=== PATIENT | female | born 2000 | race Caucasian/White ===

== ENCOUNTER 2022-03-31 19:02 | Emergency (ER) | payer BC, SELFPAY ==
[2022-03-31 19:14] VITALS: BP 135/93; PULSE 118; RESP 16; TEMP 36.6; O2SAT 99; BMI 28.9
--- NOTE | 2022-03-31 19:31 | ED_ITS ---
HPI - General Adult General Time Seen by Provider: 19:31 Date Seen: 03/31/22 Chief complaint: Fever Stated complaint: fever, nausea, body aches Time Seen by Provider: 03/31/22 19:30 Source: patient and RN notes reviewed Mode of arrival: ambulatory Limitations: no limitations History of Present Illness HPI narrative: Patient is coming in accompanied by family with concern of fever, body aches. She had 1 episode of vomiting that just happened on her way in. Has noticed increased urinary frequency. No sore throat, no cough, no other focal symptoms. No abdominal pain, no diarrhea. She states she had COVID 2 years ago, states she has not been around anybody with COVID. She has had no travel. She is no longer feeling nauseated, states she feels back to normal as far as her stomach. Related Data Home Medications Medication Instructions Recorded Confirmed ferrous sulfate PO 03/31/22 Allergies Allergy/AdvReac Type Severity Reaction Status Date / Time amoxicillin Allergy Verified 03/31/22 19:16 ibuprofen Allergy Verified 03/31/22 19:16 Review of Systems Status of ROS: Reports: 6 or more systems reviewed and unremarkable except as noted in History and below [facility] Medical History (Updated 03/31/22 @ 21:19 by Jeimy Katz MD) Anemia Social History Smoking Status: Never smoker How often do you have a drink containing alcohol: monthly or less AUDIT-C Alcohol total score: 1 Non-prescribed substance use: denies use Exam Const: Vital Signs, click to edit/add: Vital Signs - 24 hr 03/31/22 19:14 Temperature 97.8 F Pulse Rate [Left P ulse Oximeter] 118 H Respiratory Rate 16 Blood Pressure [Le ft Upper Arm] 135/93 H Pulse Oximetry 99 Oxygen Delivery Me thod Room Air Documenting provider has reviewed patient's vital signs: yes Common normals: no apparent distress, average body habitus, oriented x3, no limitations, healthy appearing, alert and well nourished General appearance: cooperative, comfortable and well kempt HENMT: Common normals: normocephalic, head/scalp atraumatic, hearing grossly normal bilaterally, external nose normal, nasal mucous membranes and turbinates normal, moist oral mucous membranes, oropharynx normal, dentition normal and gingiva normal Head and scalp: normocephalic and atraumatic Nose: external nose normal and nasal mucous membranes and turbinates normal Eye: Common normals: PERRL, EOMs intact bilaterally, conjunctivae normal and no scleral icterus Conjunctiva: conjunctiva(e) normal Pupil: PERRL Neck & C-Spine: Common normals: full ROM, no lymphadenopathy, supple, no meningeal signs, no JVD and thyroid normal Thyroid: thyroid normal Resp: Common normals: normal respiratory effort, no retractions, no use of accessory muscles and clear to auscultation bilaterally Auscultation: clear to auscultation bilaterally Cardio: Common normals: no JVD, regular rate (Did not sound fast when I was listening to her), regular rhythm, S1 normal heart sound, S2 normal heart sound, no gallops, no clicks and no murmurs Rate: regular rate (Did not sound fast when I was listening to her) Rhythm: regular rhythm Heart sounds: S1 normal and S2 normal GI: Common normals: Normal to inspection, nondistended, normoactive bowel sounds present, soft to palpation, non-tender, no hepatosplenomegaly, no masses and no bruits Palpation: soft and no hepatosplenomegaly Neuro: Common normals: oriented x3 Sensorium/orientation: alert Meningeal signs: no meningeal signs Speech: speech normal Gait (neuro): normal gait Psych: Appearance: well kempt Skin: Common normals: no rashes or lesions noted General skin exam: no rashes or lesions noted Course Course Hospital Course: She has had some increased urinary frequency but no other symptoms with this. Reviewed with her that we will collect urinalysis. She denies any history of UTIs. She denies any chance for . Will also get a CBC to help us delineate whether this might be viral or bacterial and workup potentially needed. We are going to do COVID/influenza/RSV swab. Did review with her that I am suspect regarding COVID if her urinalysis does come back normal. Vital Signs Vital signs: Initial Vital Signs Temperature 97.8 F 03/31/22 19:14 Temperature Source Temporal Artery Scan 03/31/22 19:14 Pulse Rate 118 H 03/31/22 19:14 Pulse Rhythm 03/31/22 19:14 Respiratory Rate 16 03/31/22 19:14 Blood Pressure 135/93 H 03/31/22 19:14 Blood Pressure Mean 107 03/31/22 19:14 Blood Pressure Position Sitting 03/31/22 19:14 Pulse Oximetry 99 03/31/22 19:14 Oxygen Delivery Method 03/31/22 19:14 Vital Signs Temperature 97.8 F 03/31/22 19:14 Pulse Rate 118 H 03/31/22 19:14 Respiratory Rate 16 03/31/22 19:14 Blood Pressure 135/93 H 03/31/22 19:14 Pulse Oximetry 99 03/31/22 19:14 Oxygen Delivery Method 03/31/22 19:14 Temperature 97.8 F 03/31/22 19:14 Pulse Rate 118 H 03/31/22 19:14 Respiratory Rate 16 03/31/22 19:14 Blood Pressure 135/93 H 03/31/22 19:14 Pulse Oximetry 99 03/31/22 19:14 Oxygen Delivery Method 03/31/22 19:14 Medical Decision Making Lab Data Lab results reviewed: Yes I reviewed the patient's lab results Lab results narrative: Patient has known thrombocytopenia due to splenomegaly insert request radiation, has chronic thrombocytopenia in the 40,000 range. Labs: Lab Results 03/31/22 03/31/22 03/31/22 Range/Units 19:42 20:02 20:16 WBC 2.98 L (4.50-11.00) K/uL RBC 4.24 (4.00-5.20) m/uL Hgb 12.6 (12.0-16.0) gm/dL Hct 37.2 (33.0-51.0) % MCV 88 (80-100) fL MCH 30 (26-34) pg MCHC 34 (32-36) gm/dL RDW Coeff of Joss 14.4 (11.5-15.5) % Plt Count 42 L* (140-440) K/uL Neut % (Auto) 83.6 H (42.0-72.0) % Lymph % (Auto) 12.1 L (20-44) % [place] % (Auto) 3.0 (0.0-11.0) % Eos % (Auto) 1.0 (0.0-7.0) % Baso % (Auto) 0.0 (0.0-3.0) % Neut # (Auto) 2.50 (1.7-7.0) K/uL Lymph # (Auto) 0.40 L (0.90-2.90) K/uL [place] # (Auto) 0.10 (0.00-0.90) K/UL Eos # (Auto) 0.00 (0.00-0.50) K/uL Baso # (Auto) 0.00 (0.00-0.30) K/uL Abs Immat Gran (auto) 0.01 (0.00-0.30) K/uL Urine Color Yellow (Yellow) Urine Appearance Clear (Clear) Urine pH 8.5 (5.0-8.5) Ur Specific [place] 1.020 (1.000-1.030) Urine Protein Negative (Negative) Urine Glucose (UA) Negative (Negative) Urine Ketones Negative (Negative) Urine Blood 1+ A (Negative) Urine Nitrite Negative (Negative) Urine Bilirubin Negative (Negative) Urine Urobilinogen 4.0 (0.2-1.0) Ur Leukocyte Esterase Trace A (Negative) Urine RBC 10-25 A (0-2) Urine WBC 10-25 A (0-5) Ur Squamous Epith Cells Moderate A (None-Few) Urine Bacteria Moderate A (None) SARS-CoV-2 (PCR) Negative SARS-CoV-2 (Negative) Influenza Type A (PCR) Negative PCR FLU A (Negative) Influenza Type B (PCR) Negative PCR FLU B (Negative) RSV (PCR) Negative PCR RSV (Negative) Critical Care Time Critical Care Time Critical Care Time: No Discharge Plan Discharge Clinical Impression: Fever, Acute viral syndrome Patient Disposition: Home, Self-Care Condition: Stable Instructions: Fever in Adults (ED), Viral Syndrome (ED) Additional Instructions: Take Tylenol per bottle directions as needed for fever. Stay hydrated, drink plenty of fluids. Recheck if you develop a specific symptoms such as a cough, recurrent vomiting, sore throat, etc.. If you have continued symptoms but are not changing, would consider rechecking COVID testing in 24-48 hours. Note provided to be off work for the next 2 days. Activity Level: Activity as Tolerated Discharge Diet: Regular Prescriptions: No Action ferrous sulfate [Iron (ferrous sulfate)] PO Stand Alone Forms: [employer] [facility] Info Instructions
--- NOTE | 2022-03-31 20:03 | ED.NURSE ---
labs drawn and collected the COVID test.
[2022-03-31 20:08] LABS: Hematocrit 37.2 % (33.0-51.0); Hemoglobin* 12.6 gm/dL (12.0-16.0); Immature Granulocytes Abs Auto 0.01 K/uL (0.00-0.30); Lymphocytes Percent Auto 12.1 % (20-44); Mean Corpuscular HGB Conc 34 gm/dL (32-36); Mean Corpuscular Hemoglobin 30 pg (26-34); Mean Corpuscular Volume 88 fL (80-100); Neutrophils Percent Auto 83.6 % (42.0-72.0); RDW Coefficient of Variation % 14.4 % (11.5-15.5); Red Blood Count 4.24 m/uL (4.00-5.20); White Blood Count* 2.98 K/uL (4.50-11.00)
[2022-03-31 20:31] LABS: Appearance Urine Clear (Clear); Bilirubin Urine Negative (Negative); Blood Urine 1+ (Negative); Color Urine Yellow (Yellow); Glucose Urine Negative (Negative); Ketones Urine Negative (Negative); Leukocyte Esterase Urine Trace (Negative); Nitrite Urine Negative (Negative); Protein Urine Negative (Negative); pH Urine 8.5 (5.0-8.5)
[2022-03-31 20:43] LABS: PCR FLU A Negative PCR FLU A (Negative); PCR FLU B Negative PCR FLU B (Negative); PCR RSV Negative PCR RSV (Negative)
[2022-03-31 20:47] LABS: SARS PCR* Negative SARS-CoV-2 (Negative)
[2022-03-31 20:48] LABS: Bacteria Urine Moderate; Squamous Epithelial Cell Urine Moderate (None-Few)
[2022-03-31 20:54] LABS: Platelet Count* 42 K/uL (140-440); Slide Review Reflex No
--- NOTE | 2022-03-31 20:54 | ED.NURSE ---
Noticed from lab critical plt [address] Clemente of this
[2022-03-31 21:00] VITALS: BP 104/60; PULSE 110; RESP 16; RESP 18; TEMP 38.6; O2SAT 98
--- NOTE | 2022-03-31 21:02 | ED.NURSE ---
Dr. Clemente is in talking with patient
[2022-03-31] MEDS: ACETAMINOPHEN 500 MG TABLET 1000 MG PO (21:09)
[2022-03-31 21:20] VITALS: PULSE 114; RESP 18; TEMP 38.6; O2SAT 98
[2022-03-31 21:28] VITALS: BP 104/60; PULSE 110; RESP 18; TEMP 38.6
== END 2022-03-31 21:30 | disposition home or self-care (01) ==
PROVIDERS: Emergency Provider Family Medicine
DX: R50.9 Fever, unspecified (principal); B34.9 Viral infection, unspecified
CPT/HCPCS: 36415; 81001; 85025; 87086; 87186; 87502; 87634; 87635; 99282; 99283; A9270

== ENCOUNTER 2022-04-02 02:26 | Inpatient (IN) | payer BC, SELFPAY ==
[2022-04-02] VITALS (12 sets, daily range): BP systolic 86–135; BP diastolic 39–80; PULSE 90–136; RESP 16–20; TEMP 36.9–39.2; O2SAT 94–98; BMI 28.9
--- NOTE | 2022-04-02 03:24 | ED_ITS ---
HPI - Fever General Chief Complaint: Unspecified Complaint, Adult Stated Complaint: Fever Time Seen by Provider: 04/02/22 03:09 History of Present Illness HPI Narrative: 21-year-old young woman presenting to the emergency department with concern of fever vomiting body aches. She has been shaking. Was seen here less than 2 days ago. Thought to have had a viral illness. Did have urinary frequency at that time. The urinary frequency has continued. Has vomited maybe 12 times today: Sounds like once on the No hematemesis described. I see yellow- green vomitus upon entering the room for interview; she has just finished vomiting. Does have some abdominal pain but not as primary complaint or any more tender there than over the rest of her body. Notes having a bad headache though. Has not noticed any rash. Does have thrombocytopenia and has been bruising. Home COVID testing today was negative. On 03/31 was negative for COVID and influenza Urine since last visit has grown out Gram-negative rods past medical Includes splenomegaly, anxiety, depression, suicide attempt as a young teen with pill ingestion chest pain.? has exacerbations of anxiety.? 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 She has thrombocytopenia leukopenia, thought related to splenic sequestration.? She has also had a herniorrhaphy and esophageal varices banded in 2004, I believe. Ovarian cysts. PCOS IBS GERD Related Data Home Medications Medication Instructions Recorded Confirmed ferrous sulfate 325 mg (65 mg 325 mg PO DAILY 04/02/22 04/02/22 iron) tablet (Feosol) Allergies Allergy/AdvReac Type Severity Reaction Status Date / Time amoxicillin Allergy Verified 04/02/22 02:41 ibuprofen Allergy Verified 04/02/22 02:41 octreotide Allergy Hives Verified 04/02/22 02:41 sulfamethoxazole Allergy nausea Verified 04/02/22 02:41 [From vomiting Sulfamethoxazole-Trimethoprim] trimethoprim Allergy nausea Verified 04/02/22 02:41 [From vomiting Sulfamethoxazole-Trimethoprim] aspirin AdvReac Verified 04/02/22 02:41 Review of Systems Status of ROS Reports: 10 or more systems reviewed and unremarkable except as noted in History and below [facility] Medical History Anemia Esophageal varices Hernia Thrombocytopenia Family History (Updated 04/02/22 @ 10:23 by Olivia Martin RN) Father DM (diabetes mellitus), type 2 Social History Highest level of school completed/degree received: high school graduate Smoking Status: Never smoker How often do you have a drink containing alcohol: monthly or less AUDIT-C Alcohol total score: 1 Non-prescribed substance use: denies use Caffeine: Yes service: No Exam Narrative Exam Narrative: Looks uncomfortable. Has just vomited yellowish-green/clear vomitus into a vomit bag. Skin is warm. There is a small fresh bruise on the right outer lower leg. noninflamed scrape on anterior right ankle. A broader fresh bruise on the left outer lower leg. No rash appreciated. Cranial nerves 2-12 are intact. She is speaking is easily. Appears to be cognitively clear. Visit is conducted in combination [place] and [place] and sometimes she is interpreting for her mother. Oropharynx is moist not erythematous though there is little bit of speckling in the roof of the mouth Neck is supple. Lungs are clear Abdomen is soft without peritoneal signs. She is sore generally to palpation perhaps a little more across the low abdomen and significantly also to palpation in the flanks and lower back generally. Bowel sounds are present. Cardiovascular is tachycardic. Regular rhythm Const Vital Signs, click to edit/add: Vital Signs - 24 hr 04/02/22 02:35 Temperature 102.6 F H Pulse Rate [Left Pulse Oximeter] 136 H Respiratory Rate 18 Blood Pressure [Right Upper Arm] 135/80 Pulse Oximetry 97 Oxygen Delivery Method Room Air Documenting provider has reviewed patient's vital signs: yes Course Course Hospital Course: Interview and exam as above. Understandably she prefers to avoid ibuprofen and similar medications Reevaluation(s) Reevaluation #1: Blood pressure stable. Heart rate is no longer tachycardic; upper 90s Appears more relaxed, comfortable Vital Signs Vital signs: Initial Vital Signs Temperature 102.6 F H 04/02/22 02:35 Temperature Source Temporal Artery Scan 04/02/22 02:35 Pulse Rate 136 H 04/02/22 02:35 Respiratory Rate 18 04/02/22 02:35 Blood Pressure 135/80 04/02/22 02:35 Blood Pressure Mean 98 04/02/22 02:35 Blood Pressure Position Sitting 04/02/22 02:35 Pulse Oximetry 97 04/02/22 02:35 Oxygen Delivery Method 04/02/22 02:35 Vital Signs Temperature 102.6 F H 04/02/22 02:35 Pulse Rate 136 H 04/02/22 02:35 Respiratory Rate 18 04/02/22 02:35 Blood Pressure 135/80 04/02/22 02:35 Pulse Oximetry 97 04/02/22 02:35 Oxygen Delivery Method 04/02/22 02:35 Temperature 100.2 F H 04/02/22 11:17 Pulse Rate 96 04/02/22 10:42 Respiratory Rate 18 04/02/22 10:42 Blood Pressure 86/48 L 04/02/22 10:42 Pulse Oximetry 94 04/02/22 10:42 Oxygen Delivery Method 04/02/22 10:42 MDM - Fever MDM Narrative Medical decision making narrative: Initial concern is sepsis. Differential also includes urinary tract infection with vomiting and dehydration. Interpretation of labs perhaps complicated little bit given thrombocytopenia and leukopenia history along with related historically mildly elevated bilirubin Again urine culture from 03/31 is growing Gram-negative rods Initiating fluid resuscitation. Blood cultures collected. type and screen Confirmed amoxicillin allergy at least is rash Antibiotics ordered improved though likely sepsis with urinary source, numerous comorbidities and bleeding risk. antibiotics focused on recent urinary culture Medical Records Attestation: I reviewed the patient's medical records. Lab Data Attestation: I reviewed the patient's lab results. Labs: Lab Results 04/02/22 04/02/22 04/02/22 Range/Units 03:25 03:45 03:45 WBC 3.36 L (4.50-11.00) K/uL RBC 4.42 (4.00-5.20) m/uL Hgb 13.2 (12.0-16.0) gm/dL Hct 38.6 (33.0-51.0) % MCV 87 (80-100) fL MCH 30 (26-34) pg MCHC 34 (32-36) gm/dL RDW Coeff of Joss 14.3 (11.5-15.5) % Plt Count 36 L* (140-440) K/uL Neut % (Auto) 83.4 H (42.0-72.0) % Lymph % (Auto) 8.0 L (20-44) % [place] % (Auto) 7.7 (0.0-11.0) % Eos % (Auto) 0.9 (0.0-7.0) % Baso % (Auto) 0.0 (0.0-3.0) % Neut # (Auto) 2.80 (1.7-7.0) K/uL Lymph # (Auto) 0.30 L (0.90-2.90) K/uL [place] # (Auto) 0.30 (0.00-0.90) K/UL Eos # (Auto) 0.00 (0.00-0.50) K/uL Baso # (Auto) 0.00 (0.00-0.30) K/uL Abs Immat Gran (auto) 0.00 (0.00-0.30) K/uL Diff Slide Review (Acceptable) INR (0.91-1.10) Sodium 137 (135-149) mmol/L Potassium 3.7 (3.6-5.1) mmol/L Chloride 105 (96-114) mmol/L Carbon Dioxide 27 (20-32) mmol/L BUN 18 (5-24) mg/dL Creatinine 0.8 (0.5-1.5) mg/dL Estimated Creat Clear 83.24 Estimated GFR 107 ml/min Glucose 104 (60-115) mg/dL Venous Lactic Acid (Serial Order) Calcium 8.3 L (8.4-10.6) mg/dL Total Bilirubin 2.9 H (0.1-1.5) mg/dL AST 26 (12-35) U/L ALT 24 (4-35) U/L Alkaline Phosphatase 109 (40-150) U/L C-Reactive Protein 4.4 H (0.5-1.0) mg/dL Total Protein 7.0 (6.0-8.3) g/dL Albumin 3.8 (3.3-5.0) g/dL Urine Color Yellow (Yellow) Urine Appearance Cloudy A (Clear) Urine pH 8.5 (5.0-8.5) Ur Specific [place] 1.015 (1.000-1.030) Urine Protein 1+ A (Negative) Urine Glucose (UA) Negative (Negative) Urine Ketones Negative (Negative) Urine Blood 2+ A (Negative) Urine Nitrite Positive A (Negative) Urine Bilirubin Negative (Negative) Urine Urobilinogen 4.0 (0.2-1.0) Ur Leukocyte Esterase 1+ A (Negative) Urine RBC 0-2 (0-2) Urine WBC 5-10 A (0-5) Ur Squamous Epith Cells Moderate A (None-Few) Urine Bacteria Many A (None) SARS-CoV-2 (PCR) (Negative) Blood Type Antibody Screen 04/02/22 04/02/22 04/02/22 Range/Units 03:50 05:18 09:19 WBC (4.50-11.00) K/uL RBC (4.00-5.20) m/uL Hgb (12.0-16.0) gm/dL Hct (33.0-51.0) % MCV (80-100) fL MCH (26-34) pg MCHC (32-36) gm/dL RDW Coeff of Joss (11.5-15.5) % Plt Count (140-440) K/uL Neut % (Auto) (42.0-72.0) % Lymph % (Auto) (20-44) % [place]uthrie % (Auto) (0.0-11.0) % Eos % (Auto) (0.0-7.0) % Baso % (Auto) (0.0-3.0) % Neut # (Auto) (1.7-7.0) K/uL Lymph # (Auto) (0.90-2.90) K/uL [place] # (Auto) (0.00-0.90) K/UL Eos # (Auto) (0.00-0.50) K/uL Baso # (Auto) (0.00-0.30) K/uL Abs Immat Gran (auto) (0.00-0.30) K/uL Diff Slide Review (Acceptable) INR 1.60 H (0.91-1.10) Sodium (135-149) mmol/L Potassium (3.6-5.1) mmol/L Chloride (96-114) mmol/L Carbon Dioxide (20-32) mmol/L BUN (5-24) mg/dL Creatinine (0.5-1.5) mg/dL Estimated Creat Clear Estimated GFR ml/min Glucose (60-115) mg/dL Venous Lactic Acid (Serial Order) Calcium (8.4-10.6) mg/dL Total Bilirubin (0.1-1.5) mg/dL AST (12-35) U/L ALT (4-35) U/L Alkaline Phosphatase (40-150) U/L C-Reactive Protein (0.5-1.0) mg/dL Total Protein (6.0-8.3) g/dL Albumin (3.3-5.0) g/dL Urine Color (Yellow) Urine Appearance (Clear) Urine pH (5.0-8.5) Ur Specific [place] (1.000-1.030) Urine Protein (Negative) Urine Glucose (UA) (Negative) Urine Ketones (Negative) Urine Blood (Negative) Urine Nitrite (Negative) Urine Bilirubin (Negative) Urine Urobilinogen (0.2-1.0) Ur Leukocyte Esterase (Negative) Urine RBC (0-2) Urine WBC (0-5) Ur Squamous Epith Cells (None-Few) Urine Bacteria (None) SARS-CoV-2 (PCR) Negative SARS-CoV-2 (Negative) Blood Type Antibody Screen 04/02/22 04/02/22 Range/Units 09:19 09:19 WBC 2.30 L (4.50-11.00) K/uL RBC 3.70 L (4.00-5.20) m/uL Hgb 11.0 L (12.0-16.0) gm/dL Hct 32.6 L (33.0-51.0) % MCV 88 (80-100) fL MCH 30 (26-34) pg MCHC 34 (32-36) gm/dL RDW Coeff of Joss 14.2 (11.5-15.5) % Plt Count 36 L* (140-440) K/uL Neut % (Auto) 86.6 H (42.0-72.0) % Lymph % (Auto) 8.3 L (20-44) % [place] % (Auto) 3.9 (0.0-11.0) % Eos % (Auto) 0.4 (0.0-7.0) % Baso % (Auto) 0.4 (0.0-3.0) % Neut # (Auto) 2.00 (1.7-7.0) K/uL Lymph # (Auto) 0.20 L (0.90-2.90) K/uL [place] # (Auto) 0.10 (0.00-0.90) K/UL Eos # (Auto) 0.00 (0.00-0.50) K/uL Baso # (Auto) 0.00 (0.00-0.30) K/uL Abs Immat Gran (auto) 0.01 (0.00-0.30) K/uL Diff Slide Review Acceptable Review (Acceptable) INR (0.91-1.10) Sodium (135-149) mmol/L Potassium (3.6-5.1) mmol/L Chloride (96-114) mmol/L Carbon Dioxide (20-32) mmol/L BUN (5-24) mg/dL Creatinine (0.5-1.5) mg/dL Estimated Creat Clear Estimated GFR ml/min Glucose (60-115) mg/dL Venous Lactic Acid (Serial Order) Calcium (8.4-10.6) mg/dL Total Bilirubin (0.1-1.5) mg/dL AST (12-35) U/L ALT (4-35) U/L Alkaline Phosphatase (40-150) U/L C-Reactive Protein (0.5-1.0) mg/dL Total Protein (6.0-8.3) g/dL Albumin (3.3-5.0) g/dL Urine Color (Yellow) Urine Appearance (Clear) Urine pH (5.0-8.5) Ur Specific [place] (1.000-1.030) Urine Protein (Negative) Urine Glucose (UA) (Negative) Urine Ketones (Negative) Urine Blood (Negative) Urine Nitrite (Negative) Urine Bilirubin (Negative) Urine Urobilinogen (0.2-1.0) Ur Leukocyte Esterase (Negative) Urine RBC (0-2) Urine WBC (0-5) Ur Squamous Epith Cells (None-Few) Urine Bacteria (None) SARS-CoV-2 (PCR) (Negative) Blood Type O Positive Antibody Screen NEGATIVE Critical Care Time Critical Care Time Critical Care Time: Yes Attestation: The patient required my highest level preparedness to intervene emergently and I personally spent this critical care time directly and personally managing the patient. This critical care time included: Obtaining a history; Examining the patient; Pulse oximetry; Ordering and reviewing of studies; Arranging urgent treatment with development of a management plan; Evaluation of patients response to treatment; Frequent reassessment discussions with other providers. This critical care time was performed to assess and manage the high probability of imminent life-threatening deterioration that could result in multiorgan failure. It was exclusive of separate billable procedures and treating other patients and teaching time. Total Critical Care Time in Minutes: 50 Discharge Plan Discharge Clinical Impression: Urinary tract infection, Sepsis, Thrombocytopenia Patient Disposition: Admitted As Inpatient Condition: Stable
[2022-04-02] MEDS: ACETAMINOPHEN 500 MG TABLET 1000 MG PO (03:45)
[2022-04-02] MEDS: 0.9 % SODIUM CHLORIDE 1000 ml 1,000 ML IV ×3 (03:45→10:41)
[2022-04-02] MEDS: ONDANSETRON 2 MG/ML inj 4 MG IVP (03:45)
[2022-04-02 03:57] LABS: Eosinophils Percent Auto 0.9 % (0.0-7.0); Hematocrit 38.6 % (33.0-51.0); Hemoglobin* 13.2 gm/dL (12.0-16.0); Mean Corpuscular HGB Conc 34 gm/dL (32-36); Mean Corpuscular Hemoglobin 30 pg (26-34); Mean Corpuscular Volume 87 fL (80-100); Monocytes Percent Auto 7.7 % (0.0-11.0); Neutrophils Percent Auto 83.4 % (42.0-72.0); RDW Coefficient of Variation % 14.3 % (11.5-15.5); Red Blood Count 4.42 m/uL (4.00-5.20); White Blood Count* 3.36 K/uL (4.50-11.00)
[2022-04-02 03:59] LABS: Platelet Count* 36 K/uL (140-440); Slide Review Reflex No
[2022-04-02 04:02] LABS: Appearance Urine Cloudy (Clear); Bilirubin Urine Negative (Negative); Blood Urine 2+ (Negative); Color Urine Yellow (Yellow); Glucose Urine Negative (Negative); Ketones Urine Negative (Negative); Leukocyte Esterase Urine 1+ (Negative); Nitrite Urine Positive (Negative); Protein Urine 1+ (Negative); Specific Gravity Urine 1.015 (1.000-1.030); pH Urine 8.5 (5.0-8.5)
[2022-04-02 04:06] LABS: Albumin* 3.8 g/dL (3.3-5.0); Chloride* 105 mmol/L (96-114); Sodium* 137 mmol/L (135-149)
[2022-04-02 04:07] LABS: Potassium* 3.7 mmol/L (3.6-5.1)
[2022-04-02 04:09] LABS: Alkaline Phosphatase* 109 U/L (40-150); Aspartate Amino Transferase* 26 U/L (12-35); Bilirubin Total* 2.9 mg/dL (0.1-1.5); Blood Urea Nitrogen* 18 mg/dL (5-24); Carbon Dioxide* 27 mmol/L (20-32); Creatinine* 0.8 mg/dL (0.5-1.5); Est. Creatinine Clearance* 83.24; Estimated Glomerular Filt Rate 107 ml/min
[2022-04-02 04:10] LABS: Alanine Aminotransferase* 24 U/L (4-35); Calcium* 8.3 mg/dL (8.4-10.6); Glucose* 104 mg/dL (60-115)
[2022-04-02 04:12] LABS: C Reactive Protein* 4.4 mg/dL (0.5-1.0)
[2022-04-02 04:30] LABS: Bacteria Urine Many; RBC Urine 0-2 (0-2); Squamous Epithelial Cell Urine Moderate (None-Few)
[2022-04-02] MEDS: LACTATED RINGERS 1000 ML IV (05:25)
--- NOTE | 2022-04-02 05:32 | ED.NURSE ---
UTI prevention care notes printed for patient education.
[2022-04-02 06:15] LABS: SARS PCR* Negative SARS-CoV-2 (Negative)
--- NOTE | 2022-04-02 06:25 | W.PC.EDHO ---
Primary Language: Preferred Language: Orientation Status: [x] Alert & Oriented [] Slight Confusion [] Known Dx Dementia Transfers By: independent [] Assist of 1 [] Assist of 2 [] Lift Active Medications Discontinued Medications Generic Name Dose Route Start Last Admin Trade Name Candelario PRN Reason Stop Dose Admin Acetaminophen 1,000 mg 04/02/22 03:23 04/02/22 03:45 Acetaminophen 500 Mg Tablet PO 04/02/22 03:24 1,000 mg ONCE ONE Administration Sodium Chloride 1,000 mls @ 1,000 mls/hr 04/02/22 03:19 04/02/22 03:45 0.9 % Sodium Chloride 1000 Ml IV 04/02/22 04:18 1,000 mls/hr .Q1H ONE Administration Imipenem/Cilastatin Sodium 500 100 mls @ 100 mls/hr 04/02/22 04:33 04/02/22 05:21 mg/ Sodium Chloride IVPB 04/02/22 04:34 100 mls/hr ONCE ONE Administration Vancomycin HCl 1,500 mg/ 515 mls @ 257.5 mls/hr 04/02/22 04:37 04/02/22 06:19 Sodium Chloride IVPB 04/02/22 04:38 Not Given ONCE ONE Protocol Lactated Ringer's 1,000 ml 04/02/22 04:52 04/02/22 05:25 Lactated Ringers 1000 Ml IV 04/02/22 04:53 1,000 ml ONCE ONE Administration Ondansetron HCl 4 mg 04/02/22 03:23 04/02/22 03:45 Ondansetron 2 Mg/Ml Inj IVP 04/02/22 03:24 4 mg ONCE ONE Administration Description of Symptoms ED Triage Present Problem was here on for fever, shaking, body aches, Description dizziness, headache, vomiting, muscles feel stiff. returns with continued symptoms ED Triage Date of Onset of 03/31/22 Symptoms Female History Patient No: explanon Pain Pain Intensity [Generalized] 8 Pain Intensity 5 Pain Scale Used [Generalized] Numeric (1 - 10) Pain Scale Used Numeric (1 - 10) Oxygen Administration Pulse Oximetry 97 Oxygen Delivery Method Room Air
--- NOTE | 2022-04-02 08:58 | PM.IMHP1 ---
Hospitalist- H&P: HPI History of Present Illness Time Seen by Provider: 07:00 Date Seen: 04/02/22 Chief complaint: Fever Narrative: Nelly Soto is a 21 year old female who presented to the emergency room for 2 day history of fever, severe rigors, generalized pain (diffuse, most notable in back and abdomen), and vomiting. She had 1 episode of vomiting today that had some light pink coloration, concerning for hematemesis. She has had no diarrhea or constipation. She has had a mild ?tingling? when she is urinating. She was seen in the emergency room on 03/31 for similar symptoms, at that time presumed to have a viral illness. Urine culture was collected at that time and has resulted positive this morning. Patient has significant past medical history including cavernous transformation of the portal vein, splenomegaly, esophageal varices post bleed and banding, chronic splenomegaly resulting in chronic thrombocytopenia. She sees Dr. Lynne of hepatology at the [facility]. ED course and findings: - thrombocytopenia (close to baseline, outpatient platelets of 40 in May 2021) - fever and hypotension, concerning for sepsis. Urine culture from 03/31 is growing > [id number] CFU of pansensitive E coli - Given 1 dose of Primaxin She was initially accepted by orestes GRIFFITH tele hospitalist, but arrived to the floor early this morning so I saw her for H&P. Patient continues to have pain and rigors, she also continues to feel febrile. Review of Systems Status of ROS: Reports: 10 or more systems reviewed and unremarkable except as noted in History and below [facility] Medical History (Updated 04/02/22 @ 10:22 by Olivia Martin RN) Anemia Esophageal varices Hernia Thrombocytopenia Family History (Updated 04/02/22 @ 10:23 by Olivia Martin RN) Father DM (diabetes mellitus), type 2 Social History Highest level of school completed/degree received: high school graduate Smoking Status: Never smoker How often do you have a drink containing alcohol: monthly or less AUDIT-C Alcohol total score: 1 Non-prescribed substance use: denies use Caffeine: Yes service: No Meds Home Medications and Allergies Home Medications Medication Instructions Recorded Confirmed Type ferrous sulfate 325 mg (65 mg 325 mg PO DAILY 04/02/22 04/02/22 History iron) tablet (Feosol) Allergies Allergy/AdvReac Type Severity Reaction Status Date / Time amoxicillin Allergy Verified 04/02/22 02:41 ibuprofen Allergy Verified 04/02/22 02:41 octreotide Allergy Hives Verified 04/02/22 02:41 sulfamethoxazole Allergy nausea Verified 04/02/22 02:41 [From vomiting Sulfamethoxazole-Trimethoprim] trimethoprim Allergy nausea Verified 04/02/22 02:41 [From vomiting Sulfamethoxazole-Trimethoprim] aspirin AdvReac Verified 04/02/22 02:41 Exam Narrative: Exam Narrative: GEN: Alert and oriented, answering questions appropriately, appears ill with rigors HEENT: Normal external ears, EOMIs bilaterally CV: Tachycardia with heart rate in the 120s and soft systolic murmur noted R: LCTA bilaterally without concerning wheezing, rales, or rhonchi Abdomen: Soft without distention, mild discomfort with palpation, + splenomegaly Ext: wwp, no concerning edema Skin: No concerning skin lesions or rashes on exposed skin Neuro: Nonfocal Psych: Appropriate Const: Vital Signs, click to edit/add: Vital Signs - 24 hr 04/02/22 02:35 04/02/22 06:31 04/02/22 04:00 Temperature 102.6 F H 100.1 F H Pulse Rate [Left P ulse Oximeter] 136 H 115 H Pulse Rate [Right Pulse Oximeter] Respiratory Rate 18 16 Blood Pressure [Le ft Arm] Blood Pressure [Ri ght Upper Arm] 135/80 110/63 Pulse Oximetry 97 97 Oxygen Delivery Me thod Room Air Room Air 04/02/22 04:30 04/02/22 05:00 04/02/22 05:30 Temperature Pulse Rate [Left P ulse Oximeter] 102 H 101 H 100 Pulse Rate [Right Pulse Oximeter] Respiratory Rate 16 16 16 Blood Pressure [Le ft Arm] Blood Pressure [Ri ght Upper Arm] 99/65 100/58 L 109/62 Pulse Oximetry 97 96 97 Oxygen Delivery Me thod Room Air Room Air Room Air 04/02/22 06:00 04/02/22 06:30 04/02/22 07:59 Temperature 98.4 F Pulse Rate [Left P ulse Oximeter] 90 98 Pulse Rate [Right Pulse Oximeter] 127 H Respiratory Rate 16 16 20 Blood Pressure [Le ft Arm] 119/39 L Blood Pressure [Ri ght Upper Arm] 101/57 L 102/51 L Pulse Oximetry 94 97 98 Oxygen Delivery Me thod Room Air Room Air Room Air Hospitalist - H&P: Result Labs Labs: Short CBC 04/02/22 Range/Units 03:45 WBC 3.36 L (4.50-11.00) K/uL Hgb 13.2 (12.0-16.0) gm/dL Hct 38.6 (33.0-51.0) % Plt Count 36 L* (140-440) K/uL BMP 04/02/22 03:45 Sodium 137 Potassium 3.7 Chloride 105 Carbon Dioxide 27 BUN 18 Creatinine 0.8 Glucose 104 Calcium 8.3 L Liver Function 04/02/22 Range/Units 03:45 Total Bilirubin 2.9 H (0.1-1.5) mg/dL AST 26 (12-35) U/L ALT 24 (4-35) U/L Alkaline Phosphatase 109 (40-150) U/L Albumin 3.8 (3.3-5.0) g/dL Urine 04/02/22 Range/Units 03:25 Urine Color Yellow (Yellow) Urine Appearance Cloudy A (Clear) Urine pH 8.5 (5.0-8.5) Ur Specific [place] 1.015 (1.000-1.030) Urine Protein 1+ A (Negative) Urine Glucose (UA) Negative (Negative) Assessment and Plan Assessment and plan (1) Thrombocytopenia: Status: Acute (2) Leukopenia: Status: Acute (3) Fever: Status: Acute (4) Esophageal varices: Status: Acute (5) Sepsis: Status: Acute (6) Urinary tract infection: Status: Acute (7) Cavernous transformation of portal vein: Status: Acute Plan Patient is acutely ill with sepsis and significant comorbidities that require higher level of care. Called and discussed the case with Dr. Sanchez, on-call compensation consulting manager at the [facility]. He agrees that patient requires a higher level of care; unfortunately, there are no beds available in the in the [place] system. Discussed case with Dr. Worrell, rn internal medicine at [facility], who agrees to accept patient. While we await transport, will continue CCU status, aggressive IVF rehydration, monitoring of CBC, Primaxin.
[2022-04-02] MEDS: 0.9 % SODIUM CHLORIDE 1000 ml 1,000 ML 150 ML IV (09:11)
[2022-04-02 09:33] LABS: Basophils Percent Auto 0.4 % (0.0-3.0); Eosinophils Percent Auto 0.4 % (0.0-7.0); Hematocrit 32.6 % (33.0-51.0); Immature Granulocytes Abs Auto 0.01 K/uL (0.00-0.30); Lymphocytes Percent Auto 8.3 % (20-44); Mean Corpuscular HGB Conc 34 gm/dL (32-36); Mean Corpuscular Hemoglobin 30 pg (26-34); Mean Corpuscular Volume 88 fL (80-100); Monocytes Percent Auto 3.9 % (0.0-11.0); Neutrophils Percent Auto 86.6 % (42.0-72.0); RDW Coefficient of Variation % 14.2 % (11.5-15.5)
[2022-04-02 09:46] LABS: Prothrombin Time 19.4 Seconds
[2022-04-02 09:52] LABS: Platelet Count* 36 K/uL (140-440)
[2022-04-02 11:15] LABS: Slide Review Reflex Yes
[2022-04-02 11:16] LABS: Slide Review Acceptable Review (Acceptable)
[2022-04-02] MEDS: ACETAMINOPHEN 325 MG TABLET 650 MG PO (11:17)
--- NOTE | 2022-04-02 13:43 | PC.NURSE ---
Discharge: Patient transferred to [facility] for higher level of care. BP soft, required bolus x2, totaling in 2,000cc IV fluid. patient alert and oriented, up independently. At start of shift had chills, temp WNL, T-max 100.2, received PRN tylenol @ 1118. MD updated on tachycardia and soft BP with temp, changed to CCU status. Patient transferred to [place] @ 1340 via EMS, nurse to nurse given to SILVANA Briggs.
--- NOTE | 2022-04-02 18:07 | PC.NURSE ---
Spoke with Zina (concert pianist) at [facility], informed of positive blood cultures (gram negative rods). She will notify their MD.
== END 2022-04-02 13:40 | disposition short-term general hospital (02) | DRG 720 ==
LOC: ED 05:29 → MEDSURG 05:57
PROVIDERS: Family Medicine; Admitting Provider Internal Medicine; Emergency Provider Family Medicine; PCP Surgery; Visit Provider Internal Medicine
DX: A41.9 Sepsis, unspecified organism (principal); I81 Portal vein thrombosis; N39.0 Urinary tract infection, site not specified; K76.6 Portal hypertension; I85.10 Secondary esophageal varices without bleeding; E86.0 Dehydration; B96.20 Unspecified Escherichia coli [E. coli] as the cause of diseases classified elsewhere; R16.1 Splenomegaly, not elsewhere classified; D72.819 Decreased white blood cell count, unspecified; F41.8 Other specified anxiety disorders; D69.59 Other secondary thrombocytopenia; K58.9 Irritable bowel syndrome, unspecified; K21.9 Gastro-esophageal reflux disease without esophagitis; E28.2 Polycystic ovarian syndrome
CPT/HCPCS: 36415; 80053; 81003; 81015; 85025; 85610; 86140; 86850; 86900; 86901; 87040; 87086; 87186; 87635; 99284; 99291; A9270; G0378; J0743; J2405; J7030; J7050; J7120

== ENCOUNTER 2022-04-02 13:27 | Outpatient (CLI) | payer BC, SELFPAY | END 2022-04-02 13:28 | disposition home or self-care (01) | LOC: AMB 04-05 15:42 | PROVIDERS: PCP Surgery; Visit Provider Family Medicine | DX: D69.6 Thrombocytopenia, unspecified (principal); D72.819 Decreased white blood cell count, unspecified; I85.00 Esophageal varices without bleeding; A41.9 Sepsis, unspecified organism; N39.0 Urinary tract infection, site not specified | CPT/HCPCS: A0425; A0427 ==

== ENCOUNTER 2022-05-19 17:20 | Emergency (ER) | payer BC, SELFPAY ==
[2022-05-19 17:37] VITALS: BP 97/63; PULSE 70; RESP 16; TEMP 36.6; O2SAT 99; BMI 30.2
--- NOTE | 2022-05-19 21:02 | ED.GENADULT ---
HPI - General Adult General Time Seen by Provider: 21:03 Date Seen: 05/19/22 Chief complaint: Extremity Pain/Injury, Lower Stated complaint: POSSIBLE BROKEN TOE-LEFT FOOT Time Seen by Provider: 05/19/22 21:00 Source: patient Mode of arrival: ambulatory Limitations: no limitations History of Present Illness HPI narrative: 21-year-old female who comes in with foot injury. Related Data Home Medications Medication Instructions Recorded Confirmed ferrous sulfate 325 mg (65 mg 325 mg PO DAILY 04/02/22 05/14/22 iron) tablet (Feosol) Allergies Allergy/AdvReac Type Severity Reaction Status Date / Time amoxicillin Allergy Verified 05/14/22 13:06 ibuprofen Allergy Verified 05/14/22 13:06 octreotide Allergy Hives Verified 05/14/22 13:06 sulfamethoxazole Allergy nausea Verified 05/14/22 13:06 [From vomiting Sulfamethoxazole-Trimethoprim] trimethoprim Allergy nausea Verified 05/14/22 13:06 [From vomiting Sulfamethoxazole-Trimethoprim] aspirin AdvReac Verified 05/14/22 13:06 Review of Systems Status of ROS: Reports: 10 or more systems reviewed and unremarkable except as noted in History and below [facility] Medical History Anemia Esophageal varices Hernia Thrombocytopenia Family History (Updated 04/02/22 @ 10:23 by Olivia Martin RN) Father DM (diabetes mellitus), type 2 Social History Highest level of school completed/degree received: high school graduate Smoking Status: Never smoker How often do you have a drink containing alcohol: monthly or less AUDIT-C Alcohol total score: 1 Non-prescribed substance use: denies use Caffeine: Yes service: No Exam Narrative: Exam Narrative: General: Well-developed and well-nourished, no acute distress Head: Atraumatic and normocephalic Eyes: Pupils are equal reactive, extraocular motions intact, conjunctiva clear ENT: External nose and ears are normal, posterior pharynx without erythema or exudate Neck: No midline cervical tenderness, full spontaneous range of motion the neck, trachea midline, no adenopathy Heart: Regular rate and rhythm no murmurs or thrills Lungs: Clear to auscultation bilaterally without wheezes or crackles Abdomen: Soft, nontender, nondistended with active bowel sounds Musculoskeletal: No tenderness, deformity, or edema Neurologic: Awake, alert, and oriented x3, no gross focal neurologic deficits, cranial nerves intact as tested Psych: Mood and affect are appropriate Skin: No rashes Const: Vital Signs, click to edit/add: Vital Signs - 24 hr 05/19/22 17:37 Temperature 97.9 F Pulse Rate [Pulse Oximeter] 70 Respiratory Rate 16 Blood Pressure [Le ft Upper Arm] 97/63 Pulse Oximetry 99 Oxygen Delivery Me thod Room Air Course Vital Signs Vital signs: Initial Vital Signs Temperature 97.9 F 05/19/22 17:37 Temperature Source Temporal Artery Scan 05/19/22 17:37 Pulse Rate 70 05/19/22 17:37 Respiratory Rate 16 05/19/22 17:37 Blood Pressure 97/63 05/19/22 17:37 Blood Pressure Mean 74 05/19/22 17:37 Blood Pressure Position Supine 05/19/22 17:37 Pulse Oximetry 99 05/19/22 17:37 Oxygen Delivery Method 05/19/22 17:37 Vital Signs Temperature 97.9 F 05/19/22 17:37 Pulse Rate 70 05/19/22 17:37 Respiratory Rate 16 05/19/22 17:37 Blood Pressure 97/63 05/19/22 17:37 Pulse Oximetry 99 05/19/22 17:37 Oxygen Delivery Method 05/19/22 17:37 Temperature 97.9 F 05/19/22 17:37 Pulse Rate 70 05/19/22 17:37 Respiratory Rate 16 05/19/22 17:37 Blood Pressure 97/63 05/19/22 17:37 Pulse Oximetry 99 05/19/22 17:37 Oxygen Delivery Method 05/19/22 17:37 Medical Decision Making Medical Records Medical records reviewed: Yes I reviewed the patient's medical records Lab Data Lab results reviewed: Yes I reviewed the patient's lab results Discharge Plan Discharge Prescriptions: No Action ferrous sulfate [Feosol] 325 mg (65 mg iron) tablet 325 mg PO DAILY Follow Up/Referrals: Kaleb Crawford MD [Primary Care Provider] -
--- OUTSIDE RECORDS SUMMARY | 2022-05-19 21:21 | XMS_ITS | Encounter Summary ---
:2000 Author Organization [facility] Address [address] [place] [address] Care Team Providers Name Role Phone Mohit Shelby MD Unavailable [facility] Primary Care Provider Reason for Referral Diagnostic Imaging MRI (Routine) - Closed Specialty Diagnoses / Procedures Referred By Contact Refer red To Contact Diagnoses Portal hypertension (H) Mohit Shelby MD Procedures MR Liver wo & w Contrast [address] [place] [address] Referral ID Status Reason Start Date Expiration Date Visits Requ ested Visits Authorized [id number] Closed 11/11/2021 11/11/2022 1 1 Encounter Details Date Type Department Care Team Description 11/11/2021 Orders Only [facility] Mohit Shelby MD Cavernous transformation of portal vein (Primary Dx); Hepatology Clinic [address] [place] [address] Portal hypertension (H) [id number] [place] [address] [phone] (Work) [phone] Social History Tobacco Use Types Packs/Day Years Used Date Smoking Tobacco: Never Smokeless Tobacco: Never Alcohol Use Standard Drinks/Week Comments Yes 0 (1 standard drink = 0.6 oz pure alcoho l) occassionally Sex Assigned at Date Recorded Female 07/10/2021 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 documented as of this encounter Plan of Treatment Not on filedocumented as of this encounter Results MR Liver wo & w Contrast (01/14/2022 12:51 PM CDT) Anatomical Region Laterality Modality Abdomen/Pelvis, SUBRAD MR BODY, UMP MR BODY, RAD MR Magnetic Resonance Specimen (Source) Anatomical Location Collection Method / Collectio n Time Received Time / Laterality Volume Impressions 01/15/2022 10:03 PM CDT IMPRESSION: 1. At least 6 lesions compatible with fo rajinder nodular hyperplasia the largest measuring up to 2.7 cm in hepati c segment 2. 2. 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 I have personally reviewed the examinati on and initial interpretation and I agree with the findings. GO MATTSON MD Narrative 01/15/2022 10:03 PM CDT MRI ABDOMEN CLINICAL HISTORY: ??Hepatic lesion seen upon CT abd, discussed in tumor conference, another lesion can be vaguel y seen upon CT, needs Eovist TECHNIQUE: ??Images were acquired with a nd without intravenous contrast through the abdomen. The following MR im ages were acquired: TrueFISP, multiplanar T2 weighted, axial T1 in/out of phase, axial fat-saturated T1, diffusion-weighted. Multiplanar T1-w eighted images with fat saturation were before contrast administ ration and at multiple time points following the administration of i ntravenous contrast. Contrast dose: 14mL Eovist FINDINGS: Comparison study: CT 10/16/2021. Ultrasou nd 07/22/2021. Liver: There are 2 lesions within hepati c segments 6 and 7 seen on images 11 and 16 of series 21. These les ions demonstrates T2 hyperintense scar centrally. The lesion in hepatic segment 7 measures 2.0 x 2.5 cm and the lesion in hepatic s egment 6 measures 2.0 x 2.2 cm. These lesions demonstrate avid arter ial enhancement and retention of contrast on hepatobiliary phase. Best seen on the 20 minute postcontrast sequence (series 25 and 28) there are at least 4 other lesions in he patic segment 1 (image 30 series 28), 2 (image 17 series 25), ??se gment 6/7 (image 24 series 25), and 8 (image 11 series 25). No significant signal dropout on out of phase imaging of the liver parenchyma. Gallbladder: Unremarkable. No filling de fect. Spleen: Enlarged measuring up to 20.1 cm . Numerous flow voids within the spleen. Kidneys: Punctate T2 hyperintense cyst i n the left superior renal pole. No renal mass or hydronephrosis. Adrenal glands: Unremarkable Pancreas: Homogenous T1 signal within th e pancreatic parenchyma. No ductal dilation or pancreatic mass. Bowel: No distention of the visualized s mall and large bowel. Normal wall thickening. Lymph nodes: No suspicious lymph nodes. 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 Splenorenal shunting. Lung bases: Clear Bones and soft tissues: No acute or susp icious osseous lesions. Mesentery and abdominal wall: Within nor mal limits. Ascites: No free fluid. Procedure Note Go Mattson MD - 01/15/2022 MRI ABDOMEN CLINICAL HISTORY: Hepatic lesion seen up on CT abd, discussed in tumor conference, another lesion can be vaguel y seen upon CT, needs Eovist TECHNIQUE: Images were acquired with and without intravenous contrast through the abdomen. The following MR im ages were acquired: TrueFISP, multiplanar T2 weighted, axial T1 in/out of phase, axial fat-saturated T1, diffusion-weighted. Multiplanar T1-w eighted images with fat saturation were before contrast administ ration and at multiple time points following the administration of i ntravenous contrast. Contrast dose: 14mL Eovist FINDINGS: Comparison study: CT 10/16/2021. Ultrasou nd 07/22/2021. Liver: There are 2 lesions within hepati c segments 6 and 7 seen on images 11 and 16 of series 21. These les ions demonstrates T2 hyperintense scar centrally. The lesion in hepatic segment 7 measures 2.0 x 2.5 cm and the lesion in hepatic s egment 6 measures 2.0 x 2.2 cm. These lesions demonstrate avid arter ial enhancement and retention of contrast on hepatobiliary phase. Best seen on the 20 minute postcontrast sequence (series 25 and 28) there are at least 4 other lesions in he patic segment 1 (image 30 series 28), 2 (image 17 series 25), segm ent 6/7 (image 24 series 25), and 8 (image 11 series 25). No significant signal dropout on out of phase imaging of the liver parenchyma. Gallbladder: Unremarkable. No filling de fect. Spleen: Enlarged measuring up to 20.1 cm . Numerous flow voids within the spleen. Kidneys: Punctate T2 hyperintense cyst i n the left superior renal pole. No renal mass or hydronephrosis. Adrenal glands: Unremarkable Pancreas: Homogenous T1 signal within th e pancreatic parenchyma. No ductal dilation or pancreatic mass. Bowel: No distention of the visualized s mall and large bowel. Normal wall thickening. Lymph nodes: No suspicious lymph nodes. 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 Splenorenal shunting. Lung bases: Clear Bones and soft tissues: No acute or susp icious osseous lesions. Mesentery and abdominal wall: Within nor mal limits. Ascites: No free fluid. IMPRESSION: 1. At least 6 lesions compatible with fo rajinder nodular hyperplasia the largest measuring up to 2.7 cm in hepati c segment 2. 2. 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 I have personally reviewed the examinati on and initial interpretation and I agree with the findings. 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
--- OUTSIDE RECORDS SUMMARY | 2022-05-19 21:21 | XMS_ITS | Encounter Summary ---
:2000 Author Organization [facility] Address [address] [place] [address] Care Team Providers Name Role Phone Unavailable Primary Care Provider Unavailable Reason for Referral Consultation (Routine) - Pending Review Specialty Diagnoses / Procedures Referred By Contact Refer red To Contact Medical Oncology Diagnoses Thrombocytopenia (H) Splenomegaly Generic External Data Department Referral ID Status Reason Start Date Expiration Date Visits V isits Requested Authorized [id number] Pending 06/25/2021 06/25/2022 1 1 Review NICAL SERVICE REPRESENTATIVE Encounter Details Date Type Department Care Team Description 06/25/2021 Transcribe Orders GENERIC EXTERNAL Provider, Thromb ocytopenia (H) (Primary Dx); DATA DEPARTMENT Generic Splenomegaly External Data Social History Tobacco Use Types Packs/Day Years Used Date Smoking Tobacco: Never Assessed Sex Assigned at Date Recorded Female 07/10/2021 7:57 AM TECHNICAL SERVICE REPRESENTATIVE documented as of this encounter Plan of Treatment Scheduled Referrals Name Type Priority Associated Diagnoses Order S chedule Oncology/Hematology Referral Routine Thrombocytop enia (H) Ordered: 06/25/2021 Adult Referral Splenomegaly documented as of this encounter Visit Diagnoses Diagnosis Thrombocytopenia (H) - Primary Thrombocytopenia, unspecified Splenomegaly documented in this encounter
--- OUTSIDE RECORDS SUMMARY | 2022-05-19 21:21 | XMS_ITS | Encounter Summary ---
:2000 Author Organization [facility] Address [address] [place] [address] Care Team Providers Name Role Phone Mohit Shelby MD Unavailable [facility] Primary Care Provider [phone] Reason for Referral Diagnostic Imaging MRI (Routine) - Pending Review Specialty Diagnoses / Procedures Referred By Contact Refer red To Contact Diagnoses Cavernous transformation of portal vein Mohit Shelby MD Procedures MR Liver wo & w Contrast [address] [place], [place] [address] Referral ID Status Reason Start Date Expiration Date Visits V isits Requested Authorized [id number] Pending 10/28/2021 10/28/2022 1 1 Review Encounter Details Date Type Department Care Team Description 10/28/2021 Orders Only [facility] Moiht Shelby MD Cavernous transformation Hepatology Clinic [address] of portal vein (Primary [place], [place] Dx) [address] [facility] [place] [address] [place], [place] [phone] (Work) [phone] Social History Tobacco Use Types Packs/Day Years Used Date Smoking Tobacco: Never Smokeless Tobacco: Never Alcohol Use Standard Drinks/Week Comments Yes 0 (1 standard drink = 0.6 oz pure alcoho l) occassionally Sex Assigned at Date Recorded Female 07/10/2021 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 documented as of this encounter Plan of Treatment Scheduled Orders Name Type Priority Associated Diagnoses Order S chedule MR Liver wo & w Imaging Routine Cavernous transformation of Expected: 04/30/2022 Contrast portal vein (Approximate), Expires: 2022 documented as of this encounter Visit Diagnoses Diagnosis Cavernous transformation of portal vein - Primary Unspecified circulatory system disorder documented in this encounter Additional Health Concerns Assessment Noted Time PHQ-9 Depression Total Score: 9 07/11/2021 7:34 AM SHOP TAILOR APPRENTICE documented as of this encounter Care Teams Cocktail Lounge Manager Relationship Specialty Start Date End Date Clinic, [facility] PCP - General 10/16/21 [address] [place] [phone] Mohit Shelby MD Fellow Gastroenterology 07/01/[address] [place] [address] documented as of this encounter
--- OUTSIDE RECORDS SUMMARY | 2022-05-19 21:21 | XMS_ITS | Encounter Summary ---
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
--- OUTSIDE RECORDS SUMMARY | 2022-05-19 21:21 | XMS_ITS | Encounter Summary ---
:2000 Author Organization [facility] Address [address] [place] [address] Care Team Providers Name Role Phone Mohit Shelby MD Unavailable [facility], [facility] Primary Care Provider Encounter Details Date Type Department Care Team Description 02/05/2022 Telephone [facility] Hepatology [place] [phone] Social History Tobacco Use Types Packs/Day Years Used Date Smoking Tobacco: Never Smokeless Tobacco: Never Alcohol Use Standard Drinks/Week Comments Yes 0 (1 standard drink = 0.6 oz pure alcoho l) occassionally Sex Assigned at Date Recorded Female 07/10/2021 7: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 documented as of this encounter Miscellaneous Notes Telephone Encounter - Ivone Peaec LPN - 02/05/2022 11:53 AM CDT ----- Message from Roly Nunez sent at 01/22/2022 12:48 PM CDT ----- Regarding: RE: F/u I LVM and sent out a [employer] message with scheduling info. ----- Message ----- From: Ivone Peace LPN Sent: 01/22/2022 11:57 AM CDT To: [id number] Subject: FW: F/u ----- Message ----- From: Mohit Shelby MD Sent: 01/22/2022 11:23 AM CDT To: Ivone Peace LPN Subject: F/u Arun Wiseman, Can we make a f/up for this pt in Apr/May with Dr. Lynne? Thanks Mohit documented in this encounter Plan of Treatment Not on filedocumented as of this encounter Visit Diagnoses Not on filedocumented in this encounter Additional Health Concerns Assessment Noted Time PHQ-9 Depression Total Score: 9 07/11/2021 7:34 AM WELL DRILL OPERATOR documented as of this encounter Care Teams Transplanter Relationship Specialty Start Date End Date Clinic, [facility] PCP - General 10/16/21 [address] [place] [phone] Mohit Shelby MD Fellow Gastroenterology 07/01/[address] [place] [address] documented as of this encounter
--- OUTSIDE RECORDS SUMMARY | 2022-05-19 21:21 | XMS_ITS | Encounter Summary ---
:2000 Author Organization [place] Address [address] [place] [address] Care Team Providers Name Role Phone Mohit Shelby MD Unavailable No Ref-Primary, Physician Primary Care Provider [phone] Reason for Referral Diagnostic Imaging CT Scan (Routine) - Pending Review Specialty Diagnoses / Procedures Referred By Contact Refer red To Contact Diagnoses Cavernous transformation of portal vein Mohit Shelby MD Procedures CT Liver wo & w Contrast [address] [place] [id number] Referral ID Status Reason Start Date Expiration Date Visits V isits Requested Authorized [id number] Pending 10/01/2021 10/01/2022 1 1 Review MAL CUTTING TRACER MACHINE OPERATOR Encounter Details Date Type Department Care Team Description 10/01/2021 Orders Only [facility] Mohit Shelby MD Cavernous transformation [facility]ology [facility] [address] [facility] of portal vein (Primary [place], [place] Dx) [address] [place] [address] [place], [place] [phone] (Work) [phone] Social History Tobacco Use Types Packs/Day Years Used Date Smoking Tobacco: Never Smokeless Tobacco: Never Alcohol Use Standard Drinks/Week Comments Yes 0 (1 standard drink = 0.6 oz pure alcoho l) occassionally Sex Assigned at Date Recorded Female 07/10/2021 7:57 AM 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 There is resultant marked splenomegaly a nd large collateral vessels. 2. ??Enhancing lesion in posterior right lobe of the liver, segment VII, may represent adenoma or focal nodu lar hyperplasia. Recommend follow-up with MRI in 6 months to confir m stability. LEA ZELAYA MD Narrative 10/16/2021 10:06 AM THERMAL CUTTING TRACER MACHINE OPERATOR CT LIVER WITHOUT AND WITH CONTRAST 10/16/2021 9:50 AM CLINICAL HISTORY: Mass like lesion in li ryland on abdomen ultrasound, needs triphasic CT to evaluate it better . Cavernous transformation of portal vein. TECHNIQUE: CT scan of the abdomen perfor med before and in multiple phases after injection of IV contrast. M ultiplanar reformats were obtained. Dose reduction techniques were used. CONTRAST: 73mL Isovue-370 COMPARISON: 07/22/2021. FINDINGS: LOWER CHEST: Normal. HEPATOBILIARY: Evaluation limited by poo r timing of the arterial phase images which were actually obtained duri ng the portal venous phase. In the posterior right lobe of the liver, t here is a heterogeneous 3.1 x 2.7 cm lesion that demonstrates enhancem ent in the portal venous phase (series 10, image 17). This lesion appea rs to be slightly hypodense on the precontrast images, slightly hypoden se on mildly delayed images, and isodense to the liver on 3 minute de layed images. No other focal liver lesions. Chronic portal vein throm bosis with cavernous transformation is noted. PANCREAS: Normal. SPLEEN: Marked splenomegaly, measuring 2 2.7 cm in length. There are large splenic venous collateral vessels. ADRENAL GLANDS: Normal. KIDNEYS/BLADDER: Normal. BOWEL: Normal. ADDITIONAL FINDINGS: No ascites. Retroao rtic left renal vein. MUSCULOSKELETAL: Normal. Procedure Note Lea Zelaya MD - 10/16/2021Forma tting of this note might be different from the original. CT LIVER WITHOUT AND WITH CONTRAST 3/10/ 2022 9:50 AM CLINICAL HISTORY: Mass like lesion in li ryland on abdomen ultrasound, needs triphasic CT to evaluate it better . Cavernous transformation of portal vein. TECHNIQUE: CT scan of the abdomen perfor med before and in multiple phases after injection of IV contrast. M ultiplanar reformats were obtained. Dose reduction techniques were used. CONTRAST: 73mL Isovue-370 COMPARISON: 07/22/2021. FINDINGS: LOWER CHEST: Normal. HEPATOBILIARY: Evaluation limited by poo r timing of the arterial phase images which were actually obtained duri ng the portal venous phase. In the posterior right lobe of the liver, t here is a heterogeneous 3.1 x 2.7 cm lesion that demonstrates enhancem ent in the portal venous phase (series 10, image 17). This lesion appea rs to be slightly hypodense on the precontrast images, slightly hypoden se on mildly delayed images, and isodense to the liver on 3 minute de layed images. No other focal liver lesions. Chronic portal vein throm bosis with cavernous transformation is noted. PANCREAS: Normal. SPLEEN: Marked splenomegaly, measuring 2 2.7 cm in length. There are large splenic venous collateral vessels. ADRENAL GLANDS: Normal. KIDNEYS/BLADDER: Normal. BOWEL: Normal. ADDITIONAL FINDINGS: No ascites. Retroao rtic left renal vein. MUSCULOSKELETAL: Normal. IMPRESSION: 1. Chronic portal vein thrombosis with c avernous transformation. There is resultant marked splenomegaly a nd large collateral vessels. 2. Enhancing lesion in posterior right l obe of the liver, segment VII, may represent adenoma or focal nodu lar hyperplasia. Recommend follow-up with MRI in 6 months to confir m stability. LEA ZELAYA MD Mohit Shelby MD IMG CT ORDERABLES documented in this encounter Visit Diagnoses Diagnosis Cavernous transformation of portal vein - Primary Unspecified circulatory system disorder Cavernous transformation of portal vein Unspecified circulatory system disorder documented in this encounter Additional Health Concerns Assessment Noted Time PHQ-9 Depression Total Score: 9 07/11/2021 7:34 AM THERMAL CUTTING TRACER MACHINE OPERATOR documented as of this encounter Care Teams Special Tax Auditor Relationship Specialty Start Date End Date No Ref-Primary, Physician PCP - General 07/01/21 10/15/21 Mohit Shelby MD Fellow Gastroenterology 07/01/[address] [place] [address] documented as of this encounter
--- OUTSIDE RECORDS SUMMARY | 2022-05-19 21:21 | XMS_ITS | Encounter Summary ---
:2000 Author Organization [place] Address [address] [place] [address] Care Team Providers Name Role Phone Mohit Shelby MD Unavailable No Ref-Primary, Physician Primary Care Provider [phone] Reason for Visit Reason Onset Date Comments Call to schedule test 10/13/[address] [facility] Encounter Details Date Type Department Care Team Description [facility] [address] [place] [address] (LVM to schedule CT [place], [place] WHIT) [address] [place] [address] [phone] (Work) [phone] Social History Tobacco Use Types Packs/Day Years Used Date Smoking Tobacco: Never Smokeless Tobacco: Never Alcohol Use Standard Drinks/Week Comments Yes 0 (1 standard drink = 0.6 oz pure alcoho l) occassionally Sex Assigned at Date Recorded Female 07/10/2021 7:57 AM VICE PRESIDENT FOR INSTRUCTION documented as of this encounter Plan of Treatment Not on filedocumented as of this encounter Visit Diagnoses Not on filedocumented in this encounter Additional Health Concerns Assessment Noted Time PHQ-9 Depression Total Score: 9 07/11/2021 7:34 AM VICE PRESIDENT FOR INSTRUCTION documented as of this encounter Care Teams Escort Vehicle Driver Relationship Specialty Start Date End Date No Ref-Primary, Physician PCP - General 07/01/21 10/15/21 Mohit Shelby MD Fellow Gastroenterology 07/01/[address] [place] [address] documented as of this encounter
--- OUTSIDE RECORDS SUMMARY | 2022-05-19 21:21 | XMS_ITS | Encounter Summary ---
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 documented as of this encounter Plan of Treatment Not on filedocumented as of this encounter Visit Diagnoses Not on filedocumented in this encounter Additional Health Concerns Assessment Noted Time PHQ-9 Depression Total Score: 9 07/11/2021 7:34 AM ARCHITECTURE FACULTY MEMBER documented as of this encounter Care Teams In Store Representative Relationship Specialty Start Date End Date No Ref-Primary, Physician PCP - General 07/01/21 10/15/21 Mohit Shelby MD Fellow Gastroenterology 07/01/[address] [place] [id number] documented as of this encounter
--- OUTSIDE RECORDS SUMMARY | 2022-05-19 21:21 | XMS_ITS | Encounter Summary ---
:2000 Author Organization [place] Address [address] [place] [address] Care Team Providers Name Role Phone Mohit Shelby MD Unavailable [facility] Primary Care Provider Reason for Referral Diagnostic Imaging CT Scan (Routine) - Pending Review Specialty Diagnoses / Procedures Referred By Contact Refer red To Contact Diagnoses Cavernous transformation of portal vein Mohit Shelby MD Procedures CT Liver wo & w Contrast [address] [place], [place] [address] Referral ID Status Reason Start Date Expiration Date Visits V isits Requested Authorized [id number] Pending 10/01/2021 10/01/2022 1 1 Review OR BOOKKEEPER Reason for Visit Diagnostic Imaging CT Scan (Routine) - Pending Review Specialty Diagnoses / Procedures Referred By Contact Refer red To Contact Diagnoses Cavernous transformation of portal vein Mohit Shelby MD Procedures CT Liver wo & w Contrast [address] [place], [place] [address] Referral ID Status Reason Start Date Expiration Date Visits V isits Requested Authorized [id number] Pending 10/01/2021 10/01/2022 1 1 Review Encounter Details Date Type Department Care Team Description 10/16/2021 Hospital Encounter [facility] None [facility] [place] [address] [place] [address] transformation of [address] [place] [address] Social History Tobacco Use Types Packs/Day Years Used Date Smoking Tobacco: Never Smokeless Tobacco: Never Alcohol Use Standard Drinks/Week Comments Yes 0 (1 standard drink = 0.6 oz pure alcoho l) occassionally Sex Assigned at Date Recorded Female 07/10/2021 7:57 AM SENIOR BOOKKEEPER COVID-19 Exposure Response Date Recorded In the last month, have you been in contact with No / Unsure 10/16/2021 8:45 AM SENIOR BOOKKEEPER someone who was confirmed or suspected to have Coronavirus / COVID-19? documented as of this encounter Medications at Time of Discharge Medication Sig Dispensed Refills Start Date End Date etonogestrel (NEXPLANON) Inject 1 each 0 04/07/20 21 68 MG IMPL Subcutaneous Ferrous Sulfate (IRON 0 PO) omeprazole (PRILOSEC Take 20 mg by mouth 0 2020 OTC) 20 MG EC tablet daily VITAMIN D, Take by mouth daily 0 CHOLECALCIFEROL, PO documented as of this encounter Plan of Treatment Not on filedocumented as of this encounter Procedures Procedure Name Priority Date/Time Associated Diagnosis Comme nts CT LIVER WO & W Routine 10/16/2021 9:50 AM Cavernous Result s for this CONTRAST SENIOR BOOKKEEPER transformation of procedure are in portal vein the results section. documented in this encounter Results CT Liver wo & w Contrast (10/16/2021 9:50 AM SENIOR BOOKKEEPER) Anatomical Region Laterality Modality Abdomen/Pelvis, SUBRAD CT BODY, UMP CT ABDOMEN PELVIS, Computed Tomography RAD CT Specimen (Source) Anatomical Location Collection Method / Collectio n Time Received Time / Laterality Volume Impressions 10/16/2021 10:06 AM SENIOR BOOKKEEPER IMPRESSION: 1. 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 There is resultant marked splenomegaly a nd large collateral vessels. 2. ??Enhancing lesion in posterior right lobe of the liver, segment VII, may represent adenoma or focal nodu lar hyperplasia. Recommend follow-up with MRI in 6 months to confir m sixto. LEA ZELAYA MD Narrative 10/16/2021 10:[address] LIVER WITHOUT AND WITH CONTRAST 10/16/2021 [...] original. CT LIVER WITHOUT AND WITH CONTRAST 2021 9:50 AM CLINICAL HISTORY: Mass like lesion [...] Diagnoses Diagnosis Cavernous transformation of portal vein Unspecified circulatory system disorder documented in this encounter Administered Medications Inactive Administered Medications - up to 3 most recent administrations Medication Order MAR Action Action Date Dose Rate Site CT SCAN FLUSH Given 10/16/2021 9:19 AM SENIOR BOOKKEEPER 65 mLs Intravenous, 100 mL, ONCE, On Deyanira 10/16/21 at 0930, For 1 dose, This entry is for use by Radiology to intermittently used as a flush in patients receiving a CT scan. iopamidol (ISOVUE-370) solution 500 mL Given 10/16/2021 9:19 AM SENIOR BOOKKEEPER 73 mLs 500 mL, Intravenous, ONCE, On Deyanira 10/16/21 at 0930, For 1 dose documented in this encounter Additional Health Concerns Assessment Noted Time PHQ-9 Depression Total Score: 9 07/11/2021 7:34 AM SENIOR BOOKKEEPER documented as of this encounter Care Teams Off Track Betting Manager Relationship Specialty Start Date End Date Clinic, [facility] PCP - General 10/16/21 [address] [place] [address] Mohit Shelby MD Fellow Gastroenterology 07/01/21 [address] [place] [address] documented as of this encounter
--- OUTSIDE RECORDS SUMMARY | 2022-05-19 21:21 | XMS_ITS | Encounter Summary ---
:2000 Author Organization [facility] Address [address] [place] [address] Care Team Providers Name Role Phone Mohit Shelby MD Unavailable No Ref-Primary, Physician Primary Care Provider [phone] Reason for Referral Consultation (Routine) - Pending Review Specialty Diagnoses / Procedures Referred By Contact Refer red To Contact Gastroenterology Diagnoses Portal vein thrombosis Mohit Shelby MD [address] [place], [place] [address] Referral ID Status Reason Start Date Expiration Date Visits V isits Requested Authorized [id number] Pending 07/10/2021 07/10/2022 1 1 Review Scheduling Instructions If EUS or ERCP is selected, it requires clinical review prior to scheduling. iagnostic Imaging Ultrasound (Routine) - Pending Review Specialty Diagnoses / Procedures Referred By Contact Refer red To Contact Diagnoses Portal vein thrombosis Mohit Shelby MD Procedures US Abdomen Complete w Doppler Complete [address] [place], [place] [address] Referral ID Status Reason Start Date Expiration Date Visits V isits Requested Authorized [id number] Pending 07/10/2021 07/10/2022 1 1 Review ITY SPECIALIST Reason for Visit Reason Comments New Patient Hypertension Consultation (Routine) - Pending Review Specialty Diagnoses / Procedures Referred By Contact Refer red To Contact Medical Oncology Diagnoses Thrombocytopenia (H) Splenomegaly Generic External Data Department Referral ID Status Reason Start Date Expiration Date Visits V isits Requested Authorized [id number] Pending 06/25/2021 06/25/2022 1 1 Review Encounter Details Date Type Department Care Team Description 07/10/2021 [facility] [address] [place] [phone] Portal vein thrombosis (Primary Dx); Hepatology Clinic Mohit Shelby MD [address] [place] [id number] Cavernous transformation of portal vein; [place] Splenomegaly; [address] [place] [address] Portal hypertension (H); [place], [place] PCOS (polycy stic ovarian syndrome) [id number] Social History Tobacco Use Types Packs/Day Years Used Date Smoking Tobacco: Never Smokeless Tobacco: Never Alcohol Use Standard Drinks/Week Comments Yes 0 (1 standard drink = 0.6 oz pure alcoho l) occassionally Sex Assigned at Date Recorded Female 07/10/2021 7:57 AM QUALITY SPECIALIST COVID-19 Exposure Response Date Recorded In the last month, have you been in contact with No / Unsure 07/10/2021 9:17 AM QUALITY SPECIALIST someone who was confirmed or suspected to have Coronavirus / COVID-19? documented as of this encounter Last Filed Vital Signs Vital Sign Reading Time Taken Comments Blood Pressure 116/77 07/10/2021 9:40 AM QUALITY SPECIALIST Pulse 105 07/10/2021 9:40 AM QUALITY SPECIALIST Temperature - - Respiratory Rate - - Oxygen Saturation 99% 07/10/2021 9:40 AM QUALITY SPECIALIST Inhaled Oxygen Concentration - - Weight 66.6 kg (146 lb 14.4 oz) 07/10/2021 9:40 AM QUALITY SPECIALIST Height - - Body Mass Index - - documented in this encounter Progress Notes Mohit Shelby MD - 07/10/2021 10:30 AM CST Date of Service: 07/10/2021 Referring Provider: Joyce Henderson MD Subjective: Nelly Soto is a 20 year old female presenting for evaluation of liver disease History of Present Illness Nelly Soto is a 20 year old female with past medical history of 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 Patient was accompanied by her mother who stated that patient was born in [place] with complicated delivery and umbilical cord issues, and since the age of 6 months she had been having throat infectionsalong with fever of unknown etiology. Over in [place] she was in a [place] with exposure to farm animals off and on when going to their farm house. Patient came to the [place] at the age of 21 years old. She had been vaccinated but had chickenpox at the age of 3 years. When she was 4, she came to the hospital with hematemesis, had ultrasound abdomen consistent with cavernous transformation in the portal vein along with splenomegaly. She underwent upper endoscopy witha gastric varix as well as 3 columns of esophageal varices which were banded. She underwent peripheral blood morphology showing hypochromic microcytic anemia, severe lymphopenia and mild thrombocytopenia, subsequently had bone marrow biopsy showing normocellular bone marrow. Prothrombin gene mutation and factor V Leyden were negative. Patient stated that she does not has any further complications regarding to her disease process, no jaundice, new rash or rectitis. She denies any hematochezia melena or hematemesis. Off-and-on she does has left upper quadrant abdominal pain and had recent hematology evaluation, has splenomegaly and was told the pain might secondary to it. She was advised to avoid contact sports and consultation for hepatology was placed during that visit. She had Covid infection last year in December 2019, now has been vaccinated. No smoking but drinks alcohol occasionally. She is on Nexplanon for control. She follows with PRODUCTION STATISTICAL CLERK regarding PCOS. She is planning to go back to college in the spring. Family history negative for liver disease in the family, no bleeding or clotting disorders. Social History: Social History Tobacco Use ??? Smoking status: Never Smoker ??? Smokeless tobacco: Never Used Substance Use Topics ??? Alcohol use: Yes Comment: occassionally ??? Drug use: Never Family History: No family history on file. Medications: Current Outpatient Medications Medication ??? etonogestrel (NEXPLANON) 68 MG IMPL ??? Ferrous Sulfate (IRON PO) ??? omeprazole (PRILOSEC OTC) 20 MG EC tablet ??? VITAMIN D, CHOLECALCIFEROL, PO No current facility-administered medications for this visit. Review of Systems A complete 10 point review of systems was asked and answered in the negative unless specifically commented upon in the HPI Objective: Vitals: 07/10/21 0940 BP: 116/77 Pulse: 105 SpO2: 99% Weight: 66.6 kg (146 lb 14.4 oz) There is no height or weight on file to calculate BMI. Physical Exam Constitutional: Well-developed, well-nourished, in no apparent distress. HEENT: Normocephalic. Noscleral icterus. Moist oral mucosa. Neck/Lymph: Normal ROM, supple. No thyromegaly. No lymphadenopathy Cardiac: Regular rate and rhythm. No overt murmurs Respiratory: Clear to auscultation bilaterally. No wheezes or rales GI: Abdomen soft, non-distended, non-tender. BS present. No shifting dullness. Skin: Skin is warm and dry. No rash noted. No jaundice. Peripheral Vascular: No lower extremity edema. 2+ pulses in all extremities Musculoskeletal: ROM intact. Psychiatric: Normal mood and affect. Behavior is normal. Neuro: No asterixis. Labs and Diagnostic tests: Procedures: EGD: 2004 1 gastric varix, 3 columns of EV s/p banding. 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 She did had cavernous transformation from PVT, resulting in portal hypertension and splenomegaly which is causing thrombocytopenia. Her condition might not result into long-term liver disease but would have thrombocytopenia due to splenomegaly. Patient has history of PCOS which in context with insulin resistance can cause fatty liver disease in the future. She was counseled regarding dietary intake as well as weight management in the upcoming years. Patient requires an ultrasound abdomen with Doppler to assess for portal vein flow as well as splenomegaly. She would also require endoscopy evaluation for follow-up on esophageal varices. We will get updated LFTs along with INR. -- US ABD with doppler -- EGD for EV surveillance -- Repeat LFTs and INR Routine Health Care in Patient with Chronic Liver Disease: - All patients with liver disease should avoid the use of Non-steroidal Anti- Inflammatory (NSAID) medications as they can cause significant injury to the kidneys in this population Follow Up: - in 1 year Pt was seen and discussed with Dr. Lynne. Thank you very much for the opportunity to participate in the care of this patient. If you have any further questions, please don't hesitate to contact our office. Mohit Shelby M.D. Advanced & Transplant Hepatology Fellow [facility] ITY SPECIALIST Associated attestation - Woo Lynne MD - 07/20/2021 5:12 PM QUALITY SPECIALIST The patient was seen and examined. The above assessment and plan was developed jointly with the fellow. Thank you very much for allowing me to participate in the care of this patient. If you have any questions regarding my recommendations, please do not hesitate to contact me. Woo Lynne MD supervisor meter shop [facility] [employer] Executive Facility Supervisor, Solid Organ Transplant Program [facility] documented in this encounter Plan of Treatment Scheduled Orders Name Type Priority Associated Diagnoses Order S chedule CBC with Platelets & Lab Panel Routine Portal vein thrombos is Expected: 07/10/2021 Differential (Approximate), Expires: 2021 Hepatic function panel Lab Routine Portal vein thromb osis Expected: 07/10/2021 (Approximate), Expires: 2021 INR Lab Routine Portal vein thrombosis Expec lonnie: 07/10/2021 (Approximate), Expires: 2021 Basic metabolic panel Lab Routine Portal vein thrombo sis Expected: 07/10/2021 (Approximate), Expires: 2021 Scheduled Referrals Name Type Priority Associated Diagnoses Order S chedule Adult Gastro Ref - Referral Routine: Next Portal vein Expected : Procedure Only available opening thrombosis 07/10/20 21 (Approximate), Expires: 07/10/2022 documented as of this encounter Results US Abdomen Complete w Doppler Complete (07/22/2021 10:40 AM QUALITY SPECIALIST) Anatomical Region Laterality Modality Abdomen/Pelvis, Vascular Ultrasound Specimen (Source) Anatomical Location Collection Method / Collectio n Time Received Time / Laterality Volume Impressions 07/22/2021 11:05 AM QUALITY SPECIALIST IMPRESSION: 1. Question of a masslike lesion in the right lobe of liver. Recommend CT for further evaluation. 2. Portal veins are not well seen. Retro grade flow in the splenic vein. GEM LACEY MD Narrative 07/22/2021 11:05 AM QUALITY SPECIALIST US ABDOMEN COMPLETE WITH DOPPLER COMPLETE ??07/22/2021 10:40 AM HISTORY: ??Portal vein thrombosis with c avernous transformation. COMPARISON: None. FINDINGS: Soft tissues: The pancreas is completely secured by ov erlying bowel gas. There is a question of a 2.7 x 2.2 cm ma sslike lesion in the right lobe of liver. The gallbladder wall is mildly thickened measuring 4 mm. There is no sonographic Perez sign. There are no ga llstones. The extrahepatic common bile duct measur es 4 mm in diameter which is within normal limits. The spleen is enlarged in size measuring 19.5 cm in length. The right kidney measures 9.7 cm in yariel th. There is mild prominence of the right renal pelvis. The left kidn ey measures 11.6 cm in length. It appears grossly unremarkable. Vascular examination: The visualized abdominal aorta and IVC a ppear grossly unremarkable. The hepatic veins are patent with flow a way from the liver. The hepatic artery is patent with a peak systolic velocity of 52 cm/s and resistance index of 0.63. The portal veins are not well seen. A small vessel at the barbi hepatis deemed to represent the extrahepatic main portal vein is patent with flow tow ards the liver. The splenic vein is patent with retrograde flow. Procedure Note Gem Lacey MD - 07/22/2021F ormatting of this note might be different from the original. US ABDOMEN COMPLETE WITH DOPPLER COMPLET E 07/22/2021 10:40 AM HISTORY: Portal vein thrombosis with cav ernous transformation. COMPARISON: None. FINDINGS: Soft tissues: The pancreas is completely secured by ov erlying bowel gas. There is a question of a 2.7 x 2.2 cm ma sslike lesion in the right lobe of liver. The gallbladder wall is mildly thickened measuring 4 mm. There is no sonographic Perez sign. There are no ga llstones. The extrahepatic common bile duct measur es 4 mm in diameter which is within normal limits. The spleen is enlarged in size measuring 19.5 cm in length. The right kidney measures 9.7 cm in yariel th. There is mild prominence of the right renal pelvis. The left kidn ey measures 11.6 cm in length. It appears grossly unremarkable. Vascular examination: The visualized abdominal aorta and IVC a ppear grossly unremarkable. The hepatic veins are patent with flow a way from the liver. The hepatic artery is patent with a peak systolic velocity of 52 cm/s and resistance index of 0.63. The portal veins are not well seen. A small vessel at the barbi hepatis deemed to represent the extrahepatic main portal vein is patent with flow tow ards the liver. The splenic vein is patent with retrograde flow. IMPRESSION: 1. Question of a masslike lesion in the right lobe of liver. Recommend CT for further evaluation. 2. Portal veins are not well seen. Retro grade flow in the splenic vein. GEM LACEY MD Woo Lynne MD [facility] ORDERABLES documented in this encounter Visit Diagnoses Diagnosis Portal vein thrombosis - Primary Cavernous transformation of portal vein Unspecified circulatory system disorder Splenomegaly Portal hypertension (H) Portal hypertension PCOS (polycystic ovarian syndrome) Polycystic ovaries Portal vein thrombosis documented in this encounter Additional Health Concerns Assessment Noted Time PHQ-9 Depression Total Score: 9 07/11/2021 7:34 AM QUALITY SPECIALIST documented as of this encounter Care Teams Senior Research Analyst Relationship Specialty Start Date End Date No Ref-Primary, Physician PCP - General 07/01/21 10/15/21 Mohit Shelby MD Fellow Gastroenterology 07/01/[address] [place] [address] documented as of this encounter
--- OUTSIDE RECORDS SUMMARY | 2022-05-19 21:21 | XMS_ITS | Encounter Summary ---
:2000 Author Organization [facility] Address [address] [place] [address] Care Team Providers Name Role Phone Mohit Shelby MD Unavailable [facility] Primary Care Provider [phone] Encounter Details Date Type Department Care Team Description 01/14/2022 Travel Social History Tobacco Use Types Packs/Day Years Used Date Smoking Tobacco: Never Smokeless Tobacco: Never Alcohol Use Standard Drinks/Week Comments Yes 0 (1 standard drink = 0.6 oz pure alcoho l) occassionally Sex Assigned at Date Recorded Female 07/10/2021 7:57 AM ENROLLMENT NURSE COVID-19 Exposure Response Date Recorded In the last 10 days, have you been in contact with No / Unsu re 01/14/2022 10:55 AM CDT someone who was confirmed or suspected to have Coronavirus/COVID-19? documented as of this encounter Plan of Treatment Not on filedocumented as of this encounter Visit Diagnoses Not on filedocumented in this encounter Additional Health Concerns Assessment Noted Time PHQ-9 Depression Total Score: 9 07/11/2021 7:34 AM ENROLLMENT NURSE documented as of this encounter Care Teams Web Production Designer Relationship Specialty Start Date End Date [facility] PCP - General 10/16/21 [address] [place] [address] Mohit Shelby MD Fellow Gastroenterology 07/01/21 [address] [place] [address] documented as of this encounter
--- OUTSIDE RECORDS SUMMARY | 2022-05-19 21:21 | XMS_ITS | Encounter Summary ---
:2000 Author Organization [facility] Address [address] [place] [address] Care Team Providers Name Role Phone Mohit Shelby MD Unavailable No Ref-Primary, Physician Primary Care Provider [phone] Reason for Visit Reason Onset Date Comments Previsit 07/10/2021 Encounter Details Date Type Department Care Team Description 07/10/2021 PRE VISIT [facility] Mohit Shelby MD Previsit Hepatology Clinic [address] [place] [address] [place] [address] [place] [phone] Social History Tobacco Use Types Packs/Day Years Used Date Smoking Tobacco: Never Smokeless Tobacco: Never Alcohol Use Standard Drinks/Week Comments Yes 0 (1 standard drink = 0.6 oz pure alcoho l) occassionally Sex Assigned at Date Recorded Female 07/10/2021 7:57 AM ROCK DUSTER documented as of this encounter Miscellaneous Notes Telephone Encounter - Juanita Fitch Kwame - 07/10/2021 8:41 AM CST RECORDS RECEIVED FROM: External Appt Date: 07.10.2021 NOTES STATUS DETAILS OFFICE NOTE from referring provider Received 06.24.2021 Joyce Henderson MD OFFICE NOTES from other specialists N/A DISCHARGE SUMMARY from hospital N/A MEDICATION LIST Received 06.24.2021 LIVER BIOSPY (IF APPLICABLE) PATHOLOGY REPORTS N/A IMAGING ENDOSCOPY (IF AVAILABLE) Received 06.26.2021 COLONOSCOPY (IF AVAILABLE) N/A ULTRASOUND LIVER Received 06.26.[address] OF ABDOMEN N/A MRI OF LIVER N/A FIBROSCAN, US ELASTOGRAPHY, FIBROSIS SCAN, MR ELASTOGRAPHY N/A LABS HEPATIC PANEL (LIVER PANEL) N/A BASIC METABOLIC PANEL Care Everywhere 06.21.2019 COMPLETE METABOLIC PANEL Care Everywhere 05.26.2021 COMPLETE BLOOD COUNT (CBC) Care Everywhere 05.26.2021 INTERNATIONAL NORMALIZED RATIO (INR) N/A HEPATITIS C ANTIBODY N/A HEPATITIS C VIRAL LOAD/PCR N/A HEPATITIS C GENOTYPE N/A HEPATITIS B SURFACE ANTIGEN N/A HEPATITIS B SURFACE ANTIBODY N/A HEPATITIS B DNA QUANT LEVEL N/A HEPATITIS B CORE ANTIBODY N/A DUSTER documented in this encounter Plan of Treatment Not on filedocumented as of this encounter Visit Diagnoses Not on filedocumented in this encounter Additional Health Concerns Assessment Noted Time PHQ-9 Depression Total Score: 9 07/11/2021 7:34 AM ROCK DUSTER documented as of this encounter Care Teams Chief Resource Officer Relationship Specialty Start Date End Date No Ref-Primary, Physician PCP - General 07/01/21 Mohit Shelby MD Fellow Gastroenterology 07/01/[address] [place] [address] documented as of this encounter
--- OUTSIDE RECORDS SUMMARY | 2022-05-19 21:21 | XMS_ITS | Encounter Summary ---
:2000 Author Organization [facility] Address [address] [place] [address] Care Team Providers Name Role Phone Mohit Shelby MD Unavailable No Ref-Primary, Physician Primary Care Provider [phone] Encounter Details Date Type Department Care Team Description 07/10/2021 Travel Social History Tobacco Use Types Packs/Day Years Used Date Smoking Tobacco: Never Smokeless Tobacco: Never Alcohol Use Standard Drinks/Week Comments Yes 0 (1 standard drink = 0.6 oz pure alcoho l) occassionally Sex Assigned at Date Recorded Female 07/10/2021 7:57 AM DRAMA TEACHER COVID-19 Exposure Response Date Recorded In the last month, have you been in contact with No / Unsure 07/10/2021 9:17 AM DRAMA TEACHER someone who was confirmed or suspected to have Coronavirus / COVID-19? documented as of this encounter Plan of Treatment Not on filedocumented as of this encounter Visit Diagnoses Not on filedocumented in this encounter Additional Health Concerns Assessment Noted Time PHQ-9 Depression Total Score: 9 07/11/2021 7:34 AM DRAMA TEACHER documented as of this encounter Care Teams Maintenance Of Way Foreman Relationship Specialty Start Date End Date No Ref-Primary, Physician PCP - General 07/01/21 10/15/21 Mohit Shelby MD Fellow Gastroenterology 07/01/[address] [place] [id number] documented as of this encounter
--- OUTSIDE RECORDS SUMMARY | 2022-05-19 21:21 | XMS_ITS | Clinical Summary ---
:2000 Author Organization [facility] Address [address] [place] [address] Care Team Providers Name Role Phone Mohit Shelby MD Unavailable [facility] Primary Care Provider [phone] Allergies Active Allergy Reactions Severity Noted Date Comments Aspirin Buffered Other (See Comments) 07/10/2021 Augmentin Rash Low 10/19/2006 Ibuprofen Other (See Comments) 04/12/2007 Other r eaction(s): Bleeding Octreotide Hives, Rash Low 07/10/2021 Other reaction( s): hives, rash Sulfamethoxazole-Trimet Nausea and Vomiting 10/19/2006 [facility] Medications Medication Sig Dispensed Refills Start Date End Date Status etonogestrel Inject 1 each 0 04/07/2021 Ac tive (NEXPLANON) 68 MG Subcutaneous IMPL omeprazole (PRILOSEC Take 20 mg by mouth 0 Active OTC) 20 MG EC tablet daily Ferrous Sulfate 0 Acti ve (IRON PO) VITAMIN D, Take by mouth daily 0 Active CHOLECALCIFEROL, PO Social History Tobacco Use Types Packs/Day Years Used Date Smoking Tobacco: Never Smokeless Tobacco: Never Alcohol Use Standard Drinks/Week Comments Yes 0 (1 standard drink = 0.6 oz pure alcoho l) occassionally Sex Assigned at Date Recorded Female 07/10/2021 7:57 AM ASSEMBLY MACHINE FEEDER Last Filed Vital Signs Vital Sign Reading Time Taken Comments Blood Pressure 116/77 07/10/2021 9:40 AM ASSEMBLY MACHINE FEEDER Pulse 105 07/10/2021 9:40 AM ASSEMBLY MACHINE FEEDER Temperature - - Respiratory Rate - - Oxygen Saturation 99% 07/10/2021 9:40 AM ASSEMBLY MACHINE FEEDER Inhaled Oxygen Concentration - - Weight 66.6 kg (146 lb 14.4 oz) 07/10/2021 9:40 AM ASSEMBLY MACHINE FEEDER Height - - Body Mass Index - - Plan of Treatment Health Maintenance Due Date Last Done Comments ADVANCE CARE PLANNING 1999 ANNUAL REVIEW OF HM ORDERS 1999 CHLAMYDIA SCREENING 1999 YEARLY PREVENTIVE VISIT 1999 HIV SCREENING 2014 HEPATITIS C SCREENING 2017 PAP 2020 COVID-19 Vaccine (3 - 06/06/2021 04/11/2021, 03/21/2021 Booster for Pfizer series) PHQ-2 (once per calendar 08/09/2021 07/10/2021, 07/10/2021 year) INFLUENZA VACCINE (#1) 2022 05/06/2020, 05/08/2019, 06/21/2018, Additional history exists DTAP/TDAP/TD IMMUNIZATION 03/04/2031 03/04/2021, 03/24/2011 , (8 - Td or Tdap) 05/20/2006, Additional history exists HPV IMMUNIZATION Completed 11/02/2013, 07/04/2013, 03/24/2011 MENINGITIS IMMUNIZATION Completed 10/15/2017, 03/24/2011 IPV IMMUNIZATION Aged Out 06/21/2018, 03/12/2000, No long er eligible 01/03/2000, Additional based on patient's age history exists to complete this topic HEPATITIS B IMMUNIZATION Completed 04/21/2021, 04/09/2017, 03/12/2000, Additional history exists Pneumococcal Vaccine: Aged Out No longer eligible Pediatrics (0 to 5 Years) based on patient's age and At-Risk Patients (6 to to co mplete this topic 64 Years) Insurance Payer Benefit Plan / Subscriber ID Effective Phone Address T ype Group Dates [employer] [id number] 2021-Trevor [phone] [address] [id number] [place] [phone] Care Teams Coordinate Measuring Machine Operator Relationship Specialty Start Date End Date Clinic, [facility] PCP - General 10/16/21 [address] [place] [address] Mohit Shelby MD Fellow Gastroenterology 07/01/21 [address] [place] [address]
--- OUTSIDE RECORDS SUMMARY | 2022-05-19 21:21 | XMS_ITS | Encounter Summary ---
:2000 Author Organization [place] Address [address] [place] [id number] Care Team Providers Name Role Phone Mohit Shelby MD Unavailable No Ref-Primary, Physician Primary Care Provider [phone] Reason for Referral Diagnostic Imaging Ultrasound (Routine) - Pending Review Specialty Diagnoses / Procedures Referred By Contact Refer red To Contact Diagnoses Portal vein thrombosis Mohit Shelyb MD Procedures US Abdomen Complete w Doppler Complete [address] [place], [place] [address] Referral ID Status Reason Start Date Expiration Date Visits V isits Requested Authorized [id number] Pending 07/10/2021 07/10/2022 1 1 Review [employer] Reason for Visit Diagnostic Imaging Ultrasound (Routine) - Pending Review Specialty Diagnoses / Procedures Referred By Contact Refer red To Contact Diagnoses Portal vein thrombosis Mohit Shelby MD Procedures US Abdomen Complete w Doppler Complete [address] [place] [place] [address] Referral ID Status Reason Start Date Expiration Date Visits V isits Requested Authorized [id number] Pending 07/10/2021 07/10/2022 1 1 Review Encounter Details Date Type Department Care Team Description 07/22/2021 Hospital Encounter [facility] [place] [facility] [place] Por tal vein [place] [facility] [address] [facility] [id number] [place] [address] [address] [place] [phone] Social History Tobacco Use Types Packs/Day Years Used Date Smoking Tobacco: Never Smokeless Tobacco: Never Alcohol Use Standard Drinks/Week Comments Yes 0 (1 standard drink = 0.6 oz pure alcoho l) occassionally Sex Assigned at Date Recorded Female 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 documented in this encounter Results US Abdomen Complete w Doppler Complete (07/22/2021 10:40 AM [employer]) Anatomical Region Laterality Modality Abdomen/Pelvis, Vascular Ultrasound Specimen (Source) Anatomical Location Collection Method / Collectio n Time Received Time / Laterality Volume Impressions 07/22/2021 11:05 AM [employer] IMPRESSION: 1. Question of a masslike lesion in the right lobe of liver. Recommend CT for further evaluation. 2. Portal veins are not well seen. Retro grade flow in the splenic vein. GEM LACEY MD Narrative 07/22/2021 11:05 AM [employer] US ABDOMEN COMPLETE WITH DOPPLER COMPLETE ??07/22/2021 [...] vein. GEM LACEY MD Woo Lynne MD [facility] ORDERABLES documented in this encounter Visit Diagnoses Diagnosis Portal vein thrombosis documented in this encounter Additional Health Concerns Assessment Noted Time PHQ-9 Depression Total Score: 9 07/11/2021 7:34 AM [employer] documented as of this encounter Care Teams Jewelry Coater Relationship Specialty Start Date End Date No Ref-Primary, Physician PCP - General 07/01/21 Mohit Shelby MD Fellow Gastroenterology 07/01/[address] [place] [phone] documented as of this encounter
--- OUTSIDE RECORDS SUMMARY | 2022-05-19 21:21 | XMS_ITS | Encounter Summary ---
:2000 Author Organization [place] Address [address] [place] [address] Care Team Providers Name Role Phone Mohit Shelby MD Unavailable [facility] Primary Care Provider Reason for Visit Diagnostic Imaging MRI (Routine) - Closed Specialty Diagnoses / Procedures Referred By Contact Refer red To Contact Diagnoses Portal hypertension (H) Mohit Shelby MD Procedures MR Liver wo & w Contrast [address] [place], [place] [address] Referral ID Status Reason Start Date Expiration Date Visits Requ ested Visits Authorized [id number] Closed 11/11/2021 11/11/2022 1 1 Encounter Details Date Type Department Care Team Description 01/14/[address] 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 documented as of this encounter Plan of Treatment Not on filedocumented as of this encounter Procedures Procedure Name Priority Date/Time Associated Diagnosis Comme nts MR LIVER W/O & W Routine 01/14/2022 12:51 Portal hypertension Results for this CONTRAST PM CDT (H) procedure are i n the results section. documented in this encounter Results MR Liver wo & [...] in this encounter Visit Diagnoses Diagnosis Portal hypertension (H) Portal hypertension documented in this encounter Administered Medications Inactive Administered Medications - up to 3 most recent administrations Medication Order MAR Action Action Date Dose Rate Site gadoxetate disodium (EOVIST) Given 01/14/2022 12:16 PM CDT 14 mL s injection 20 mL 20 mL, Intravenous, ONCE, On Wed01/14/22 at 1230, For 1 dose documented in this encounter Additional Health Concerns Assessment Noted Time PHQ-9 Depression Total Score: 9 07/11/2021 7:34 AM TORQUE TESTER documented as of this encounter Care Teams Supervisor Engine Assembly Relationship Specialty Start Date End Date Clinic, [facility] PCP - General 10/16/21 [address] [place] [address] Mohit Shelby MD Fellow Gastroenterology 07/01/[address] [place] [phone] documented as of this encounter
--- OUTSIDE RECORDS SUMMARY | 2022-05-19 21:21 | XMS_ITS | Encounter Summary ---
:2000 Author Organization [place] Address [address] [place] [address] Care Team Providers Name Role Phone Mohit Shelby MD Unavailable [facility] Primary Care Provider Reason for Visit Reason Onset Date Comments Clinic Care Coordination - Follow-up 01/22/2022 LVM to schedule f/u visit in Apr/May Encounter Details Date Type Department Care Team Description [facility] [address] [place] [address] - Follow-up ([facility] to [place], [place] schedule f/u visit in [address] [place] [address] Apr/May) [place], [place] [phone] [address] (Work) [phone] Social History Tobacco Use Types Packs/Day Years Used Date Smoking Tobacco: Never Smokeless Tobacco: Never Alcohol Use Standard Drinks/Week Comments Yes 0 (1 standard drink = 0.6 oz pure alcoho l) occassionally Sex Assigned at Date Recorded Female 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
--- OUTSIDE RECORDS SUMMARY | 2022-05-19 21:21 | XMS_ITS | Encounter Summary ---
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
--- OUTSIDE RECORDS SUMMARY | 2022-05-19 21:23 | XMS_ITS | Clinical Summary ---
:2000 Author Organization [facility] [place] [address] Care Team Providers Name Role Phone Lauryn Umana Primary Care Provider Unavailable Allergies Active Allergy Reactions Severity Noted Date Comments Aspirin, Buffered Bleeding 04/12/2007 Amoxicillin-Pot Rash 10/19/2006 Clavulanate Ibuprofen Bleeding 04/12/2007 Octreotide Other reaction( s): hives, rash Sulfamethoxazole-Trimeth Nausea And Vomiting 7 oprim Medications Medication Sig Dispensed Refills Start Date End Date Status multivitamin Take 1 tablet by 100 tablet 3 12/12/2010 Active (CHEWABLE MULTI mouth once daily. VITAMIN) Chew ferrous sulfate 325 Take 1 Tablet 0 11/18/2021 Active mg delayed release (325 mg) by mouth tablet once daily. lansoprazole Take 30 mg by 0 Act loyd (PREVACID) 30 mg mouth once daily capsule if needed for GI Upset or Heartburn. fluconazole Take 1 Tablet 2 Tablet 0 04/24/2022 04/24/2022 Ex pired (DIFLUCAN) 150 mg (150 mg) by mouth tabletIndications: one time for 1 Yeast vaginitis dose. If symptoms persistent after 72 hours, take the second tablet. 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 Plan: Pap due 02/2022 Hyperopic astigmatism of both eyes 09/05/2019 Hyperandrogenism 01/17/2019 Overview: Menarche at age 13. Cycles infrequent, H irsutism around age 17. No galactorrhea. Testosterone 151, 357 (2019), Estradiol 90, LH 12.4, FSH 3.6 (2018), Prolactin 17-32, 17 OHP 14, 11AM insulin level 54, 25 Pelvic ultrasound showed a number of fol licles, otherwise no mass. Rx Depo Provera x 3 (age 14). Oral contr aceptives (couldn't tolerate). Nexplanon started 12/2021: A1c 3.9%. Fasting glucose 77, I nsulin 21. Prolactin 16. SHBG 64 (24- 122). Testosterone high at 252 (10-55), Free Testosterone 5.15 (0.1-0.85). Androstenedione 678 (41-262 ng/dl). 17 OHP 144, Sleep disorder 12/25/2014 Unspecified constipation 08/29/2008 Thrombocytopenia, unspecified 01/27/2008 Anxiety state, unspecified 01/04/2007 Portal hypertension 10/19/2006 Overview: Dr Paul @ [facility]. 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 Rutherford Resolved Problems Problem Noted Date Resolved Date Irregular periods 10/25/2015 08/06/2020 Portal hypertension 03/11/2011 2011 Other and unspecified coagulation defects 10/19/2006 01/27/2008 Other and unspecified capillary diseases 10/19/2006 08/06/2020 Encounters Date Type Specialty Care Team Description 04/23/2022 Office Visit Noa Knowles, [facility] F/U (Yadira LOJA [facility] spital pylenephritis d od 04/04/2022); Va ginal Problem (Discha rge, itching) 04/23/2022 Travel 04/02/2022 Hospital Encounter Morena Worrell, DO 04/02/2022 - Hospital Encounter Woo Munoz, Py elonephritis (Primary Dx); 04/04/2022 DO Urinary tract infection without hematuri a, site unspecified; Tylor Klein, Sepsis, due to unspecified organism, unspecified whether acute organ dysfunction present (HC) Tc Olivares MD [facility] [place], [facility] Hospitalists Of Discharge Summary - Tc Woodson MD - 04/04/2022 7:00 AM CDT Images from the original not e were not included. HOSPITALIST DISCHARGE SUMMAR Y ? ? [facility] Admission Date: 04/02/2022 Discharge Date: 04/04/2022 Discharge Plan: Nelly Soto was discharged to home. Principal Diagnosis Pyelonephritis with E. coli bacteremia Hospital Problem List Principal Problem: Pyelonephritis Active Problems: Portal hypertension (HC) Esophageal varices with ble eding(456.0) Splenomegaly Thrombocytopenia, unspecifi ed Hyperandrogenism Gram-negative bacteremia Cavernous transformation of portal vein Focal nodular hyperplasia o f liver ADDITIONAL COMMENTS REGARDIN G DIAGNOSIS SPECIFICITY Additional Diagnosis Informa tion ?? Hospital Course Ms. Nelly Soto is a 21 y.o. female with a history of nodular hyperplasia of liver, esophageal varices, portal hypertension, cavernous transformation of portal vein who presented wi th fever, chills, aches. Pat claudia was seen in the local emergency department 03/31 for above complaints, work up was apparently unremarkable including urine. She was sent home with recommendations for tyl enol. Symptoms persisted and worsened so she presented to the local emergency department again this AM and found to have probable urinary tract infection so started on imipenem. Blood cultures returned positive for GNB so patient was transferred to [facility] for treatment of sepsis. She was treated here with ce ftriaxone and stabilized quite promptly. Her blood and urine culture from [place] were obtained and they did show pansensitive E. coli in both samples. Patient could be di scharged to complete a cours e of antibiotics (Keflex for 7 more days to complete a total 10-day course). Recommendations for Outpatie nt Provider ? ? PCP: Lauryn Umana Discharge Medications Your Home Medicines KEEP taking these medicines which have NOT changed and were NOT talked about during your hospital visit. If you have questions about these medicines, please make an appointment with your regular health care provider or specialist. Instructions ferrous sulfate 325 mg (65 m g iron) 325 mg EC tablet Take 1 Tablet (325 mg) by m outh once daily. lansoprazole 30 mg capsule Commonly known as: PREVACID Take 30 mg by mouth once da dharmesh if needed for GI Upset or Heartburn. multivitamin Chew Commonly known as: Chewable Multi Vitamin Take 1 tablet by mouth once daily. Pertinent Findings / Procedu res First weight: 72.6 kg (160 l b) (04/02/22 145) Last weight: 72.6 kg (160 lb) (04/02/22 145) Labs Renal Heme GI 04/02/22 1519 04/03/22 0605 SODIUM 141 139 POTASSIUM 3.6 3.5 CHLORIDE 114* 113* VP3SRDIN 18* 19* ANIONGAP 9 7 BUN 12 10 CREATININE 0.70 0.63 GLUCOSE 83 62* CALCIUM 7.2* 7.4* 04/02/22 1456 COLOR Yellow CLARITY Cloudy* SPECGRAV 1.015 PHURINE 7.5 UROBILINOGEN Increased* PROTEINUA Negative GLUCOSEUA Negative KETONESUA 15* BLOODUA Trace* NITRITE Negative LEUKOCYTE Moderate* RBCUA 6-10* WBCUA 11-25* BACTERIAUA Few EPITHELIALUA Few 04/02/22 1519 04/03/22 0605 WBC 4.3* 2.9* HGB 11.5* 11.5* HCT 33.9 33.9 MCV 89 89 MCH 30.1 30.3 MCHC 33.9 33.9 RDW 14.5 14.8 PLT 29* 29* Cardiopulmonary ID Endo COVID-19: Not on local file 04/02/22 151 PROCALCITONI 9.37* Micro Outside hospital blood cultu res GNB Outside hospital urine cultu re E coli Sensitivities pending on bot h as on 18:00 on 04/[address] Abdomen Pelvis w IV (Oral Contrast NO) 1. Likely chronically occlu ded portal vein with sequela of portal hypertension with recanalization of the umbilical vein. Numerous prominent venous collaterals throughout the upper abdomen, as well as massive splenomegaly. 2. Wedge-shaped area of hyp oenhancement within the inferior aspect of the spleen which is suspicious for infarct. 3. Patchy hypoenhancement w ithin the mid to upper pole of the right kidney which is concerning for pyelonephritis or infarct. 4. Small amount of nonspeci fic free fluid within the pelvis. Dictated by Emily Garner @ 04/02/2022 4:31:47 PM Consultants None Diet / Activity / Follow-Up Pending Studies Lab results that may not be resulted at time of discharge: (From admission through now) Start Ordered 04/04/22 0600 PLATELET COUN T TOMORROW AM, EARLY AM 04/03/22 1921 04/02/22 1500 BLOOD CULTURE Q1MIN, STAT Start Priority Status 04/02/22 1500 STAT Prelimina ry result Details 04/02/22 1505 STAT Prelimina ry result Details 04/02/22 1450 Total time spent on discharg e coordination: 35 minutes. Patient was seen and examined today. Tc Woodson MD Hospitalist, [facility] ? ? [phone] 04/02/2022 Travel from Last 3 Months Immunizations Name Administration Dates Next Due AMB Influenza, IIV3 (Age >=3 years) 06/11/2011 Preserve Free (Flu Clinic Only) AMB Influenza, IIV4 PF (=>6 mos 05/04/2014 Flulaval,Fluzone Fluarix)(Flu Clinic Only) BCG Vaccine (Percutaneous) 1999 COVID-19 vaccine ([employer] 03/21/2021 30mcg/0.3mL) PF, MDV DTaP 05/20/2006, 03/26/2005, 09/16/2001, 03/12/2000, 01/09/2000, 1999 Hep B (Hepatitis B (Adult) Recombinant 04/21/2021 Adjuvanted) Hepatitis A (Peds) 07/04/2013, 03/24/2011 Hepatitis B (Peds) 04/09/2017, 03/12/2000, 01/09/2000, 1999 Hib Conjugate, Unspecified 03/12/2000, 01/09/2000, 0 Human Papilloma Virus Vaccine 11/02/2013, 07/04/2013, 2010 Inactivated Polio Vaccine 06/21/2018, 03/12/2000, 01/03/2000 , 1999, 1999 Influenza A (H1N1), Inactivated (Age 1207/26/2009, 06/28/2009 >=3 Years) Influenza, IIV3 (Age >=3 years) 07/04/2013, 07/15/2012, 05/10, 05/11/2008, 06/14/2007, 05/20/2006 Influenza, IIV4 05/06/2020, 05/08/2019, 06/21/2018, 10/15/2017, 05/04/2014 MMR 05/20/2006, 03/26/2005, 09/14/2000 Meningococcal Vaccine (Menveo) 10/15/2017, 03/24/2011 Td (Age >=7 Years) 03/04/2021 Tdap 03/24/2011 Family History Medical History Relation Name Comments Good Health Father Good Health Mother Anesthesia Problem No Family History Diabetes No Family History Heart Disease No Family History Hypertension No Family History Relation Name Status Comments Father Mother Social History Tobacco Use Types Packs/Day Years Used Date Never Smoker Smokeless Tobacco: Never Used Tobacco Cessation: Counseling Given: Yes Comments: no exposure Alcohol Use Standard Drinks/Week Comments Not Currently 0 (1 standard drink = 0.6 oz pure alcoho l) rare Alcohol Habits Answer Date Recorded How often do you have a drink containing alcohol? Not asked How many drinks containing alcohol do you have on a typical Not asked day when you are drinking? How often do you have six or more drinks on one occasion? No t asked Comment: rare 08/15/2021 Sex Assigned at Date Recorded Not on file COVID-19 Exposure Response Date Recorded In the last 10 days, have you been in contact with No / Unsu re 04/23/2022 1:45 PM CDT someone who was confirmed or suspected to have Coronavirus/COVID-19? Obstetrics History Para Term AB IAB SAB Ectopic Multiple Living Live Births 0 0 0 0 0 0 0 0 0 0 0 Last Filed Vital Signs Vital Sign Reading Time Taken Comments Blood Pressure 110/70 04/23/2022 2:14 PM CDT Pulse 81 04/23/2022 2:14 PM CDT Temperature 37.4 ??C (99.3 ??F) 04/23/2022 2:14 PM CDT Respiratory Rate 16 04/04/2022 3:55 PM CDT Oxygen Saturation 98% 04/23/2022 2:14 PM CDT Inhaled Oxygen Concentration - - Weight 69.9 kg (154 lb) 04/23/2022 2:14 PM CDT Height 157.5 cm (5' 2) 04/02/2022 2:52 PM CDT Body Mass Index 28.17 04/02/2022 2:52 PM CDT Plan of Treatment Health Maintenance Due Date Last Done Comments COVID-19 vaccine series (3 - 06/06/2021 04/11/2021, 021 Booster for Pfizer series) Depression screening for age 12+ 08/06/2021 08/06/2020, 02/2020, 04/01/2020, Additional history exists Pap test for age 21-65 03/04/2022 03/04/2021, 03/04/2021 Influenza for age 9-49 04/09/2022 05/06/2020, 05/08/2019, 06/21/2018, Additional history exists BMI (ht and wt on same day) for 05/26/2022 05/26/2021, 08/0 10/2020, age 18+ 07/15/2020, Additional history exists Chlamydia for age 16-24 08/15/2022 08/15/2021, 04/07/2021, 03/04/2021, Additional history exists Tetanus booster 03/04/2031 03/04/2021, 03/24/2011 Tdap Completed 03/24/2011 HPV series for age 9-26 Completed 11/02/2013, 07/04/2013, 03/24/2011 Hepatitis C screening for age Completed 08/15/2021 18-79 Procedures Procedure Name Priority Date/Time Associated Comments Diagnosis TRICHOMONAS, JANET, Routine 04/23/2022 2:39 PM Vaginal disch arge Results for this AND BACTERIAL CDT procedure are in VAGINOSIS BY BRET the results section. SCAN 04/10/2022 12:00 Results for this CORRESP-LABORATORY AM CDT procedure are in RESULTS the results section. SCAN 04/10/2022 12:00 Results for this CORRESP-LABORATORY AM CDT procedure are in RESULTS the results section. PLATELET COUNT Early AM 04/04/2022 6:26 AM Results for this CDT procedure are i n the results section. CBC W PLT NO DIFF Early AM 04/03/2022 6:05 AM Resu lts for this CDT procedure are i n the results section. BASIC METABOLIC PANEL Early AM 04/03/2022 6:05 AM Results for this CDT procedure are i n the results section. CT ABDOMEN PELVIS W STAT 04/02/2022 3:56 PM Re sults for this CDT procedure are i n the results section. PLATELET ESTIMATE STAT 04/02/2022 3:19 PM Resu lts for this CDT procedure are i n the results section. LACTATE SCREEN VENOUS STAT 04/02/2022 3:19 PM Results for this ISTAT W FOX CDT procedure are i n the results section. PROCALCITONIN STAT 04/02/2022 3:19 PM Results for this CDT procedure are i n the results section. CBC W PLT NO DIFF STAT 04/02/2022 3:19 PM Resu lts for this CDT procedure are i n the results section. BASIC METABOLIC PANEL STAT 04/02/2022 3:19 PM Results for this CDT procedure are i n the results section. BLOOD CULTURE STAT 04/02/2022 3:09 PM Results for this CDT procedure are i n the results section. EXTRA TUBE FOX ON ICE STAT 04/02/2022 3:05 PM CDT ISTAT LACTATE SCREEN STAT 04/02/2022 3:05 PM R esults for this VENOUS CDT procedure are i n the results section. BLOOD CULTURE STAT 04/02/2022 3:04 PM Results for this CDT procedure are i n the results section. URINALYSIS MICROSCOPIC STAT 04/02/2022 2:56 PM Results for this CDT procedure are i n the results section. URINE WHIT 04/02/2022 2:56 PM Result s for this CDT procedure are i n the results section. URINE CULTURE STAT 04/02/2022 2:56 PM Results for this CDT procedure are i n the results section. UA W/ SEDIMENT EXAM STAT 04/02/2022 2:56 PM Re sults for this REFLEXED PER CRITERIA CDT proced ure are in the results section. from Last 3 Months Results (ABNORMAL) TRICHOMONAS, JANET, AND BACTERIAL VAGINOSIS BY BRET (04/23/2022 2:39 PM CDT) [facility] gist Method Time Signature JANET SPECIES Positive (A) Negative 04/24/2022 [facility] 1:09 AM CDT LABORATORY-CE NTRAL LABORATORY JANET Positive (A) Negative 04/24/2022 [facility] 1:09 AM CDT LABORATORY-CE NTRND LABORATORY TRICHOMONAS VVA Negative Negative 04/24/2022 [facility] 1:09 AM CDT LABORATORY-CE NTRND LABORATORY BACTERIAL Negative Negative 04/24/2022 [facility] VAGINOSIS 1:09 AM CDT LABORATORY-CE NTRND LABORATORY Specimen Anatomical Collection Method Collection Time Receive d Time (Source) Location / / Volume Laterality Other VAGINAL SWAB / Non-Blood / 04/23/2022 2:39 PM 022 2:51 Unknown Unknown CDT PM CDT Noa Knowles MD MICROBIOLOGY Performing Organization Address City/State/ZIP Code Phon e Number [facility] [address] [place] [address] LABORATORY-CENTRAL 2000 LABORATORY SCAN CORRESP-LABORATORY RESULTS (04/10/2022 12:00 AM CDT)Only the most recent of 2 resultswithin the time period is included. Narrative 04/10/2022 12:00 AM CDT This result has an attachment that is no t available. Ordered by an unspecified provider. Other Clinical Staff OTHER (ABNORMAL) PLATELET COUNT (04/04/2022 6:26 AM CDT) Analysis Performed At [facility] logist Time Signature PLATELET COUNT 33 (L) 140 - 440 04/04/2022 [facility] thou/cu mm 7:24 AM CDT LABORATORY-[facility] TRAL LABORATORY MPV 11.2 (H) 6.5 - 11.0 04/04/2022 [facility] fL 7:24 AM CDT LABORATORY-[facility] TRAL LABORATORY Specimen Anatomical Collection Method / Collection Time Recei ronni Time (Source) Location / Volume Laterality Blood BLOOD SPECIMEN / Venipuncture / 04/04/2022 6:26 2021 6:46 Unknown Unknown AM CDT AM CDT Tc Woodson MD HEMATOLOGY Performing Organization Address City/State/ZIP Code Phon e Number [facility] [employer] [employer] [address] [place] [address] LABORATORY-CENTRAL 2000 LABORATORY (ABNORMAL) CBC W Plt No Diff (04/03/2022 6:05 AM CDT)Only the most recent of2 resultswithin the time period is included. [facility] Method Time Signature WHITE BLOOD 2.9 (L) 4.5 - 11.0 04/03/2022 [facility] [employer] COUNT thou/cu mm 7:29 AM CDT LABORATORY-[facility] TRAL LABORATORY RED BLOOD COUNT 3.80 (L) 4.00 - 04/03/2022 [facility] [employer] 5.20 7:29 AM CDT LABORATORY-[facility] mil/cu mm TRAL LABORATORY HEMOGLOBIN 11.5 (L) 12.0 - 04/03/2022 [facility] [employer] 16.0 g/dL 7:29 AM CDT LABORATORY-[facility] TRAL LABORATORY HEMATOCRIT 33.9 33.0 - 04/03/2022 [facility] [employer] 51.0 % 7:29 AM CDT LABORATORY-[facility] TRAL LABORATORY MCV 89 80 - 100 04/03/2022 [facility] fL 7:29 AM CDT LABORATORY-[facility] TRAL LABORATORY MCH 30.3 26.0 - 04/03/2022 [facility] [employer] 34.0 pg 7:29 AM CDT LABORATORY-[facility] TRAL LABORATORY MCHC 33.9 32.0 - 04/03/2022 [facility] [employer] 36.0 g/dL 7:29 AM CDT LABORATORY-[facility] TRAL LABORATORY RDW 14.8 11.5 - 04/03/2022 [facility] [employer] 15.5 % 7:29 AM CDT LABORATORY-[facility] TRAL LABORATORY PLATELET COUNT 29 (L) 140 - 440 04/03/2022 [facility] [employer] thou/cu mm 7:29 AM CDT LABORATORY-[facility] TRAL LABORATORY MPV 12.7 (H) 6.5 - 11.0 04/03/2022 [facility] fL 7:29 AM CDT LABORATORY-[facility] TRAL LABORATORY NRBC 0.0 % 04/03/2022 [facility] 7:29 AM CDT LABORATORY-[facility] TRAL LABORATORY ABS NRBC 0.0 thou /cu 04/03/2022 [facility] [employer] mm 7:29 AM CDT LABORATORY-[facility] TRAL LABORATORY Specimen Anatomical Collection Method / Collection Time Recei ronni Time (Source) Location / Volume Laterality Blood BLOOD SPECIMEN / Venipuncture / 04/03/2022 6:05 2021 6:38 Unknown Unknown AM CDT AM CDT Tylor Klein MD HEMATOLOGY Performing Organization Address City/State/ZIP Code Phon e Number [facility] [address] [place] [address] LABORATORY-CENTRAL 2000 LABORATORY (ABNORMAL) Basic Metabolic Panel (04/03/2022 6:05 AM CDT)Only the most recent of 2 resultswithin the time period is included. Analysis Performed At [facility] logist Time Signature SODIUM 139 135 - 145 04/03/2022 [facility] mmol/L 7:44 AM CDT LABORATORY-[facility] TRAL LABORATORY POTASSIUM 3.5 3.5 - 5.0 04/03/2022 [facility] [employer] mmol/L 7:44 AM CDT LABORATORY-[facility] TRAL LABORATORY CHLORIDE 113 (H) 98 - 110 04/03/2022 [facility] [employer] mmol/L 7:44 AM CDT LABORATORY-[facility] TRAL LABORATORY CO2,TOTAL 19 (L) 21 - 31 04/03/2022 [facility] [employer] mmol/L 7:44 AM CDT LABORATORY-[facility] TRAL LABORATORY ANION GAP 7 5 - 18 04/03/2022 [facility] 7:44 AM CDT LABORATORY-[facility] TRAL LABORATORY GLUCOSE 62 (L) 65 - 100 04/03/2022 [facility] [employer] mg/dL 7:44 AM CDT LABORATORY-[facility] TRAL LABORATORY CALCIUM 7.4 (L) 8.5 - 10.5 04/03/2022 [facility] [employer] mg/dL 7:44 AM CDT LABORATORY-[facility] TRAL LABORATORY BUN 10 8 - 25 04/03/2022 [facility] [employer] mg/dL 7:44 AM CDT LABORATORY-[facility] TRAL LABORATORY CREATININE 0.63 0.57 - 04/03/2022 [facility] 1.11 mg/dL 7:44 AM CDT LABORATORY-[facility] TRAL LABORATORY BUN/CREAT RATIO 16 10 - 20 04/03/2022 [facility] 7:44 AM CDT LABORATORY-[facility] TRAL LABORATORY eGFR >90 >90 04/03/2022 [facility] mL/min/1.7 7:44 AM CDT LABORATORY-[facility] 3m2 TRAL LABORATORY Comment: As of 2021, eGFR is calcu lated by the CKD-EPI creatinine equation without race adjustment. eGFR can be inf luenced by muscle mass, exercise, and diet. The reported eGFR is an estimation only and is only applicable if the renal function is stable. Specimen Anatomical Collection Method / Collection Time Recei ronni Time (Source) Location / Volume Laterality Blood BLOOD SPECIMEN / Venipuncture / 04/03/2022 6:05 2021 6:38 Unknown Unknown AM CDT AM CDT Tylor Klein MD CHEMISTRY Performing Organization Address City/State/ZIP Code Phon e Number [facility] [address] [place] [address] LABORATORY-CENTRAL [address] Abdomen Pelvis w IV (Oral Contrast NO) (04/02/2022 3:56 PM CDT) Anatomical Region Laterality Modality Abdomen, Pelvis, AORTA, LIVER, SPLEEN Co mputed Tomography Specimen (Source) Anatomical Collection Method Collection Time Re ceived Time Location / / Volume Laterality 04/02/2022 4:31 PM CDT Addenda Addendum by Jason Morse MD o n 04/02/2022 4:40 PM CDT INDICATION: UTI, recurrent/complicated (Female) TECHNIQUE: CT abdomen and pelvis with 100 cc Omnipa que 350 IV contrast. COMPARISON: None. FINDINGS: The liver appears normal in size. Likely chronically occluded portal vein given recannulization of the umbilical v ein and numerous prominent venous collaterals throughout the mid to upper abdomen. This includes a prominent splenorenal shunt. Additionally, there i s massive splenomegaly measuring up to 25 cm. There is an area of hypoden sity within the inferior aspect of the spleen which may indicate splenic in farct. The adrenal glands and pancreas are within normal limits. Patch y hypo enhancement within the mid upper pole the right kidney which may in dicate pyelonephritis or infarct. No hydronephrosis. The bladder is mildly distended without wall thickening. Unremarkable gallbladder and biliary tree. No evidence of bowel obstruction. The ap pendix appears normal. No significant free air. Small amount of free fluid is noted within the pelvis. Pelvic organs are unremarkable. Bibasilar subpleural reticulation likely representing atelectasis. IMPRESSION: 1. Likely chronically occluded portal ve in with sequela of portal hypertension with recanalization of the umbilical vein. Numerous prominent venous collaterals throughout the upper abdomen, as well as massive splenomegaly. 2. Wedge-shaped area of hypoenhancement within the inferior aspect of the spleen which is suspicious for infarct. 3. Patchy hypoenhancement within the mid to upper pole of the right kidney which is concerning for pyelonephritis o r infarct. 4. Small amount of nonspecific free flui d within the pelvis. Please note that all CT scans at [facility] use dose modulation, iterative reconstruction, and/or weight- based dosing when appropriate to reduce radiation dose to as low as reaso nably achievable. Dictated by Jason Morse MD @ 04/02/2022 4:31:47 PM ----- ADDENDUM ----- Findings were discussed with Dr. Woo inman at 4:33 p.m. ?? 04/02/2022. Dictated by Jason Morse MD @ Apr 02 ??4:37PM (Electronically Signed) Impressions 04/02/2022 4:31 PM CDT 1. Likely chronically occluded portal vein with sequela of portal hypertension with recanalization of the umbilical vein. Numerous prominent venous collaterals throughout the upper abdomen, as well as massive splenomegaly. 2. Wedge-shaped area of hypoenhancement within the inferior aspect of the spleen which is suspicious for infarct. 3. Patchy hypoenhancement within the mid to upper pole of the right kidney which is concerning for pyelonephritis or infarct. 4. Small amount of nonspecific free flui d within the pelvis. Please note that all CT scans at this [facility] use dose modulation, iterative reconstruction, and/or weight-based dosing when appropriate to reduce radiation dose to as low as reasonably achievable. Dictated by Jason Morse MD @ 04/02/2022 4:31:47 PM (Electronically Signed) Narrative 04/02/2022 4:31 PM CDT For Patients: ??As a result of the Century Cures Act, medical imaging exams and procedure report s are released immediately into your [facility] medical record. ??You may view this report before your referring provider. ??If you have questions, please contact your health care provider. INDICATION: UTI, recurrent/complicated (Female) TECHNIQUE: CT abdomen and pelvis with 100 cc Omnipa que 350 IV contrast. COMPARISON: None. FINDINGS: The liver appears normal in size. Likely chronically occluded portal vein given recannulization of the umbilical vein and numerous prominent venous collaterals throughout the mid to upper abdomen. This includes a prominent splenorenal shunt. Additionally, there is massive splenomegaly measuring up to 25 cm. There is an area of hypodensity within the inferior aspect of the spleen which may indicate spl enic infarct. The adrenal glands and madrid creas are within normal limits. Patchy hypo enhancement within the mid upper pole the right kidney which may indicate pyelonephritis or infarct. No hydronephrosis . The bladder is mildly distended withou t wall thickening. Unremarkable gallbladder and biliary tree. No evidence of bowel obstruction. The ap pendix appears normal. No significant free air. Small amount of free fluid is noted within the pelvis. Pelvic organs are unremarkable. Bibasilar subpleural reticulation likely representing atelectasis. Procedure Note Jason Morse MD - 04/02/2022F ormatting of this note might be different from the original. For Patients: As a result of the ntury Cures Act, medical imaging exams and procedure reports are released immediately into your electronic medical record. You may view this report before your referring provider. If you have questions, please contact [facility] care provider. INDICATION: UTI, recurrent/complicated (Female) TECHNIQUE: CT abdomen and pelvis with 100 cc Omnipa que 350 IV contrast. COMPARISON: None. FINDINGS: The liver appears normal in size. Likely chronically occluded portal vein given recannulization of the umbilical vein and numerous prominent venous collaterals throughout the mid to upper abdomen. This includes a prominent splenorenal shunt. Additionally, there i s massive splenomegaly measuring up to 25 cm. There is an area of hypodensity within the inferior aspect of the spleen which may indicate splenic infarct. The adrenal glands and pancreas are within normal limits. Patch y hypo enhancement within the mid upper pole the right kidney which may indicate pyelonephritis or infarct. No hydronephrosis. The bladder is mildly distended without wall thickening. Unremarkable gallbladder and biliary tree. No evidence of bowel obstruction. The ap pendix appears normal. No significant free air. Small amount of free fluid is noted within the pelvis. Pelvic organs are unremarkable. Bibasilar subpleural reticulation likely representing atelectasis. IMPRESSION: 1. Likely chronically occluded portal ve in with sequela of portal hypertension with recanalization of the umbilical vein. Numerous prominent venous collaterals throughout the upper abdomen, as well as massive splenomegaly. 2. Wedge-shaped area of hypoenhancement within the inferior aspect of the spleen which is suspicious for infarct. 3. Patchy hypoenhancement within the mid to upper pole of the right kidney which is concerning for pyelonephritis or infarct. 4. Small amount of nonspecific free flui d within the pelvis. Please note that all CT scans at this [facility] use dose modulation, iterative reconstruction, and/or weight-based dosing when appropriate to reduce radiation dose to as low as reasonably achievable. Dictated by Jason Morse MD @ 04/02/2022 4:31:47 PM (Electronically Signed) Woo Munoz DO CT LACTATE SCREEN VENOUS ISTAT W FOX (04/02/2022 3:19 PM CDT) athologist Signature LACTATE VENOUS <1.8 <=2.0 04/02/2022 [employer] [facility] | [employer] SCREEN ISTAT 3:33 PM CDT LABORATORY-CENT [facility] LABORATORY LACTATE SCREEN 1.0 <=2.0 04/02/2022 [employer] [facility] | [employer] VENOUS POCT 3:33 PM CDT LABORATORY-CENT [facility] LABORATORY Specimen Anatomical Collection Method Collection Time Receive d Time (Source) Location / / Volume Laterality Blood BLOOD SPECIMEN / 04/02/2022 3:19 PM 04/02 3:33 Unknown CDT PM CDT Woo Munoz DO LABORATORY Performing Organization Address City/State/ZIP Code Phon e Number [facility] [address] [place] [address] LABORATORY-CENTRAL 1999 LABORATORY (ABNORMAL) PLATELET ESTIMATE (04/02/2022 3:19 PM CDT) [facility] gist Method Time Signature PLATELET Decreased (A) Adequate, No 04/02/2022 [facility] estimate 4:45 PM CDT LABORATORY-CE NTRAL LABORATORY Specimen Anatomical Collection Method / Collection Time Recei ronni Time (Source) Location / Volume Laterality Blood BLOOD SPECIMEN / Non-Lab 04/02/2022 3:19 04/02/20 3:19 Unknown Venipuncture / PM CDT PM CDT Unknown Andrew Munoz DO HEMATOLOGY Performing Organization Address City/State/ZIP Code Phon e Number [facility] [address] [place] [address] LABORATORY-CENTRAL 2000 LABORATORY (ABNORMAL) PROCALCITONIN (04/02/2022 3:19 PM CDT) Analysis Performed At Patho logist Time Signature PROCALCITONIN 9.37 (H) <0.50 04/02/2022 [facility] ng/ml 4:24 PM CDT LABORATORY-MOISES TRAL LABORATORY Specimen Anatomical Collection Method / Collection Time Recei ronni Time (Source) Location / Volume Laterality Blood BLOOD SPECIMEN / Non-Lab 04/02/2022 3:19 04/02/20 22 3:20 Unknown Venipuncture / PM CDT PM CDT Unknown Narrative [facility] LABORATORY-CENTRAL LABORAT ORY - 04/02/2022 4:24 PM CDT Procalcitonin for initial assessment of Lower Respiratory Tract Infection: Results Interpretation <0.1 ng/mL ?Antibiotics strong ly discouraged.* 0.1 - 0.25 ng/mL ??Antibiotics discourag ed. * 0.26 - 0.50 ng/mL Antibiotics encouraged . >0.50 ng/mL ? Antibiotics strongl y encouraged. *If suspicion of infection high, clinica lly unstable, or immunosuppressed: initiate antibiotics. Repeat PCT testing in 6-24 hours. Repeat PCT testing every 1-2 days whil e on antibiotics to assess response to therapy. Procalcitonin for initial assessment of severe sepsis risk: Results Interpretation < 0.5 ng/mL Associated with a low risk f or progression to severe sepsis/septic shock. > 2.0 ng/mL Associated with a high risk for progression to severe sepsis/septic shock. Note: PCT levels below 0.5 ng/mL do not exclude an infection, because localized infections may also be associated with such low levels. If the PCT measurement is done very early after the systemic infec tion process has started (usually <6 jo rs), these values may still be low. PCT levels between 0.5 ng/mL and 2.0 ng/ mL should be interpreted in the context of the specific clinical background and conditions of the individual patient. It is recommended to re-test PCT within 6-24 hours if any concentrations <2.0 ng/mL are obtained. Woo Munoz DO SEND OUTS Performing Organization Address [facility] Phon e Number [facility] [address] [place] [address] LABORATORY-CENTRAL 1999 LABORATORY BLOOD CULTURE (04/02/2022 3:09 PM CDT)Only the most recent of2 resultswithin the time period is included. P athologist Signature CULTURE No Growth. 04/07/2022 [facility] 3:54 PM CDT LABORATORY-CENT RAL LABORATORY Specimen Anatomical Collection Method / Collection Time Recei ronni Time (Source) Location / Volume Laterality Blood BLOOD SPECIMEN / Venipuncture / 04/02/2022 3:09 2021 3:20 Unknown Unknown PM CDT PM CDT Narrative [facility] LABORATORY-CENTRAL LABORAT ORY - 04/07/2022 3:54 PM CDT Low volume blood culture received; possi ble false negative culture. Woo Munoz DO MICROBIOLOGY Performing Organization Address [facility] Phon e Number [facility] [address] [place] [address] LABORATORY-CENTRAL 1999 LABORATORY EXTRA TUBE FOX ON ICE (04/02/2022 3:05 PM CDT) Specimen Anatomical Collection Method / Collection Time Recei ronni Time (Source) Location / Volume Laterality Blood BLOOD SPECIMEN / Venipuncture / 04/02/2022 3:05 2021 3:22 Unknown Unknown PM CDT PM CDT Woo Munoz DO LABORATORY Performing Organization Address [facility] Phon e Number [facility] [address] [place] [address] LABORATORY-CENTRAL 1999 LABORATORY (ABNORMAL) URINALYSIS MICROSCOPIC (04/02/2022 2:56 PM CDT) Patholo gist Method Time Signature RBC 6-10 (A) 0-2, None 04/02/2022 [facility] Seen /HPF 3:44 PM CDT LABORATORY-MOISES TRAL LABORATORY WBC 11-25 (A) 0-2, 3-5, 04/02/2022 [facility] None Seen 3:44 PM CDT LABORATORY-[facility] /HPF TRAL LABORATORY BACTERIA Few None 04/02/2022 [facility] Seen, 3:44 PM CDT LABORATORY-MOISES Rare, Few TRAL Bacteria/ LABORATORY HPF EPITHELIAL Few None 04/02/2022 [facility] [employer] CELLS Seen, Few 3:44 PM CDT LABORATORY-[place] Epi/HPF TRAL LABORATORY Specimen Anatomical Collection Method Collection Time Receive d Time (Source) Location / / Volume Laterality Urine URINE SPECIMEN / Non-Blood / 04/02/2022 2:56 PM 04/02 3:06 Unknown Unknown CDT PM CDT Woo Munoz DO URINE Performing Organization Address City/[facility] Hospital/ZIP Code Phon e Number [facility] [address] [place] [address] LABORATORY-CENTRAL 2000 LABORATORY URINE CULTURE (04/02/2022 2:56 PM CDT) athologist Signature CULTURE No growth 04/03/2022 [facility] [employer] (<1,000 1:13 PM CDT LABORATORY-CENT CFU/mL) RAL LABORATORY Specimen Anatomical Collection Method Collection Time Receive d Time (Source) Location / / Volume Laterality Urine URINE SPECIMEN / Non-Blood / 04/02/2022 2:56 PM 04/02 3:06 Unknown Unknown CDT PM CDT Woo Munoz DO MICROBIOLOGY Performing Organization Address City/[facility] Hospital/ZIP Code Phon e Number [facility] [address] [place] [address] LABORATORY-CENTRAL 1999 LABORATORY (ABNORMAL) URINALYSIS W REFLEX MICROSCOPIC IF POSITIVE (04/02/2022 2:56 PM CDT) [facility] Method Time Signature COLOR Yellow Yellow Color 04/02/2022 [facility] [employer] 3:44 PM CDT LABORATORY-CE NTRAL LABORATORY CLARITY Cloudy (A) Clear 04/02/2022 [facility] [employer] Clarity 3:44 PM CDT LABORATORY-CE NTRAL LABORATORY SPECIFIC 1.015 1.010, 04/02/2022 [facility] [employer] GRAVITY,URINE 1.015, 3:44 PM CDT LABORATORY-CE 1.020, 1.025 NTRAL LABORATORY PH,URINE 7.5 6.0, 7.0, 04/02/2022 [facility] [employer] 8.0, 5.5, 3:44 PM CDT LABORATORY-CE 6.5, 7.5, NTRAL 8.5 LABORATORY UROBILINOGEN, Increased (A) Normal EU/dl 04/02/2022 [facility] 3:44 PM CDT LABORATORY-CE NTRAL LABORATORY PROTEIN, Negative Negative 04/02/2022 [facility] URINE mg/dL 3:44 PM CDT LABORATORY-CE NTRAL LABORATORY GLUCOSE, Negative Negative 04/02/2022 [facility] [employer] URINE mg/dL 3:44 PM CDT LABORATORY-CE NTRAL LABORATORY KETONES,URINE 15 (A) Negative 04/02/2022 [facility] mg/dL 3:44 PM CDT LABORATORY-CE NTRAL LABORATORY BILIRUBIN,URI Negative Negative 04/02/2022 [facility] [employer] NE 3:44 PM CDT LABORATORY-CE NTRAL LABORATORY OCCULT Trace (A) Negative 04/02/2022 [facility] | [employer] BLOOD,URINE 3:44 PM CDT LABORATORY-CE NTRAL LABORATORY NITRITE Negative Negative 04/02/2022 [facility] 3:44 PM CDT LABORATORY-CE NTRAL LABORATORY LEUKOCYTE Moderate (A) Negative 04/02/2022 [facility] [employer] ESTERASE 3:44 PM CDT LABORATORY-CE NTRAL LABORATORY Specimen Anatomical Collection Method Collection Time Receive d Time (Source) Location / / Volume Laterality Urine URINE SPECIMEN / Non-Blood / 04/02/2022 2:56 PM 04/02 3:06 Unknown Unknown CDT PM CDT Woo Munoz DO URINE Performing Organization Address City/State/[facility] Code Phon e Number [facility] [address] [place] [address] [place] [address] LABORATORY-CENTRAL 2000 LABORATORY URINE (04/02/2022 2:56 PM CDT) Analysis Performed At Patho logist Time Signature ,URIN Negative Negative 04/02/2022 [facility] | [employer] E 3:37 PM CDT LABORATORY-MOISES TRAL LABORATORY Specimen Anatomical Collection Method Collection Time Receive d Time (Source) Location / / Volume Laterality Urine URINE SPECIMEN / Non-Blood / 04/02/2022 2:56 PM 04/02 3:06 Unknown Unknown CDT PM CDT Woo Munoz DO URINE Performing Organization Address City/[facility] Phon e Number [facility] [address] [place], [place] [address] [place] [address] LABORATORY-CENTRAL 2000 LABORATORY from Last 3 Months Insurance Payer Benefit Plan / Subscriber ID Effective Dates Phone Addre ss Type Group [employer] OF [id number] 2022-Present [address] [address] [place] [address] PREFERRED [employer] [id number] 2019-Present [id number] NEELAM SOARES [phone] [place] [phone] ALEJO JARA [facility]/[place]onal[place] Employer 08/09/2000 [address] [facility] [employer] ([place]) [place] [address] Advance Directives Latest Code Status on File Code Status Date Activated Date Inactivated Comments Full Code 04/02/2022 6:03 PM 04/04/2022 8:06 PM Code Status Discussion: Reviewed Preferences Care Teams Banker Mason Relationship Specialty Start Date End Date Lauryn Umana PCP - General 11/18/21"
--- NOTE | 2022-05-20 01:35 | ED.NURSE ---
patient left from lobby, refusal of services signed by registration desk.
== END 2022-05-19 21:19 | disposition left against medical advice (07) ==
PROVIDERS: PCP Surgery
DX: Z53.21 Procedure and treatment not carried out due to patient leaving prior to being seen by health care provider (principal)
CPT/HCPCS: 99281

== ENCOUNTER 2022-07-12 08:28 | Emergency (ER) | payer BC, SELFPAY ==
[2022-07-12 08:37] VITALS: BP 119/52; PULSE 91; RESP 18; TEMP 36.9; O2SAT 98; BMI 28.3
--- NOTE | 2022-07-12 08:37 | ED_ITS ---
HPI - General Adult General Time Seen by Provider: 08:38 Date Seen: 07/12/22 Chief complaint: Nausea/Vomiting Stated complaint: Vertigo, vomiting Time Seen by Provider: 07/12/22 08:29 Source: patient Mode of arrival: ambulatory Limitations: no limitations History of Present Illness HPI narrative: Patient is a 21-year-old female presents to the ED with dizziness and vomiting for the last few hours. She had a flu-like illness last few days, that seems to be better but today felt dizzy and nauseated vomited a few times. She reports she has irregular periods, she has anemia from probably heavy periods, and she thinks when asked if she might be ?probably?. Patient denies vaginal bleeding abdominal pain bowel or bladder changes, chest pain, headache. No trauma or injury reported Related Data Home Medications Medication Instructions Recorded Confirmed ferrous sulfate 325 mg (65 mg 325 mg PO DAILY 04/02/22 06/24/22 iron) tablet (Feosol) multivitamin (Multiple Vitamins 1 tab PO QDAY 06/24/22 06/24/22 tablet) Allergies Allergy/AdvReac Type Severity Reaction Status Date / Time amoxicillin Allergy Verified 06/24/22 11:47 ibuprofen Allergy Verified 06/24/22 11:47 octreotide Allergy Hives Verified 06/24/22 11:47 sulfamethoxazole Allergy nausea Verified 06/24/22 11:47 [From vomiting Sulfamethoxazole-Trimethoprim] trimethoprim Allergy nausea Verified 06/24/22 11:47 [From vomiting Sulfamethoxazole-Trimethoprim] aspirin AdvReac Verified 06/24/22 11:47 Review of Systems Status of ROS: Reports: 10 or more systems reviewed and unremarkable except as noted in History and below [facility] Medical History Anemia Esophageal varices Hernia Thrombocytopenia Surgical History H/O hernia repair (~2002) History of endoscopy Family History Father DM (diabetes mellitus), type 2 Social History Highest level of school completed/degree received: high school graduate Smoking Status: Never smoker How often do you have a drink containing alcohol: never AUDIT-C Alcohol total score: 0 Non-prescribed substance use: denies use Caffeine: Yes service: No Exam Narrative: Exam Narrative: Objective: In general no apparent distress, has had no evidence of bleeding, no vomiting blood no black vomitus, no black or red stools HEENT is unremarkable no facial asymmetry mouth clear throat clear Neck is supple Chest is clear no rales or wheezing Heart rhythm regular heart murmur Abdomen benign soft ext Extremities are no edema , neurologic nonfocal Skin is warm and dry Const: Vital Signs, click to edit/add: Vital Signs - 24 hr 07/12/22 08:37 07/12/22 10:04 Temperature 98.4 F 98.4 F Pulse Rate [Pulse Oximeter] 91 91 Respiratory Rate 18 18 Blood Pressure [Ri t Upper Arm] 119/52 L 105/61 Pulse Oximetry 98 97 Oxygen Delivery Me thod Room Air Room Air Course Vital Signs Vital signs: Initial Vital Signs Temperature 98.4 F 07/12/22 08:37 Temperature Source Temporal Artery Scan 07/12/22 08:37 Pulse Rate 91 07/12/22 08:37 Respiratory Rate 18 07/12/22 08:37 Blood Pressure 119/52 L 07/12/22 08:37 Blood Pressure Mean 74 07/12/22 08:37 Blood Pressure Position Sitting 07/12/22 08:37 Pulse Oximetry 98 07/12/22 08:37 Oxygen Delivery Method 07/12/22 08:37 Vital Signs Temperature 98.4 F 07/12/22 08:37 Pulse Rate 91 07/12/22 08:37 Respiratory Rate 18 07/12/22 08:37 Blood Pressure 119/52 L 07/12/22 08:37 Pulse Oximetry 98 07/12/22 08:37 Oxygen Delivery Method 07/12/22 08:37 Temperature 98.4 F 07/12/22 10:04 Pulse Rate 91 07/12/22 10:04 Respiratory Rate 18 07/12/22 10:04 Blood Pressure 105/61 07/12/22 10:04 Pulse Oximetry 97 07/12/22 10:04 Oxygen Delivery Method 07/12/22 10:04 Medical Decision Making MDM Narrative Medical decision making narrative: Patient has a history of portal hypertension thrombocytopenia esophageal varices likely from the portal hypertension. She has had no evidence of bleeding. She has had a recent viral type illness. I think could be appropriate to check her for COVID/influenza/RSV, IV fluids, check a test, electrolytes and CBC. Can give some Zofran as well. May need to give some Ativan if she is not . For some her dizziness, but I think the fluids will help her. Will review her hemodynamics as a are obtained. Patient agreed with this plan Addendum: Patient is negative for , positive for influenza a, lab studies also look reassuring. Rest light activity fluids recommended, no evidence of anemia at this time. Recheck with regular doctor next couple of days to update, return to ED sooner problems concerns worsening. Discussed that influenza A can be a 7-10 day illness. Should isolate from others as able. Good hand washing. Lab Data Labs: Lab Results 07/12/22 07/12/22 07/12/22 Range/Units 08:29 08:50 08:50 WBC 3.16 L (4.50-11.00) K/uL RBC 4.61 (4.00-5.20) m/uL Hgb 13.9 (12.0-16.0) gm/dL Hct 40.3 (33.0-51.0) % MCV 87 (80-100) fL MCH 30 (26-34) pg MCHC 35 (32-36) gm/dL RDW Coeff of Joss 13.6 (11.5-15.5) % Plt Count 75 L (140-440) K/uL Neut % (Auto) 61.8 (42.0-72.0) % Lymph % (Auto) 29.7 (20-44) % Henderson % (Auto) 5.4 (0.0-11.0) % Eos % (Auto) 2.5 (0.0-7.0) % Baso % (Auto) 0.3 (0.0-3.0) % Neut # (Auto) 2.00 (1.7-7.0) K/uL Lymph # (Auto) 0.90 (0.90-2.90) K/uL Henderson # (Auto) 0.20 (0.00-0.90) K/UL Eos # (Auto) 0.10 (0.00-0.50) K/uL Baso # (Auto) 0.00 (0.00-0.30) K/uL Abs Immat Gran (auto) 0.00 (0.00-0.30) K/uL Imm/Tot Granulo (auto) 0.3 % Diff Slide Review Acceptable Review (Acceptable) Sodium 141 (135-149) mmol/L Potassium 3.7 (3.6-5.1) mmol/L Chloride 108 (96-114) mmol/L Carbon Dioxide 24 (20-32) mmol/L BUN 16 (5-24) mg/dL Creatinine 0.6 (0.5-1.5) mg/dL Estimated Creat Clear 110.98 Estimated GFR 130 ml/min Glucose 74 (60-115) mg/dL Calcium 8.5 (8.4-10.6) mg/dL C-Reactive Protein 2.9 H (0.5-1.0) mg/dL HCG, Qual (Negative) SARS-CoV-2 (PCR) Negative SARS-CoV-2 (Negative) Influenza Type A (PCR) POSITIVE PCR FLU A A (Negative) Influenza Type B (PCR) Negative PCR FLU B (Negative) RSV (PCR) Negative PCR RSV (Negative) 07/12/22 Range/Units 08:50 WBC (4.50-11.00) K/uL RBC (4.00-5.20) m/uL Hgb (12.0-16.0) gm/dL Hct (33.0-51.0) % MCV (80-100) fL MCH (26-34) pg MCHC (32-36) gm/dL RDW Coeff of Joss (11.5-15.5) % Plt Count (140-440) K/uL Neut % (Auto) (42.0-72.0) % Lymph % (Auto) (20-44) % Henderson % (Auto) (0.0-11.0) % Eos % (Auto) (0.0-7.0) % Baso % (Auto) (0.0-3.0) % Neut # (Auto) (1.7-7.0) K/uL Lymph # (Auto) (0.90-2.90) K/uL Henderson # (Auto) (0.00-0.90) K/UL Eos # (Auto) (0.00-0.50) K/uL Baso # (Auto) (0.00-0.30) K/uL Abs Immat Gran (auto) (0.00-0.30) K/uL Imm/Tot Granulo (auto) % Diff Slide Review (Acceptable) Sodium (135-149) mmol/L Potassium (3.6-5.1) mmol/L Chloride (96-114) mmol/L Carbon Dioxide (20-32) mmol/L BUN (5-24) mg/dL Creatinine (0.5-1.5) mg/dL Estimated Creat Clear Estimated GFR ml/min Glucose (60-115) mg/dL Calcium (8.4-10.6) mg/dL C-Reactive Protein (0.5-1.0) mg/dL HCG, Qual Negative (Negative) SARS-CoV-2 (PCR) (Negative) Influenza Type A (PCR) (Negative) Influenza Type B (PCR) (Negative) RSV (PCR) (Negative) Discharge Plan Discharge Clinical Impression: Dizziness, Vomiting, Influenza A Patient Disposition: Home w/ Parent or Adult Condition: Improved Additional Instructions: Rest, light activity, fluids, Tylenol as needed, update primary care in the next 2-3 days, return to ED sooner problems concerns worsening. Keep isolated for the next couple days tell fever and symptoms resolve, influenza A can be 5-7 to 10 day illness. No evidence of anemia currently Activity Level: Light activity Discharge Diet: Regular Prescriptions: No Action multivitamin [Multiple Vitamins] Tablet 1 tab PO QDAY ferrous sulfate [Feosol] 325 mg (65 mg iron) tablet 325 mg PO DAILY Follow Up/Referrals: Kaleb Crawford MD [Primary Care Provider] - Stand Alone Forms: [employer] Info Instructions
--- NOTE | 2022-07-12 08:46 | ED.NURSE ---
NURSE RECEPTIONIST swab for covid/flu/rsv
[2022-07-12] MEDS: 0.9 % SODIUM CHLORIDE 1000 ml 1,000 ML 6000 ML IV (08:55)
--- OUTSIDE RECORDS SUMMARY | 2022-07-12 08:55 | XMS_ITS | Encounter Summary ---
:2000 Author Organization [place] Address [address] [place] [address] Care Team Providers Name Role Phone Mohit Shelby MD Unavailable 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 PCP - General 10/16/21 [address] [place] [address] Mohit Shelby MD Fellow Gastroenterology 07/01/21 [address] [place] [address] documented as of this encounter
--- OUTSIDE RECORDS SUMMARY | 2022-07-12 08:55 | XMS_ITS | Encounter Summary ---
:2000 Author Organization [place] Address [address] [place] [address] Care Team Providers Name Role Phone Mohit Shelby MD Unavailable [facility] Primary Care Provider Reason for Visit Reason Onset Date Comments Clinic Care Coordination - Follow-up 01/22/2022 LVM to schedule f/u visit in Apr/May Encounter Details Date Type Department Care Team Description [facility] [address] [place] [address] - Follow-up ([facility] to [place], [place] schedule f/u visit in [address] [place] [id number] Apr/May) [place], [place] [phone] (Work) [phone] Social History Tobacco Use Types Packs/Day Years Used Date Smoking Tobacco: Never Smokeless Tobacco: Never Alcohol Use Standard Drinks/Week Comments Yes 0 (1 standard drink = 0.6 oz pure alcoho l) occassionally Sex Assigned at Date Recorded Female 07/10/2021 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
--- OUTSIDE RECORDS SUMMARY | 2022-07-12 08:55 | XMS_ITS | Clinical Summary ---
:1999 Author Organization [facility] Address [address] [place] [address] Care Team Providers Name Role Phone Mohit Shelby MD Unavailable 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 Last Filed Vital Signs Vital Sign Reading Time Taken Comments Blood Pressure 116/77 07/10/2021 9:40 AM OIL FIELD TESTER Pulse 105 07/10/2021 9:40 AM OIL FIELD TESTER Temperature - - Respiratory Rate - - Oxygen Saturation 99% 07/10/2021 9:40 AM OIL FIELD TESTER Inhaled Oxygen Concentration - - Weight 66.6 kg (146 lb 14.4 oz) 07/10/2021 9:40 AM OIL FIELD TESTER Height - - Body Mass Index - [...] Address T ype Group Dates [employer] [id number] 2021-Trevor [phone] [address] [place] [id number] NEELAM SOARES [id number] Care Teams Desk Officer Relationship Specialty Start Date End Date Clinic, [facility] PCP - General 10/16/21 [address] [place] [address] Mohit Shelby MD Fellow Gastroenterology 07/01/21 [address] [place] [address]
[2022-07-12] MEDS: ONDANSETRON 2 MG/ML inj 4 MG IVP (08:56)
--- OUTSIDE RECORDS SUMMARY | 2022-07-12 08:56 | XMS_ITS | Encounter Summary ---
:1999 Author Organization [facility] Address [address] [place] [address] Care Team Providers Name Role Phone Mohit Shelby MD Unavailable [facility] Primary Care Provider Reason for Visit Diagnostic Imaging MRI (Routine) - Closed Specialty Diagnoses / Procedures Referred By Contact Refer red To Contact Diagnoses Portal hypertension (H) Mohit Shelby MD Procedures MR Liver wo & w Contrast [address] [place], [place] [address] Referral ID Status Reason Start Date Expiration Date Visits Requ ested Visits Authorized [id number] Closed 11/11/2021 11/11/2022 1 1 Encounter Details Date Type Department Care Team Description 01/14/2022 Ancillary Procedure [facility] Por vladimir hypertension (H) Imaging [facility] [address] [facility] [address] 1[address] [place] [address] Social History Tobacco Use Types Packs/Day Years Used Date Smoking Tobacco: Never Smokeless Tobacco: Never Alcohol Use Standard Drinks/Week Comments Yes 0 (1 standard drink = 0.6 oz pure alcoho l) occassionally Sex Assigned at Date Recorded Female 07/10/2021 7:57 AM HVAC RESIDENTIAL SERVICE TECHNICIAN COVID-19 Exposure Response Date Recorded In the [...] Depression Total Score: 9 07/11/2021 7:34 AM HVAC RESIDENTIAL SERVICE TECHNICIAN documented as of this encounter Care Teams Senior Quality Engineer Relationship Specialty Start Date End Date Clinic, [facility] PCP - General 10/16/21 [address] [place] [address] Mohit Shelby MD Fellow Gastroenterology 07/01/[address] [place] [address] documented as of this encounter
--- OUTSIDE RECORDS SUMMARY | 2022-07-12 08:56 | XMS_ITS | Encounter Summary ---
:1999 Author Organization [facility] Address [address] [place] [address] Care Team Providers Name Role Phone Mohit Shelby MD Unavailable [facility] Primary Care Provider Encounter Details Date Type Department Care Team Description 10/16/2021 Travel Social History Tobacco Use Types Packs/Day Years Used Date Smoking Tobacco: Never Smokeless Tobacco: Never Alcohol Use Standard Drinks/Week Comments Yes 0 (1 standard drink = 0.6 oz pure alcoho l) occassionally Sex Assigned at Date Recorded Female 07/10/2021 7:57 AM TOWN ADMINISTRATOR COVID-19 Exposure Response Date Recorded In the last month, have you been in contact with No / Unsure 10/16/2021 8:45 AM TOWN ADMINISTRATOR someone who was confirmed or suspected to have Coronavirus / COVID-19? documented as of this encounter Plan of Treatment Not on filedocumented as of this encounter Visit Diagnoses Not on filedocumented in this encounter Additional Health Concerns Assessment Noted Time PHQ-9 Depression Total Score: 9 07/11/2021 7:34 AM TOWN ADMINISTRATOR documented as of this encounter Care Teams Medical Territory Manager Relationship Specialty Start Date End Date [facility] PCP - General 10/16/21 [address] [place] [phone] Mohit Shelby MD Fellow Gastroenterology 07/01/21 [address] [place] [address] documented as of this encounter
--- OUTSIDE RECORDS SUMMARY | 2022-07-12 08:56 | XMS_ITS | Encounter Summary ---
:1999 Author Organization [facility] Address [address] [place] [address] Care Team Providers Name Role Phone Mohit Shelby MD Unavailable No Ref-Primary, Physician Primary Care Provider [phone] Reason for Visit Reason Onset Date Comments Previsit 07/10/2021 Encounter Details Date Type Department Care Team Description 07/10/2021 PRE VISIT [facility] Mohit Shelby MD Previsit Hepatology Clinic [address] [place] [address] [place] [address] [place] [phone] Social History Tobacco Use Types Packs/Day Years Used Date Smoking Tobacco: Never Smokeless Tobacco: Never Alcohol Use Standard Drinks/Week Comments Yes 0 (1 standard drink = 0.6 oz pure alcoho l) occassionally Sex Assigned at Date Recorded Female 07/10/2021 7:57 AM GREENS CUTTER documented as of this encounter Miscellaneous Notes [...] LEVEL N/A HEPATITIS B CORE ANTIBODY N/A NS CUTTER documented in this encounter Plan of Treatment Not on filedocumented as of this encounter Visit Diagnoses Not on filedocumented in this encounter Additional Health Concerns Assessment Noted Time PHQ-9 Depression Total Score: 9 07/11/2021 7:34 AM GREENS CUTTER documented as of this encounter Care Teams Agricultural Plow Operator Relationship Specialty Start Date End Date No Ref-Primary, Physician PCP - General 07/01/21 Mohit Shelby MD Fellow Gastroenterology 07/01/[address] [place] [address] documented as of this encounter
--- OUTSIDE RECORDS SUMMARY | 2022-07-12 08:56 | XMS_ITS | Encounter Summary ---
:1999 Author Organization [facility] Address [address] [place] [address] Care Team Providers Name Role Phone Mohit Shelby MD Unavailable No Ref-Primary, Physician Primary Care Provider [phone] Reason for Referral Diagnostic Imaging CT Scan (Routine) - Pending Review Specialty Diagnoses / Procedures Referred By Contact Refer red To Contact Diagnoses Cavernous transformation of portal vein Mohit Shelby MD Procedures CT Liver wo & w Contrast [address] [place] [id number] Referral ID Status Reason Start Date Expiration Date Visits V isits Requested Authorized [id number] Pending 10/01/2021 10/01/2022 1 1 Review AIN INSPECTOR Encounter Details Date Type Department Care Team Description 10/01/2021 Orders Only [facility] Mohit Shelby MD Cavernous transformation Hepatology Clinic [address] [facility] of portal vein (Primary [place], [place] Dx) [address] [facility] [place] [address] [place], [place] [phone] (Work) [phone] Social History Tobacco Use Types Packs/Day Years Used Date Smoking Tobacco: Never Smokeless Tobacco: Never Alcohol Use Standard Drinks/Week Comments Yes 0 (1 standard drink = 0.6 oz pure alcoho l) occassionally Sex Assigned at Date Recorded Female 07/10/2021 7:57 AM CURTAIN INSPECTOR documented as of this encounter Plan of Treatment Not on filedocumented as of this encounter Results CT Liver wo & w Contrast (10/16/2021 9:50 AM CURTAIN INSPECTOR) Anatomical Region Laterality Modality Abdomen/Pelvis, SUBRAD CT BODY, UMP CT ABDOMEN PELVIS, Computed Tomography RAD CT Specimen (Source) Anatomical Location Collection Method / Collectio n Time Received Time / Laterality Volume Impressions 10/16/2021 10:06 AM CURTAIN INSPECTOR IMPRESSION: 1. 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 There is resultant marked splenomegaly a nd large collateral vessels. 2. ??Enhancing lesion in posterior right lobe of the liver, segment VII, may represent adenoma or focal nodu lar hyperplasia. Recommend follow-up with MRI in 6 months to confir m stability. LEA ZELAYA MD Narrative 10/16/2021 10:[address] LIVER WITHOUT AND WITH CONTRAST 10/16/2021 [...] Depression Total Score: 9 07/11/2021 7:34 AM CURTAIN INSPECTOR documented as of this encounter Care Teams Board Turner Relationship Specialty Start Date End Date No Ref-Primary, Physician PCP - General 07/01/21 10/15/21 Mohit Shelby MD Fellow Gastroenterology 07/01/[address] [place] [address] documented as of this encounter
--- OUTSIDE RECORDS SUMMARY | 2022-07-12 08:56 | XMS_ITS | Encounter Summary ---
:1999 Author Organization [facility] Address [address] [place] [address] Care Team Providers Name Role Phone Mohit Shelby MD Unavailable No Ref-Primary, Physician Primary Care Provider [phone] Reason for Referral Consultation (Routine) - Closed Specialty Diagnoses / Procedures Referred By Contact Refer red To Contact Gastroenterology Diagnoses Portal vein thrombosis Mohit Shelby MD [address] [place], [place] [address] Referral ID Status Reason Start Date Expiration Date Visits Requ ested Visits Authorized [id number] Closed 07/10/2021 07/10/2022 1 1 Scheduling Instructions If EUS or ERCP is selected, it requires clinical review prior to scheduling. iagnostic Imaging Ultrasound (Routine) - Closed Specialty Diagnoses / Procedures Referred By Contact Refer red To Contact Diagnoses Portal vein thrombosis Mohit Shelby MD Procedures US Abdomen Complete w Doppler Complete [address] [place], [place] [address] Referral ID Status Reason Start Date Expiration Date Visits Requ ested Visits Authorized [id number] Closed 07/10/2021 07/10/2022 1 1 CIATE MARKETING MANAGER Reason for Visit Reason Comments New Patient Hypertension Consultation (Routine) - Closed Specialty Diagnoses / Procedures Referred By Contact Refer red To Contact Medical Oncology Diagnoses Thrombocytopenia (H) Splenomegaly Generic External Data Department Referral ID Status Reason Start Date Expiration Date Visits Requ ested Visits Authorized [id number] Closed 06/25/2021 06/25/2022 1 1 Encounter Details Date Type Department Care Team Description 07/10/[address] [facility] [address] [place] [address] Portal vein thrombosis (Primary Dx); Hepatology Clinic Mohit Shelby MD [address] [place] [address] Cavernous transformation of portal vein; [facility] Splenomegaly; [address] [place] [address] Portal hypertension (H); [place], [place] PCOS (polycy stic ovarian syndrome) [phone] Social History Tobacco Use Types Packs/Day Years Used Date Smoking Tobacco: Never Smokeless Tobacco: Never Alcohol Use Standard Drinks/Week Comments Yes 0 (1 standard drink = 0.6 oz pure alcoho l) occassionally Sex Assigned at Date Recorded Female 07/10/2021 7:57 AM ASSOCIATE MARKETING MANAGER COVID-19 Exposure Response Date Recorded In the last month, have you been in contact with No / Unsure 07/10/2021 9:17 AM ASSOCIATE MARKETING MANAGER someone who was confirmed or suspected to have Coronavirus / COVID-19? documented as of this encounter Last Filed Vital Signs Vital Sign Reading Time Taken Comments Blood Pressure 116/77 07/10/2021 9:40 AM ASSOCIATE MARKETING MANAGER Pulse 105 07/10/2021 9:40 AM ASSOCIATE MARKETING MANAGER Temperature - - Respiratory Rate - - Oxygen Saturation 99% 07/10/2021 9:40 AM ASSOCIATE MARKETING MANAGER Inhaled Oxygen Concentration - - Weight 66.6 kg (146 lb 14.4 oz) 07/10/2021 9:40 AM ASSOCIATE MARKETING MANAGER Height - - Body Mass Index - [...] who stated that patient was born in [place] with complicated delivery and umbilical cord issues, [...] on Nexplanon for control. She follows with STORE ADMINISTRATIVE ASSISTANT regarding PCOS. She is planning to go [...] M.D. Advanced & Transplant Hepatology Fellow [facility] CIATE MARKETING MANAGER Associated attestation - Woo Lynne MD - 07/20/2021 5:12 PM ASSOCIATE MARKETING MANAGER The patient was seen and examined. The above assessment and plan was developed jointly with the fellow. Thank you very much for allowing me to participate in the care of this patient. If you have any questions regarding my recommendations, please do not hesitate to contact me. Woo Lynne MD water hauler [facility] [employer] Executive Application Dba, Solid Organ Transplant Program [facility] documented in this encounter Plan [...] Complete w Doppler Complete (07/22/2021 10:40 AM ASSOCIATE MARKETING MANAGER) Anatomical Region Laterality Modality Abdomen/Pelvis, Vascular Ultrasound Specimen (Source) Anatomical Location Collection Method / Collectio n Time Received Time / Laterality Volume Impressions 07/22/2021 11:05 AM ASSOCIATE MARKETING MANAGER IMPRESSION: 1. Question of a masslike lesion in the right lobe of liver. Recommend CT for further evaluation. 2. Portal veins are not well seen. Retro grade flow in the splenic vein. GEM LACEY MD Narrative 07/22/2021 11:05 AM ASSOCIATE MARKETING MANAGER US ABDOMEN COMPLETE WITH DOPPLER COMPLETE ??07/22/2021 [...] vein. GEM LACEY MD Woo Lynne MD [facility] ORDERABLES documented in this encounter Visit Diagnoses Diagnosis Portal vein thrombosis - Primary Cavernous transformation of portal vein Unspecified circulatory system disorder Splenomegaly Portal hypertension (H) Portal hypertension PCOS (polycystic ovarian syndrome) Polycystic ovaries Portal vein thrombosis documented in this encounter Additional Health Concerns Assessment Noted Time PHQ-9 Depression Total Score: 9 07/11/2021 7:34 AM ASSOCIATE MARKETING MANAGER documented as of this encounter Care Teams Printing Plate Clerk Relationship Specialty Start Date End Date No Ref-Primary, Physician PCP - General 07/01/21 10/15/21 Mohit Shelby MD Fellow Gastroenterology 07/01/[address] [place] [address] documented as of this encounter
--- OUTSIDE RECORDS SUMMARY | 2022-07-12 08:56 | XMS_ITS | Encounter Summary ---
:1999 Author Organization [facility] Address [address] [place] [address] Care Team Providers Name Role Phone Mohit Shelby MD Unavailable [facility] Primary Care Provider Reason for Referral Diagnostic Imaging MRI (Routine) - Closed Specialty Diagnoses / Procedures Referred By Contact Refer red To Contact Diagnoses Portal hypertension (H) Mohit Shelby MD Procedures MR Liver wo & w Contrast [address] [place] [address] Referral ID Status Reason Start Date Expiration Date Visits Requ ested Visits Authorized [id number] Closed 11/11/2021 11/11/2022 1 1 Encounter Details Date Type Department Care Team Description 11/11/2021 Orders Only [facility] Mohit Shelby MD Cavernous transformation of portal vein (Primary Dx); Hepatology Clinic [address] [place] [address] Portal hypertension (H) [id number] [place] [address] [phone] (Work) [phone] Social History Tobacco Use Types Packs/Day Years Used Date Smoking Tobacco: Never Smokeless Tobacco: Never Alcohol Use Standard Drinks/Week Comments Yes 0 (1 standard drink = 0.6 oz pure alcoho l) occassionally Sex Assigned at Date Recorded Female 07/10/2021 7:57 AM FACSIMILE MACHINE OPERATOR COVID-19 Exposure Response Date Recorded In the last month, have you been in contact with No / Unsure 10/16/2021 8:45 AM FACSIMILE MACHINE OPERATOR someone who was confirmed or suspected to [...] Depression Total Score: 9 07/11/2021 7:34 AM FACSIMILE MACHINE OPERATOR documented as of this encounter Care Teams Wire Coiler Machine Operator Relationship Specialty Start Date End Date Clinic, [facility] PCP - General 10/16/21 [address] [place] [address] Mohit Shelby MD Fellow Gastroenterology 07/01/21 [address] [place] [address] documented as of this encounter
--- OUTSIDE RECORDS SUMMARY | 2022-07-12 08:56 | XMS_ITS | Encounter Summary ---
:1999 Author Organization [facility] Address [address] [place] [address] Care Team Providers Name Role Phone Unavailable [...] at Date Recorded Female 07/10/2021 7:57 AM PERSONAL LINES INSURANCE AGENT documented as of this encounter Miscellaneous Notes Telephone Encounter - Jocy Méndez - 06/26/2021 9:18 AM CST Action 06/26/2021@0918 Action Taken CE update records from [facility] received and sent to [facility] Ck ONAL LINES INSURANCE AGENT documented in this encounter Plan of Treatment Not on filedocumented as of this encounter Visit Diagnoses Not on filedocumented in this encounter
--- OUTSIDE RECORDS SUMMARY | 2022-07-12 08:56 | XMS_ITS | Encounter Summary ---
:1999 Author Organization [facility] Address [address] [place] [address] Care Team Providers Name Role Phone Mohit Shelby MD Unavailable No Ref-Primary, Physician Primary Care Provider [phone] Encounter Details Date Type Department Care Team Description 07/22/2021 Travel Social History Tobacco Use Types Packs/Day Years Used Date Smoking Tobacco: Never Smokeless Tobacco: Never Alcohol Use Standard Drinks/Week Comments Yes 0 (1 standard drink = 0.6 oz pure alcoho l) occassionally Sex Assigned at Date Recorded Female 07/10/2021 7:57 AM CARDIOLOGY TECHNICIAN COVID-19 Exposure Response Date Recorded In the last month, have you been in contact with No / Unsure 07/22/2021 8:35 AM CARDIOLOGY TECHNICIAN someone who was confirmed or suspected to have Coronavirus / COVID-19? documented as of this encounter Plan of Treatment Not on filedocumented as of this encounter Visit Diagnoses Not on filedocumented in this encounter Additional Health Concerns Assessment Noted Time PHQ-9 Depression Total Score: 9 07/11/2021 7:34 AM CARDIOLOGY TECHNICIAN documented as of this encounter Care Teams Icer Air Conditioning Relationship Specialty Start Date End Date No Ref-Primary, Physician PCP - General 07/01/21 10/15/21 Mohit Shelby MD Fellow Gastroenterology 07/01/[address] [place] [address] documented as of this encounter
--- OUTSIDE RECORDS SUMMARY | 2022-07-12 08:56 | XMS_ITS | Encounter Summary ---
:1999 Author Organization [facility] Address [address] [place] [address] Care Team Providers Name Role Phone Mohit Shelby MD Unavailable No Ref-Primary, Physician Primary Care Provider [phone] Reason for Visit Reason Onset Date Comments Call to schedule test 10/13/[address] WHIT Encounter Details Date Type Department Care Team Description [facility]/13[facility]2021 [facility] Hep[facility] [address] [place] [address] (LVM to schedule CT [place], [place] WHIT) [address] [place] [address] [phone] (Work) [phone] Social History Tobacco Use Types Packs/Day Years Used Date Smoking Tobacco: Never Smokeless Tobacco: Never Alcohol Use Standard Drinks/Week Comments Yes 0 (1 standard drink = 0.6 oz pure alcoho l) occassionally Sex Assigned at Date Recorded Female 07/10/2021 7:57 AM WET PAN OPERATOR documented as of this encounter Plan of Treatment Not on filedocumented as of this encounter Visit Diagnoses Not on filedocumented in this encounter Additional Health Concerns Assessment Noted Time PHQ-9 Depression Total Score: 9 07/11/2021 7:34 AM WET PAN OPERATOR documented as of this encounter Care Teams Supervisory Investigative Specialist Relationship Specialty Start Date End Date No Ref-Primary, Physician PCP - General 07/01/21 10/15/21 Mohit Shelby MD Fellow Gastroenterology 07/01/[address] [place] [address] documented as of this encounter
--- OUTSIDE RECORDS SUMMARY | 2022-07-12 08:56 | XMS_ITS | Encounter Summary ---
:1999 Author Organization [facility] Address [address] [place] [address] Care Team Providers Name Role Phone Mohit Shelby MD Unavailable [facility] Primary Care Provider Reason for Referral Diagnostic Imaging CT Scan (Routine) - Pending Review Specialty Diagnoses / Procedures Referred By Contact Refer red To Contact Diagnoses Cavernous transformation of portal vein Mohit Shelby MD Procedures CT Liver wo & w Contrast [address] [place], [place] [address] Referral ID Status Reason Start Date Expiration Date Visits V isits Requested Authorized [id number] Pending 10/01/2021 10/01/2022 1 1 Review WORKER WIRE FENCE ERECTOR Reason for Visit Diagnostic Imaging CT Scan (Routine) - Pending Review Specialty Diagnoses / Procedures Referred By Contact Refer red To Contact Diagnoses Cavernous transformation of portal vein Mohit Shelby MD Procedures CT Liver wo & w Contrast [address] [place], [place] [address] Referral ID Status Reason Start Date Expiration Date Visits V isits Requested Authorized [id number] Pending 10/01/2021 10/01/2022 1 1 Review Encounter Details Date Type Department Care Team Description 10/16/2021 Hospital Encounter [facility] [place] [address] [place] [address] transformation of [address] [place] [address] Social History Tobacco Use Types Packs/Day Years Used Date Smoking Tobacco: Never Smokeless Tobacco: Never Alcohol Use Standard Drinks/Week Comments Yes 0 (1 standard drink = 0.6 oz pure alcoho l) occassionally Sex Assigned at Date Recorded Female 07/10/2021 7:57 AM IRONWORKER WIRE FENCE ERECTOR COVID-19 Exposure Response Date Recorded In the last month, have you been in contact with No / Unsure 10/16/2021 8:45 AM IRONWORKER WIRE FENCE ERECTOR someone who was confirmed or suspected to [...] AM Cavernous Result s for this CONTRAST IRONWORKER WIRE FENCE ERECTOR transformation of procedure are in portal vein the results section. documented in this encounter Results CT Liver wo & w Contrast (10/16/2021 9:50 AM IRONWORKER WIRE FENCE ERECTOR) Anatomical Region Laterality Modality Abdomen/Pelvis, SUBRAD CT BODY, UMP CT ABDOMEN PELVIS, Computed Tomography RAD CT Specimen (Source) Anatomical Location Collection Method / Collectio n Time Received Time / Laterality Volume Impressions 10/16/2021 10:06 AM IRONWORKER WIRE FENCE ERECTOR IMPRESSION: 1. 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 There is resultant marked splenomegaly a nd large collateral vessels. 2. ??Enhancing lesion in posterior right lobe of the liver, segment VII, may represent adenoma or focal nodu lar hyperplasia. Recommend follow-up with MRI in 6 months to confir m sixto. LEA ZELAYA MD Narrative 10/16/2021 10:06 AM IRONWORKER WIRE FENCE ERECTOR CT LIVER WITHOUT AND WITH CONTRAST 10/16/2021 [...] CT SCAN FLUSH Given 10/16/2021 9:19 AM IRONWORKER WIRE FENCE ERECTOR 65 mLs Intravenous, 100 mL, ONCE, On Deyanira 10/16/21 at 0930, For 1 dose, This entry is for use by Radiology to intermittently used as a flush in patients receiving a CT scan. iopamidol ([id number]-[id number]) solution 500 mL Given 10/16/2021 9:19 AM IRONWORKER WIRE FENCE ERECTOR 73 mLs 500 mL, Intravenous, ONCE, On Deyanira 10/16/21 at 0930, For 1 dose documented in this encounter Additional Health Concerns Assessment Noted Time PHQ-9 Depression Total Score: 9 07/11/2021 7:34 AM IRONWORKER WIRE FENCE ERECTOR documented as of this encounter Care Teams Director Telemetry Relationship Specialty Start Date End Date Clinic, [facility] PCP - General 10/16/21 [address] [place] [address] Mohit Shelby MD Fellow Gastroenterology 07/01/21 [address] [place] [address] documented as of this encounter
--- OUTSIDE RECORDS SUMMARY | 2022-07-12 08:56 | XMS_ITS | Encounter Summary ---
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 Diagnostic Imaging Ultrasound (Routine) - Closed Specialty Diagnoses / Procedures Referred By Contact Refer red To Contact Diagnoses Portal vein thrombosis Mohit [place] MD Procedures US Abdomen Complete w Doppler Complete [address] [facility] [place], [place] [address] Referral ID Status Reason Start Date Expiration Date Visits Requ ested Visits Authorized [id number] Closed 07/10/2021 07/10/2022 1 1 Encounter Details Date Type Department Care Team Description 07/22/2021 Hospital Encounter M [facility] [place] [place] Por tal vein [facility] [address] [facility] [address] [facility] [address] [place] [phone] Social History Tobacco Use Types Packs/Day Years Used Date Smoking Tobacco: Never Smokeless Tobacco: Never Alcohol Use Standard Drinks/Week Comments Yes 0 (1 standard drink = 0.6 oz pure alcoho l) occassionally Sex Assigned at Date Recorded Female 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 Question of a masslike lesion in the right lobe of liver. Recommend CT for further evaluation. 2. Portal veins are not well seen. Retro grade flow in the splenic vein. GEM LACEY MD Narrative 07/22/2021 11:05 AM MECHANIC WELDER TRUCK DRIVER US ABDOMEN COMPLETE WITH DOPPLER COMPLETE ??07/22/2021 [...] vein. 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
--- OUTSIDE RECORDS SUMMARY | 2022-07-12 08:56 | XMS_ITS | Encounter Summary ---
:2000 Author Organization [place] Address [address] [place] [id number] Care Team Providers Name Role Phone Unavailable Primary Care Provider Unavailable Reason for Referral Consultation (Routine) - Closed Specialty Diagnoses / Procedures Referred By Contact Refer red To Contact Medical Oncology Diagnoses Thrombocytopenia (H) Splenomegaly Generic External Data Department Referral ID Status Reason Start Date Expiration Date Visits Requ ested Visits Authorized [id number] Closed 06/25/2021 06/25/2022 1 1 UCT ARCHITECT Encounter Details Date Type Department Care Team Description 06/25/2021 Transcribe Orders GENERIC EXTERNAL Provider, Thromb ocytopenia (H) (Primary Dx); DATA DEPARTMENT Generic Splenomegaly External Data Social History Tobacco Use Types Packs/Day Years Used Date Smoking Tobacco: Never Assessed Sex Assigned at Date Recorded Female 07/10/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
--- OUTSIDE RECORDS SUMMARY | 2022-07-12 08:56 | XMS_ITS | Encounter Summary ---
:2000 Author Organization [place] Address [address] [place] [address] Care Team Providers Name Role Phone Mohit [place] MD Unavailable [facility] Primary Care Provider Reason for Referral Diagnostic Imaging MRI (Routine) - Pending Review Specialty Diagnoses / Procedures Referred By Contact Refer red To Contact Diagnoses Cavernous transformation of portal vein Mohit [place] MD Procedures MR Liver wo & w Contrast [address] [place], [place] [address] Referral ID Status Reason Start Date Expiration Date Visits V isits Requested Authorized [id number] Pending 10/28/2021 10/28/2022 1 1 Review Encounter Details Date Type Department Care Team Description 10/28/2021 Orders Only [facility] Mohit [place] MD Cavernous transformation [facility] [address] of portal vein (Primary [place], [place] Dx) [address] 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
--- OUTSIDE RECORDS SUMMARY | 2022-07-12 08:58 | XMS_ITS | Clinical Summary ---
:2000 Author Organization [facility] [place] [address] Care Team Providers Name Role Phone Lauryn Umana Primary Care Provider Unavailable Allergies Active Allergy Reactions Severity Noted Date Comments Aspirin, Buffered Bleeding 04/12/2007 Amoxicillin-Pot Rash 10/19/2006 Clavulanate Ibuprofen Bleeding 04/12/2007 Octreotide Other reaction( s): hives, rash Sulfamethoxazole-Trimeth Nausea And Vomiting 7 oprim Medications Medication Sig Dispensed Refills Start Date End Date Status multivitamin (CHEWABLE Take 1 tablet by 100 tablet 3 1 Active MULTI VITAMIN) Chew mouth once daily. ferrous sulfate 325 mg Take 1 Tablet 0 11/18/2021 Active delayed release tablet (325 mg) by mouth once daily. lansoprazole (PREVACID) Take 30 mg by 0 Active 30 mg capsule mouth once daily if needed for GI Upset or Heartburn. Active Problems Problem Noted Date Pyelonephritis 04/02/2022 [...] Portal hypertension 10/19/2006 Overview: Dr Paul @ [facility]. 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 Rutherford Resolved Problems Problem Noted Date Resolved Date Irregular periods 10/25/2015 08/06/2020 Portal hypertension 03/11/2011 2011 Other and unspecified coagulation defects 10/19/2006 01/27/2008 Other and unspecified capillary diseases 10/19/2006 08/06/2020 Encounters Date Type Specialty Care Team Description 05/19/2022 - Emergency Christie, Kenn Closed nondis placed 05/20/2022 MD Osiel fracture of fif th metatarsal bone of left foot, initial e ncounter (Primary Dx) 05/19/2022 Travel 04/23/2022 Office Visit [facility] F/U (Yadira Kumar MD [facility] spital pylenephritis d od 04/04/2022); Va ginal Problem (Discha rge, itching) 04/23/2022 Travel from Last 3 Months Immunizations Name Administration Dates Next Due AMB Influenza, IIV3 (Age >=3 years) 06/11/2011 Preserve Free (Flu Clinic Only) AMB Influenza, IIV4 PF (=>6 mos 05/04/2014 Flulaval,Fluzone Fluarix)(Flu Clinic Only) BCG Vaccine (Percutaneous) 1999 COVID-19 vaccine (Next Caller 03/21/2021 30mcg/0.3mL) PF, MDV DTaP 05/20/2006, 03/26/2005, [...] Assigned at Date Recorded Not on file Obstetrics History Para Term AB IAB SAB Ectopic Multiple Living Live Births 0 0 0 0 0 0 0 0 0 0 0 Last Filed Vital Signs Vital Sign Reading Time Taken Comments Blood Pressure 112/54 05/19/2022 10:40 PM CDT Pulse 72 05/19/2022 10:40 PM CDT Temperature 36.8 ??C (98.3 ??F) 05/19/2022 10:40 PM CDT Respiratory Rate 16 05/19/2022 10:40 PM CDT Oxygen Saturation 100% 05/19/2022 10:40 PM CDT Inhaled Oxygen Concentration - - Weight 72.6 kg (160 lb) 05/19/2022 10:40 PM CDT Height 162.6 cm (5' 4) 05/19/2022 10:40 PM CDT Body Mass Index 27.46 05/19/2022 10:40 PM CDT Plan of Treatment Health Maintenance [...] for age 9-26 Completed 11/02/2013, 07/04/2013, 03/24/2011 HIV for age 15-65 Completed 08/15/2021 Hepatitis C screening for age Completed 08/15/2021 18-79 Procedures Procedure Name Priority Date/Time Associated Diagnosis Comme nts XR FOOT 3 VIEWS STAT 05/19/2022 11:13 PM Resul ts for this LEFT PORTABLE CDT procedure are in the results section. TRICHOMONAS, Routine 04/23/2022 2:39 PM Vaginal discharge Resu lts for this JANET, AND CDT procedure are i n BACTERIAL VAGINOSIS the resu lts BY BRET section. from Last 3 Months Results XR FOOT 3 VIEWS LEFT PORTABLE (05/19/2022 11:13 PM CDT) Anatomical Region Laterality Modality FEET, FOOT L Digital Radiography Specimen (Source) Anatomical Collection Method Collection Time Re ceived Time Location / / Volume Laterality 05/19/2022 11:37 PM CDT Narrative 05/19/2022 11:37 PM CDT For Patients: ??As a result of the Cures Act, medical imaging exams and procedure report s are released immediately into your [employer] medical record. ??You may view this report before your referring provider. ??If you have questions, please contact your health care provider. Indication: Toe pain. Technique: Left foot 3 views. Comparison: None. Impression: Bones: Nondisplaced oblique fracture of the 5th metatarsal shaft. Alignment is normal. No additional fracture identified. Joint spaces: Unremarkable. Soft tissues: Unremarkable. Dictated by Seth Smiley MD @ 2 11:37:36 PM (Electronically Signed) Procedure Note Seth Smiley MD - 05/19/2022For matting of this note might be different from the original. For Patients: As a result of the Cures Act, medical imaging exams and procedure reports are released immediately into your electronic medical record. You may view this report before your referring provider. If you have questions, please contact [facility] health care provider. Indication: Toe pain. Technique: Left foot 3 views. Comparison: None. Impression: Bones: Nondisplaced oblique fracture of the 5th metatarsal shaft. Alignment is normal. No additional fracture identified. Joint spaces: Unremarkable. Soft tissues: Unremarkable. Dictated by Seth Smiley MD @ 2 11:37:36 PM (Electronically Signed) Kenn Soriano MD GENERAL IMAGING (ABNORMAL) TRICHOMONAS, JANET, AND BACTERIAL VAGINOSIS BY BRET (04/23/2022 2:39 PM CDT) [facility] Method Time Signature JANET SPECIES Positive (A) Negative 04/24/2022 [facility] 1:09 AM CDT LABORATORY-[facility] LAB[facility]ATORY JANET Positive (A) Negative 04/24/2022 [facility] 1:09 AM CDT LABORATORY-CE NTRAL LABORATORY TRICHOMONAS VVA Negative Negative 04/24/2022 [facility] 1:09 AM CDT LABORATORY-CE NTRAL LABORATORY BACTERIAL Negative Negative 04/24/2022 [facility] VAGINOSIS 1:09 AM CDT LABORATORY-CE NTRAL LABORATORY Specimen Anatomical Collection Method Collection Time Receive d Time (Source) Location / / Volume Laterality Other VAGINAL SWAB / Non-Blood / 04/23/2022 2:39 PM 022 2:51 Unknown Unknown CDT PM CDT Noa Knowles MD MICROBIOLOGY Performing Organization Address City/State/ZIP Code Phon e Number [facility] [address] [place] [address] LABORATORY-CENTRAL 2000 LABORATORY from Last 3 Months Insurance Payer Benefit Plan / Subscriber ID Effective Dates Phone Addre ss Type Group [employer] [id number] 2022-Present [address] [address] [place] [address] PREFERRED ONE [employer] [id number] 2019-Present [address] [place] [address] ALEJO JARA [facility] Employer 08/09/[address] [place] ([place]) [place] [address] [employer] Self 2000 [address] (Home) [place] [address] Advance Directives Latest Code Status on File Code Status Date Activated Date Inactivated Comments Full Code 04/02/2022 6:03 PM 04/04/2022 8:06 PM Code Status Discussion: Reviewed Preferences Care Teams Soft Shoe Dancer Relationship Specialty Start Date End Date Lauryn Umana PCP - General 11/18/21
[2022-07-12 09:01] LABS: Basophils Percent Auto 0.3 % (0.0-3.0); Eosinophils Percent Auto 2.5 % (0.0-7.0); Hematocrit 40.3 % (33.0-51.0); Hemoglobin* 13.9 gm/dL (12.0-16.0); Immature Granulocytes Pct Auto 0.3 %; Lymphocytes Percent Auto 29.7 % (20-44); Mean Corpuscular HGB Conc 35 gm/dL (32-36); Mean Corpuscular Hemoglobin 30 pg (26-34); Mean Corpuscular Volume 87 fL (80-100); Monocytes Percent Auto 5.4 % (0.0-11.0); Neutrophils Percent Auto 61.8 % (42.0-72.0); RDW Coefficient of Variation % 13.6 % (11.5-15.5); Red Blood Count 4.61 m/uL (4.00-5.20); White Blood Count* 3.16 K/uL (4.50-11.00)
[2022-07-12 09:10] LABS: Chloride* 108 mmol/L (96-114); Sodium* 141 mmol/L (135-149)
[2022-07-12 09:11] LABS: Potassium* 3.7 mmol/L (3.6-5.1)
[2022-07-12 09:13] LABS: Creatinine* 0.6 mg/dL (0.5-1.5); Est. Creatinine Clearance* 110.98; Estimated Glomerular Filt Rate 130 ml/min
[2022-07-12 09:14] LABS: Blood Urea Nitrogen* 16 mg/dL (5-24); Calcium* 8.5 mg/dL (8.4-10.6); Carbon Dioxide* 24 mmol/L (20-32); Glucose* 74 mg/dL (60-115)
[2022-07-12 09:17] LABS: C Reactive Protein* 2.9 mg/dL (0.5-1.0); Platelet Count* 75 K/uL (140-440); Slide Review Reflex Yes
[2022-07-12 09:19] LABS: Slide Review Acceptable Review (Acceptable)
[2022-07-12 09:25] LABS: HCG Qualitative Serum* Negative (Negative)
[2022-07-12 09:26] LABS: PCR FLU A POSITIVE PCR FLU A (Negative); PCR FLU B Negative PCR FLU B (Negative); PCR RSV Negative PCR RSV (Negative)
[2022-07-12] MEDS: LORazepam 2 MG/ML inj 0.5 MG IVP (10:01)
[2022-07-12 10:04] VITALS: BP 105/61; PULSE 91; RESP 18; TEMP 36.9; O2SAT 97
[2022-07-12 10:05] LABS: SARS PCR* Negative SARS-CoV-2 (Negative)
== END 2022-07-12 10:24 | disposition home or self-care (01) ==
PROVIDERS: Emergency Provider Family Medicine; PCP Surgery
DX: J09.X2 Influenza due to identified novel influenza A virus with other respiratory manifestations (principal); R11.10 Vomiting, unspecified
CPT/HCPCS: 36415; 80048; 84703; 85025; 86140; 87502; 87634; 87635; 94761; 96374; 96375; 99284; J2060; J2405; J7030

== ENCOUNTER 2022-10-01 17:13 | Emergency (ER) | payer OTHER, SELFPAY ==
[2022-10-01 17:20] VITALS: BP 108/69; PULSE 88; RESP 20; TEMP 37.6; O2SAT 100; BMI 27.4
--- NOTE | 2022-10-01 17:44 | ED.DIZZY ---
HPI - Dizziness General Chief Complaint: Dizziness/Vertigo Stated Complaint: Off Balance/Spinning/Nausia/Tired Time Seen by Provider: 10/01/22 17:16 History of Present Illness HPI Narrative: This 22-year-old female comes in reporting vertigo symptoms for the past week. She has some associated nausea and occasional vomiting. She does not report any neurologic deficit otherwise. She does state that she feels some general weakness but no unilateral loss of strength. She states that she feels some sense of vertigo almost always but is not showing any sign of deficit on initial exam. She does not have any nystagmus. She states that she had symptoms like this before when she had sepsis. She does not report any fevers or sign of infection at this time. Related Data Home Medications Medication Instructions Recorded Confirmed ferrous sulfate 325 mg (65 mg 325 mg PO DAILY 04/02/22 08/19/22 iron) tablet (Feosol) multivitamin (Multiple Vitamins 1 tab PO QDAY 06/24/22 08/19/22 tablet) Previous Rx's Medication Instructions Recorded cephalexin 500 mg capsule 500 mg PO TID 7 days #21 caps 10/01/22 meclizine 25 mg tablet 25 mg PO QID #20 tabs 10/01/22 ondansetron HCl 4 mg tablet 4 mg PO Q6H #20 tabs 10/01/22 Allergies Allergy/AdvReac Type Severity Reaction Status Date / Time amoxicillin Allergy Verified 10/01/22 17:20 ibuprofen Allergy Verified 10/01/22 17:20 octreotide Allergy Hives Verified 10/01/22 17:20 sulfamethoxazole Allergy nausea Verified 10/01/22 17:20 [From vomiting Sulfamethoxazole-Trimethoprim] trimethoprim Allergy nausea Verified 10/01/22 17:20 [From vomiting Sulfamethoxazole-Trimethoprim] aspirin AdvReac Verified 10/01/22 17:20 Review of Systems Status of ROS: Reports: 10 or more systems reviewed and unremarkable except as noted in History and below Narrative: Constitutional: No fevers, no weight gain or loss. Eyes: No discharge. No vision changes. HENT: No congestion, no sore throat, no ear pain. Cardiovascular: No chest pain, no palpitations. Respiratory: No shortness of breath, no wheezes, no cough. Gastrointestinal: No abdominal pain, no vomiting, no diarrhea. Genitourinary: No dysuria, no hematuria. Musculoskeletal: Normal range of motion. Skin: No rashes, no pruritis. Neurological: No sensory change, speech change. She does report vertigo symptoms and generalized weakness. Endo/Heme/Allergies: No bruising or bleeding. No polydipsia. Pysch: no suicidality, no anxiety, no insomnia. All other systems reviewed and are negative. PFSH PFSH Medical History Anemia Esophageal varices Hernia Thrombocytopenia Surgical History H/O hernia repair (~2002) History of endoscopy Family History Father DM (diabetes mellitus), type 2 Social History , [facility]) Highest level of school completed/degree received: high school graduate Smoking Status: Never smoker Do you use any of these nicotine containing products: None Second hand tobacco smoke exposure: No How often do you have a drink containing alcohol: never How often do you have six or more drinks on one occasion: Never AUDIT-C Alcohol total score: 0 Non-prescribed substance use: denies use Caffeine: Yes service: No Exam Narrative: Exam Narrative: Constitutional: Well-developed, well-nourished, no acute distress. HEENT: Normocephalic, atraumatic. Neck: Normal range of motion. Nontender. Supple. Heart: Regular. No murmurs. Normal rate. Intact distal pulses. Lungs: Clear to auscultation. No chest discomfort. No wheezes, rhonchi, or rales. Abdomen: Normal bowel sounds. Nontender. No rebound tenderness. Genitalia: Deferred. Back: No midline tenderness. Normal range of motion. Extremities: Normal range of motion. No injury. Skin: Intact. No rash. Warm. No erythema or pallor. Neurologic: No altered sensation. No weakness. Alert and oriented. Psychiatric: No suicidality. No anxiety or depression. No insomnia. Nursing notes and vitals signs are reviewed. Const: Vital Signs, click to edit/add: Vital Signs - 24 hr 10/01/22 17:20 10/01/22 19:08 Temperature 99.7 F H 99 F Pulse Rate [Apical ] 88 81 Respiratory Rate 20 24 Blood Pressure [Ri ght Upper Arm] 108/69 100/60 Pulse Oximetry 100 100 Oxygen Delivery Me thod Room Air Room Air Course Vital Signs Vital signs: Initial Vital Signs Temperature 99.7 F H 10/01/22 17:20 Temperature Source Temporal Artery Scan 10/01/22 17:20 Pulse Rate 88 10/01/22 17:20 Pulse Rhythm 10/01/22 17:20 Respiratory Rate 20 10/01/22 17:20 Blood Pressure 108/69 10/01/22 17:20 Blood Pressure Mean 82 10/01/22 17:20 Blood Pressure Position Supine 10/01/22 17:20 Pulse Oximetry 100 10/01/22 17:20 Oxygen Delivery Method 10/01/22 17:20 Vital Signs Temperature 99.7 F H 10/01/22 17:20 Pulse Rate 88 10/01/22 17:20 Respiratory Rate 20 10/01/22 17:20 Blood Pressure 108/69 10/01/22 17:20 Pulse Oximetry 100 10/01/22 17:20 Oxygen Delivery Method 10/01/22 17:20 Temperature 99 F 10/01/22 19:08 Pulse Rate 81 10/01/22 19:08 Respiratory Rate 24 10/01/22 19:08 Blood Pressure 100/60 10/01/22 19:08 Pulse Oximetry 100 10/01/22 19:08 Oxygen Delivery Method 10/01/22 19:08 MDM - Dizziness MDM Narrative Medical decision making narrative: This patient comes in with vertigo symptoms that have been present for the most of the past week or so. She has had vertigo symptoms in the past and it was occurring at a time when she was treated for sepsis. She arrives here with no fever or other symptoms triggering SIRS criteria for sepsis workup. Even so I did order an IV with fluids, Zofran, and meclizine. Lab results do returned with reassuring findings. Her lactate does return at 2.1. Again she is not tripping SIRS criteria for sepsis workup. She does not have any elevated white blood cell count in her blood but does have white blood cells in her urine at 5-10 per high-powered field. She may have a urinary tract infection though the this finding is not real strong. The patient is not in no acute distress and does not have headache. I did discuss the role of a CT scan of her head and in a process of shared decision making she declined this study. At the time of discharge the patient appears safe for outpatient management. The treatment plan is reviewed along with written and verbal return precautions. Reasons to return and the importance of close followup were also reviewed. She received prescriptions for Keflex, Zofran, and meclizine. Lab Data Labs: Lab Results 10/01/22 10/01/22 10/01/22 Range/Units 18:00 18:00 18:19 Sodium 140 (135-149) mmol/L Potassium 3.5 L (3.6-5.1) mmol/L Chloride 110 (96-114) mmol/L Carbon Dioxide 24 (20-32) mmol/L BUN 15 (5-24) mg/dL Creatinine 0.6 (0.5-1.5) mg/dL Estimated Creat Clear 110.04 Estimated GFR 129 ml/min Glucose 128 H (60-115) mg/dL Lactate 2.1 H (0.5-1.9) mmol/L Calcium 8.3 L (8.4-10.6) mg/dL C-Reactive Protein < 0.5 L (0.5-1.0) mg/dL Urine Color Yellow (Yellow) Urine Appearance Slightly Cloudy A (Clear) Urine pH 6.5 (5.0-8.5) Ur Specific [place] 1.020 (1.000-1.030) Urine Protein Negative (Negative) Urine Glucose (UA) Negative (Negative) Urine Ketones Negative (Negative) Urine Blood Negative (Negative) Urine Nitrite Negative (Negative) Urine Bilirubin Negative (Negative) Urine Urobilinogen 2.0 A (0.2-1.0) Ur Leukocyte Esterase Trace A (Negative) Urine RBC 2-5 A (0-2) Urine WBC 5-10 A (0-5) Ur Squamous Epith Cells Few (None-Few) Urine Bacteria Few A (None) Discharge Plan Discharge Clinical Impression: Urinary tract infection, Acute vestibular neuritis Patient Disposition: Home, Self-Care Condition: Stable Additional Instructions: Take medications as prescribed and needed. Follow up with MD or return if worsening. Prescriptions: New meclizine 25 mg tablet 25 mg PO QID Qty: 20 0RF cephalexin 500 mg capsule 500 mg PO TID 7 Days Qty: 21 0RF ondansetron HCl 4 mg tablet 4 mg PO Q6H Qty: 20 0RF No Action multivitamin [Multiple Vitamins] Tablet 1 tab PO QDAY ferrous sulfate [Feosol] 325 mg (65 mg iron) tablet 325 mg PO DAILY Follow Up/Referrals: Kaleb Crawford MD [Primary Care Provider] - Stand Alone Forms: [employer] Info Instructions
[2022-10-01 18:29] LABS: Lactate* 2.1 mmol/L (0.5-1.9)
[2022-10-01 18:29] LABS: Appearance Urine Slightly Cloudy (Clear); Bilirubin Urine Negative (Negative); Blood Urine Negative (Negative); Color Urine Yellow (Yellow); Glucose Urine Negative (Negative); Ketones Urine Negative (Negative); Leukocyte Esterase Urine Trace (Negative); Nitrite Urine Negative (Negative); Protein Urine Negative (Negative); pH Urine 6.5 (5.0-8.5)
[2022-10-01 18:31] LABS: Basophils Percent Auto 0.3 % (0.0-3.0); Hematocrit 40.6 % (33.0-51.0); Hemoglobin* 13.9 gm/dL (12.0-16.0); Lymphocytes Percent Auto 23.2 % (20-44); Mean Corpuscular HGB Conc 34 gm/dL (32-36); Mean Corpuscular Hemoglobin 30 pg (26-34); Mean Corpuscular Volume 87 fL (80-100); Monocytes Percent Auto 6.1 % (0.0-11.0); Neutrophils Percent Auto 68.4 % (42.0-72.0); RDW Coefficient of Variation % 14.5 % (11.5-15.5); Red Blood Count 4.65 m/uL (4.00-5.20); White Blood Count* 3.45 K/uL (4.50-11.00)
[2022-10-01] MEDS: 0.9 % SODIUM CHLORIDE 1000 ml 1,000 ML IV (18:31)
[2022-10-01] MEDS: ONDANSETRON 2 MG/ML inj 4 MG IVP (18:31)
[2022-10-01] MEDS: MECLIZINE HCL 25 MG TABLET PO (18:31)
[2022-10-01 18:34] LABS: Bacteria Urine Few; Squamous Epithelial Cell Urine Few (None-Few)
[2022-10-01 18:49] LABS: Chloride* 110 mmol/L (96-114); Sodium* 140 mmol/L (135-149)
[2022-10-01 18:50] LABS: Potassium* 3.5 mmol/L (3.6-5.1)
[2022-10-01 18:52] LABS: Creatinine* 0.6 mg/dL (0.5-1.5); Est. Creatinine Clearance* 110.04; Estimated Glomerular Filt Rate 129 ml/min
[2022-10-01 18:53] LABS: Blood Urea Nitrogen* 15 mg/dL (5-24); Calcium* 8.3 mg/dL (8.4-10.6); Carbon Dioxide* 24 mmol/L (20-32); Glucose* 128 mg/dL (60-115)
[2022-10-01 18:56] LABS: C Reactive Protein* < 0.5 mg/dL (0.5-1.0)
[2022-10-01 19:08] VITALS: BP 100/60; PULSE 81; RESP 24; TEMP 37.2; O2SAT 100
[2022-10-01 19:12] LABS: PCR FLU A Negative PCR FLU A (Negative); PCR FLU B Negative PCR FLU B (Negative); PCR RSV Negative PCR RSV (Negative)
[2022-10-01 19:22] LABS: Platelet Count* 47 K/uL (140-440); Slide Review Acceptable Review (Acceptable); Slide Review Reflex Yes
--- NOTE | 2022-10-01 19:25 | ED.NURSE ---
MD Romero notified of critical platelet value 47.
[2022-10-01 19:28] LABS: SARS PCR* Negative SARS-CoV-2 (Negative)
== END 2022-10-01 19:39 | disposition home or self-care (01) ==
PROVIDERS: Emergency Provider Emergency Medicine Emergency Medical Services; PCP Surgery
DX: N39.0 Urinary tract infection, site not specified (principal); H81.20 Vestibular neuronitis, unspecified ear
CPT/HCPCS: 36415; 80048; 81001; 83605; 85025; 86140; 87086; 87502; 87634; 87635; 96374; 99284; A9270; J2405; J7030

== ENCOUNTER 2023-03-12 13:54 | Emergency (ER) | payer OTHER, SELFPAY ==
[2023-03-12 14:02] VITALS: BP 106/67; PULSE 85; RESP 18; TEMP 36.5; O2SAT 96; BMI 30.2
--- NOTE | 2023-03-12 15:57 | ED.GENADULT ---
HPI - General Adult General Chief complaint: Skin/Abscess/Foreign Body Stated complaint: Fell a week ago, L leg swelling Time Seen by Provider: 03/12/23 15:45 Source: patient Mode of arrival: ambulatory Limitations: no limitations History of Present Illness HPI narrative: 22-year-old female coming in today complaining of pain in her left lower extremity. States that approximately 1 week ago she fell through some stairs with verbal left leg. The stare essentially scraped her leg as the leg went through the stair. She denies other injury but states that in the last week she has noticed increased bruising and the pain has not gotten any better. She is able to walk. She carries of her daily activities, but is uncomfortable. She denies any shortness of breath or chest pain. No other significant injury from that fall. Related Data Home Medications Medication Instructions Recorded Confirmed ferrous sulfate 325 mg (65 mg 325 mg PO DAILY 04/02/22 08/19/22 iron) tablet (Feosol) multivitamin (Multiple Vitamins 1 tab PO QDAY 06/24/22 08/19/22 tablet) Previous Rx's Medication Instructions Recorded cephalexin 500 mg capsule 500 mg PO TID 7 days #21 caps 10/01/22 meclizine 25 mg tablet 25 mg PO QID #20 tabs 10/01/22 ondansetron HCl 4 mg tablet 4 mg PO Q6H #20 tabs 10/01/22 Allergies Allergy/AdvReac Type Severity Reaction Status Date / Time amoxicillin Allergy Verified 10/01/22 17:20 ibuprofen Allergy Verified 10/01/22 17:20 octreotide Allergy Hives Verified 10/01/22 17:20 sulfamethoxazole Allergy nausea Verified 10/01/22 17:20 [From vomiting Sulfamethoxazole-Trimethoprim] trimethoprim Allergy nausea Verified 10/01/22 17:20 [From vomiting Sulfamethoxazole-Trimethoprim] aspirin AdvReac Verified 10/01/22 17:20 Review of Systems Status of ROS: Reports: 10 or more systems reviewed and unremarkable except as noted in History and below [facility] Medical History Hernia ?K46.9 - Unspecified abdominal hernia without obstruction or gangrene (ICD-10) Esophageal varices ?I85.00 - Esophageal varices without bleeding (ICD-10) Thrombocytopenia ?D69.6 - Thrombocytopenia, unspecified (ICD-10) Anemia ?D64.9 - Anemia, unspecified (ICD-10) Surgical History History of endoscopy ?Z98.890 - Other specified postprocedural states (ICD-10) H/O hernia repair (~2002) ?Z98.890 - Other specified postprocedural states (ICD-10) ?Z87.19 - Personal history of other diseases of the digestive system (ICD-10) Family History Father DM (diabetes mellitus), type 2 Social History Highest level of school completed/degree received: high school graduate Smoking Status: Never smoker Do you use any of these nicotine containing products: None Second hand tobacco smoke exposure: No How often do you have a drink containing alcohol: never How often do you have six or more drinks on one occasion: Never AUDIT-C Alcohol total score: 0 Non-prescribed substance use: denies use Caffeine: Yes service: No Exam Narrative: Exam Narrative: Well-nourished well-developed patient in no acute distress. Alert and oriented. Answers questions appropriately. Mood and affect are appropriate. Thoughts are goal oriented and rational. No tangential or magical thinking noted. Patient speaks in full sentences without needing to catch her breath. HEENT: Normocephalic atraumatic. Pupils are equally round reactive to light. Extraocular muscles are intact. Conjunctivae are moist without any icterus noted. Extremities: Patient has dark ecchymosis medially on the lower leg from the knee to about the mid calf. Closer to the knee she has an area that is firm consistent with a hematoma. The leg skin is warm and and dry. Skin is intact. She has normal DP and PT pulses. The leg appears to be vascularly and neurologically intact. Normal reflexes at the knee without pain. There is no pallor noted. No pain out of proportion to the injury. Const: Vital Signs, click to edit/add: Vital Signs - 24 hr 03/12/23 14:02 Temperature 97.7 F Pulse Rate [Pulse Oximeter] 85 Respiratory Rate 18 Blood Pressure [Ri ght Upper Arm] 106/67 Pulse Oximetry 96 Oxygen Delivery Me thod Room Air Course Vital Signs Vital signs: Initial Vital Signs Temperature 97.7 F 03/12/23 14:02 Temperature Source Temporal Artery Scan 03/12/23 14:02 Pulse Rate 85 03/12/23 14:02 Pulse Rhythm Regular 03/12/23 14:02 Respiratory Rate 18 03/12/23 14:02 Blood Pressure 106/67 03/12/23 14:02 Blood Pressure Mean 80 03/12/23 14:02 Blood Pressure Position Sitting 03/12/23 14:02 Pulse Oximetry 96 03/12/23 14:02 Oxygen Delivery Method Room Air 03/12/23 14:02 Vital Signs Temperature 97.7 F 03/12/23 14:02 Pulse Rate 85 03/12/23 14:02 Respiratory Rate 18 03/12/23 14:02 Blood Pressure 106/67 03/12/23 14:02 Pulse Oximetry 96 03/12/23 14:02 Oxygen Delivery Method Room Air 03/12/23 14:02 Temperature 97.7 F 03/12/23 14:02 Pulse Rate 85 03/12/23 14:02 Respiratory Rate 18 03/12/23 14:02 Blood Pressure 106/67 03/12/23 14:02 Pulse Oximetry 96 03/12/23 14:02 Oxygen Delivery Method Room Air 03/12/23 14:02 Medical Decision Making MDM Narrative Medical decision making narrative: 22-year-old female with a hematoma and ecchymosis status post injury. We discussed that this should heal on its own but will take time. We discussed warm compresses, anti-inflammatories and elevation. We discussed reasons for follow-up which would include worsening pain, pallor or loss of pulses. Patient was in agreement and had no other questions. Discharge Plan Discharge Clinical Impression: Hematoma of leg Patient Disposition: Home, Self-Care Condition: Stable Additional Instructions: Your exam today reveals a hematoma of the leg which is a blood collection underneath the skin. This is often seen after trauma or injury. The body will slowly reabsorb this blood. I recommend anti-inflammatories or Tylenol as needed for discomfort, elevating the leg when possible and putting a warm compress on the leg. If you notice that your leg is pale or the pain becomes so intense that you cannot control it, you should return to the ER. Otherwise, expected to take several weeks for the leg to heal completely. Prescriptions: No Action multivitamin [Multiple Vitamins] Tablet 1 tab PO QDAY meclizine 25 mg tablet 25 mg PO QID Qty: 20 0RF cephalexin 500 mg capsule 500 mg PO TID 7 Days Qty: 21 0RF ondansetron HCl 4 mg tablet 4 mg PO Q6H Qty: 20 0RF ferrous sulfate [Feosol] 325 mg (65 mg iron) tablet 325 mg PO DAILY Follow Up/Referrals: Kaleb Crawford MD [Primary Care Provider] - Stand Alone [facility]: [facility] Info Instructions
== END 2023-03-12 16:26 | disposition home or self-care (01) ==
PROVIDERS: Emergency Provider Family Medicine; PCP Surgery
DX: S80.12XA Contusion of left lower leg, initial encounter (principal)
CPT/HCPCS: 99282; 99283

== ENCOUNTER 2023-07-14 13:23 | Outpatient (CLI) | payer OTHER, SELFPAY ==
[2023-07-14 17:23] LABS: Chlamydia DNA Amplified* NOT DETECTED (No Detected); GC DNA Amplified* NOT DETECTED (No Detected)
== END 2023-07-14 13:24 | disposition home or self-care (01) ==
PROVIDERS: PCP Surgery; Visit Provider Registered Nurse
DX: Z11.3 Encounter for screening for infections with a predominantly sexual mode of transmission (principal)
CPT/HCPCS: 84132; 87491; 87591

== ENCOUNTER 2023-08-06 15:47 | Outpatient (CLI) | payer OTHER, SELFPAY ==
--- NOTE | 2023-08-06 16:00 | CRLHL7_ITS ---
For Patients: As a result of the Century Cures Act, medical imaging exams and procedure reports are released immediately into your electronic medical record. You may view this report before your referring provider. If you have questions, please contact your health care provider. CLINICAL HISTORY: PELVIC PAIN, IUD PLACEMENT TECHNIQUE: 2D contreras scale and color Doppler images were acquired of the pelvis using a transvaginal approach. Spectral Doppler ultrasound of both ovaries also performed. FINDINGS: On transvaginal imaging, the myometrium has a normal uniform echotexture. The uterus measures 7.0 x 2.4 x 3.1 cm. The endometrial lining appears normal and measures 5 mm in thickness. IUD is present in good position within the endometrial canal. The left ovary measures 3.1 x 2.0 x 2.6 cm in size and the right ovary measures 3.1 x 1.8 x 2.4 cm. The ovaries demonstrate normal arterial and venous blood flow on color Doppler analysis. Multiple ovarian follicles are present bilaterally, particularly on the left. There are no suspicious fluid collections within the cul-de-sac. Normal spectral Doppler evaluation of both ovaries. No ovarian torsion. IMPRESSION: Normal position of the IUD within the endometrial canal. Dictated by Osiel Blancas MD @ 08/10/2023 9:14:19 AM (Electronically Signed)
== END 2023-08-06 15:48 | disposition home or self-care (01) ==
PROVIDERS: PCP Surgery; Visit Provider Registered Nurse
DX: R10.2 Pelvic and perineal pain (principal)
CPT/HCPCS: 76830; 84132; 87086; 93976

== ENCOUNTER 2024-12-29 09:51 | Outpatient (CLI) | payer OTHER, SELFPAY ==
[2024-12-29 18:29] LABS: Bacterial Vaginosis* Negative (Negative); Candida glab/krus NOT DETECTED (No Detected); Candida species NOT DETECTED (No Detected); Trichomonas vaginalis NOT DETECTED (No Detected)
[2024-12-29 18:59] LABS: Chlamydia DNA Amplified* NOT DETECTED (No Detected); GC DNA Amplified* NOT DETECTED (No Detected)
== END 2024-12-29 09:52 | disposition home or self-care (01) ==
PROVIDERS: PCP Surgery; Visit Provider Registered Nurse
DX: Z11.3 Encounter for screening for infections with a predominantly sexual mode of transmission (principal); R32 Unspecified urinary incontinence; R82.90 Unspecified abnormal findings in urine; N89.8 Other specified noninflammatory disorders of vagina
CPT/HCPCS: 81513; 87086; 87481; 87491; 87591; 87661

== ENCOUNTER 2025-04-09 12:14 | Emergency (ER) | payer OTHER, SELFPAY ==
--- OUTSIDE RECORDS SUMMARY | 2013-11-28 09:27 | XMS_ITS | Continuity of Care Document ---
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 Name Role Phone Unavailable Unavailable Unavailable Allergies, Adverse Reactions, Alerts Substance Reaction Status Criticality aspirin Adverse reaction Active No Informat ion ibuprofen Adverse reaction Active No Informat ion Medications Medication Instructions Dosage Effective Dates (start - stop) Status Comments Tylenol 325 mg Tab as needed for pain - Active Tums 300 mg (750 mg) Chewable Tab as needed - Active MULTIVITAMINS (unknown strength) Take one tablet by mouth daily Not Available - Active iron 325 mg (65 mg iron) Tab Take one tablet by mouth daily - Active Procedures Procedure Date Init Inpt Cons New/est Mod-hi 2 Subsqt Hosp-da E&m Minr Compl 2 Ugi Endo; Dx W/wo Collec Specm 11 Offic/outpt E&m Estab Low-mod 0 G8447 Offic/outpt E&m Estab Mod-hi 2 09 G8447 Ugi Endo; W/band Lig Varices Ugi Endo; W/band Lig Varices Offic/outpt E m Estab Mod Advance Directives Directive Yes / No Effective Date File Name No Information Encounters Encounter Description Practice Location Reason(s) For Visit Diagnoses Date Provider Providers Copied on Encounter [facility], [address] [address], [place], [id number], [place] tel:[phone] [facility] No Information 4 No Information Init Inpt Cons New/est Mod-hi [facility], [address] [address], [place], [id number], [place] tel:[phone] [facility] No Information 0 2 No Information Referring Provider: Marleny Kang, [address], [place], [address]. tel:[phone] [facility], [address] [address], [place], [id number], [place] tel:[phone] [facility] Procedures No Information 1 No Information Referring Provider: Marleny Kang, [address], [place], [address]. tel:[phone] Offic/outpt E&m Estab Low-mod [facility], [address] [address], [place], [id number], [place] tel:[phone] [facility] Follow-up of portal hypertension (chief complaint)Lef t sided abdominal pain (chief complaint) Portal Hypertension 0 No Information Referring Provider: Marleny Kang, [address] [facility], [place], [address]. tel:[phone] Offic/outpt E&m Estab Mod-hi 2 [facility], [address] [address], [place], [id number], [place] tel:[phone] [facility] Esophageal Varices (chief complaint) Gastroduodena l Dis Nec 9 No Information [facility], [address] [address], [place], [id number], [place] tel:[phone] [facility] No Information 7 No Information Referring Provider: Tc Diaz, [address], [place], [address]. tel:[phone] [facility], [address] [address], [place], [id number], [place] tel:[phone] [facility] No Information 6 No Information Referring Provider: Tc Gardner MD M, [address], [place], [address]. tel:[phone] Offic/outpt E m Estab Mod [facility], [address] [address], [place], [id number], [place] tel:[phone] [facility] Portal HypertensionV omiting Alone 5 No Information Referring Provider: Listed Not. Family History Family Member Type Diagnosis Age At Onset Maternal uncle Problem (finding) Maternal histo ry of diabetes mellitus First degree family history Problem (finding) No history of Ulcerative Colitis First degree family history Problem (finding) GERD First degree family history Problem (finding) No history of Colon Rectal Cancer First degree family history Problem (finding) No histo ry of Crohn's First degree family history Problem (finding) No Family history of No history of Colon Polyps Maternal grandfather Problem (finding) Maternal history of diabetes mellitus Payers Payer name Insurance type Covered alliance party ID Authoriza tion(s) No Information Social History Type Description Quantity Date Captured Comments Sex Female Smoking Status No Information Chief Complaint And Reason For Visit No Information Reason For Referral Reason For Referral No Information History Of Present Illness Encounter Date Complaint History Of Prese nt Illness No Information Functional Status Date Functional Assessmen t No Information Instructions Date Instruction Additional Infor mation No Information Assessments Type Assessment Date No Information Patient Care Teams Name Effective Dates (start - stop) Status Members No Information
--- OUTSIDE RECORDS SUMMARY | 2013-11-28 09:27 | XMS_ITS | Continuity of Care Document ---
Author Organization [facility] Address [address] [address] [place] [address] Phone Care Team Providers Care Superintendent Police Name Role Phone Unavailable Unavailable Unavailable Allergies, [...] Diagnoses Date Provider Providers Copied on Encounter [facility], [address] [address], [place], [id number], [place] tel:[phone] [facility] No Information 4 No Information Init Inpt Cons New/est Mod-hi [facility], [address] [address], [place], [id number], [place] tel:[phone] [facility] No Information 0 2 No Information Referring Provider: Marleny Kang, [address], [place], [address]. tel:[phone] [facility], [address] [address], [place], [id number], [place] tel:[phone] [facility] Procedures No Information 1 No Information Referring Provider: Marleny Kang, [address], [place], [address]. tel:[phone] Offic/outpt E&m Estab Low-mod [facility], [address] [address], [place], [id number], [place] tel:[phone] [facility] Follow-up of portal hypertension (chief complaint)Lef t sided abdominal pain (chief complaint) Portal Hypertension 0 No Information Referring Provider: Marleny Kang, [address] [facility], [place], [address]. tel:[phone] Offic/outpt E&m Estab Mod-hi 2 [facility], [address] [address], [place], [id number], [place] tel:[phone] [facility] Esophageal Varices (chief complaint) Gastroduodena l Dis Nec 9 No Information [facility], [address] [address], [place], [id number], [place] tel:[phone] [facility] No Information 7 No Information Referring Provider: Tc Diaz, [address], [place], [address]. tel:[phone] [facility], [address] [address], [place], [id number], [place] tel:[phone] [facility] No Information 6 No Information Referring Provider: Tc Gardner MD M, [address], [place], [address]. tel:[phone] Offic/outpt E m Estab Mod [facility], [address] [address], [place], [id number], [place] tel:[phone] [facility] Portal HypertensionV omiting Alone 5 [...] mellitus Payers Payer name Insurance type Covered constitution party ID Authoriza tion(s) No Information Social [...]
--- OUTSIDE RECORDS SUMMARY | 2025-04-09 12:15 | XMS_ITS | Clinical Summary ---
Author Organization [facility] Address [address] [place] [id number] Care Team Providers Care Gut Sorter Name Role Phone Noa Knowles MD Primary Care Provider [phone] Woo Lynne MD Unavailable [phone] Allergies Active Allergy Reactions Criticality Noted Date Comments Aspirin, Buffered Bleeding 04/12/2007 Amoxicillin-Pot Clavulanate Rash 10/19/2006 Ibuprofen Bleeding 04/12/2007 Octreotide Other reaction(s): hives, rash Sulfamethoxazole-Trimet hoprim Nausea And Vomiting 10/19/2006 Trimethoprim *Unknown 04/02/2022 Medications multivitamin (CHEWABLE MULTI VITAMIN) Chew Take 1 tablet by mouth once daily. 100 tablet 3 12/12/2010 Active ferrous sulfate 325 mg delayed release tablet Take 1 Tablet (325 mg) by mouth once daily. 0 11/18/2021 Active lansoprazole (PREVACID) 30 mg capsule Take 30 mg by mouth once daily if needed for GI Upset or Heartburn. Active omeprazole 40 mg Delayed-Release capsuleIndicati ons:Gastric reflux TAKE 1 CAPSULE BY MOUTH TWICE A DAY 180 Capsule 1 02/08/2025 Active Active Problems Problem Noted Date Diagnosed Date [facility] Encounter for preconception consultation Overview (04/02/2023): [facility] PRECONCEPTION CONSULTATION ON 04/07/23 REASON FOR CONSULT: risks of chronic liver disease, splenomegaly, thrombocytopenia in TODAY'S APPOINTMENT: MD Consultation PRIMARY DIAGNOSIS: 22 y.o. Cavernous transformation of the portal vein Portal hypertension Splenomegaly Focal nodular hyperplasia of liver Chronic thrombocytopenia Hyperprolactinemia Hyperandrogenism PCOS- had nexplanon removed 12/02/21, no period since, no w/active trying. REFERRING PHYSICIAN/PHONE/LAST UPDATE: Noa Knowles MD [facility] [phone] Primary MD approves scheduling of recommended ultrasounds/testing: Yes SPECIALISTS/CONSULTS: Include: Specialty MD Clinic Name Phone# [place] and ADDED TO PATIENT CARE TEAM Yes Endocrinology: Dr. Gabino Bush, [facility], [place] 11/18/21 Gastroenterology: Dr. Woo Lynne, [facility], [place] 07/10/21 GENETICS: PROCEDURES: MRI Liver 01/14/22 IMPRESSION: 1. At least 6 lesions compatible with focal nodular hyperplasia the largest measuring up to 2.7 cm in hepatic segment 2. 2. Unchanged cavernous transformation of the main portal vein with splenomegaly and prominent splenorenal shunting. CT Liver 10/16/21 IMPRESSION: 1. Chronic portal vein thrombosis with cavernous transformation. There is resultant marked splenomegaly and large collateral vessels. 2. Enhancing lesion in posterior right lobe of the liver, segment VII, may represent adenoma or focal nodular hyperplasia. Recommend follow-up with MRI in 6 months to confirm stability. PERTINENT LABS: Platelets 03/25/23 45 HgbA1c 03/25/23 4.0 Bilirubin 03/25/23 1.7 12/30/21: Testosterone total 252.5; testosterone free 5.14; Androstenedione 678 PERTINENT MEDS: Iron PLAN OF CARE: Hyperprolactinemia 03/25/2023 Pyelonephritis 04/02/2022 Gram-negative bacteremia 04/02/2022 Cavernous transformation of portal vein 04/02/20 Focal nodular hyperplasia of liver 04/02/2022 ASCUS with positive high risk HPV cervical 03/04 Overview (04/06/2023): 02/2021 ASCUS/HPV+, HPV 16/18 negative 03/2023 NIL Plan: Pap test due in 1 year Hyperopic astigmatism of both eyes 09/05/2019 Hyperandrogenism 01/17/2019 Overview (01/07/2022): Menarche at age 13. Cycles infrequent, Hirsutism around age 17. No galactorrhea. Testosterone 151, 357 (2019), Estradiol 90, LH 12.4, FSH 3.6 (2018), Prolactin 17-32, 17 OHP 14, 11AM insulin level 54, 25 Pelvic ultrasound showed a number of follicles, otherwise no mass. Rx Depo Provera x 3 (age 14). Oral contraceptives (couldn't tolerate). Nexplanon started 12/2021: A1c 3.9%. Fasting glucose 77, Insulin 21. Prolactin 16. SHBG 64 (24- 122). Testosterone high at 252 (10-55), Free Testosterone 5.15 (0.1-0.85). Androstenedione 678 (41-262 ng/dl). 17 OHP 144, Sleep disorder 12/25/2014 Unspecified constipation 08/29/2008 Thrombocytopenia, unspecified 01/27/2008 Anxiety state, unspecified 01/04/2007 Portal hypertension 10/19/2006 Overview (10/19/2006): Dr Paul @ [facility]. Esophageal varices with bleeding(456.0) 10/20/19 07 Overview (10/19/2006): Banded 6/05 and 7/05 Splenomegaly 10/19/2006 Other and unspecified coagulation defects 2006 Overview (03/24/2011): Dr. Rutherford Resolved Problems Problem Noted Date Diagnosed Date Resolved Date Irregular periods 10/25/2015 08/06/2020 Portal hypertension 03/11/2011 09/11/19 12 Other and unspecified coagulation defects 10/19/2006 01/27/2008 Other and unspecified capillary diseases 10/19/2006 08/06/2020 Encounters Date Type Department Care Team Description 02/06/2025 Refill [facility] [address] [place] [address] Noa Knowles MD Refill Request (Omeprazole) from Last 3 Months Immunizations Immunization Administration Dates Next Due AMB Influenza, IIV3 (Age >=3 years) Preserve Free (Flu Clinic Only) 06/11/2011 AMB Influenza, IIV4 PF (=>6 mos Flulaval,Fluzone Fluarix)(Flu Clinic Only) 05/04/2014 BCG Vaccine (Percutaneous) 1999 COVID-19 vaccine (PricePanda-Bio NTech 30mcg/0.3mL) PF, MDV 03/21/2021 DTaP 05/20/2006, 5,09/16/2001,03/12,01/09/2000,1999 HPV 9 (Gardasil 9) 11/02/2013,07/04/2013 Hep B (Hepatitis B (Adult) R ecombinant Adjuvanted) 04/21/2021 Hepatitis A (Peds) 07/04/2013,03/24/2011 Hepatitis B (Adult) 04/21/2021 Hepatitis B (Peds) 04/09/2017, 0,01/09/2000,11/09 Hib Conjugate, Unspecified 03/12/2000,01/09/2000 ,1999 Human Papilloma Virus Vaccine 11/02/2013, 013,03/24/2011 Inactivated Polio Vaccine 06/21/2018,11/1999,01/03/2000,11/09,1999 Influenza A (H1N1), Inactiva lonnie (Age >=3 Years) 07/26/2009,06/28/2009 Influenza Virus, Unspecified 07/04/2013,07/15/20 12 Influenza, IIV3 (Age >=3 years) 07/04/20 13,07/15/2012,06/03/2009,05/11,06/14/2007,05/20/2006 Influenza, IIV4 05/06/2020, 9,06/21/2018,10/15,05/04/2014 MENINGOCOCCAL VACCINE 2 VIAL 2MO-55YO (MENVEO) 10/15/2017,03/24/2011 MMR 05/20/2006,03/26/2005,09/14/2000 Meningococcal Vaccine (Menactra) 10/15/2017 Td (Age >=7 Years) 03/04/2021 Tdap 03/24/2011 Family History Medical History Relation Name Comments Good Health Father Good Health Mother Anesthesia Problem No Family History Diabetes No Family History Heart Disease No Family History Hypertension No Family History Relation Name Status Comments Father Mother Social History Tobacco Use Types Packs/Day Years Used Date Smoking Tobacco: Never Smokeless Tobacco: Never Tobacco Cessation:Counseling Given: Yes Comments:no exposure Alcohol Use Standard Drinks/Week Comments Not Currently 0 (1 standard drink = 0.6 oz pur e alcohol) rare PHQ-2 Answer Date Recorded PHQ-2 TOTAL SCORE 2 03/25/2023 Social Connections Answer Date Recorded Do you often feel lonely or isolated from those around you? 0 11/09/2024 Financial Resource Strain Answer Date R ecorded Difficulty of Paying Living Expenses 2 11/09/2024 Difficulty of Paying Living Expenses 1 11/09/2024 Food Insecurity Answer Date Recorded Do you worry your food will run out before you are able to buy more? 2 11/09/2024 Transportation Needs Answer Date Record ed Does lack of transportation keep you from medica l appointments? 1 11/09/2024 Does lack of transportation keep you from work, meetings or getting things that you need? 1 11/09/2024 Housing Stability Answer Date Recorded What is your housing situation today? 1 11/09/2024 Utilities Answer Date Recorded Do you have trouble paying f or utilities (for example, heat, electricity, water, phone)? 2 11/09/2024 Comments No Sex and Gender Information Value Date Recorded Sex Assigned at Not on file Legal Sex Female 5:49 AM UNDERGROUND ELECTRICIAN Gender Identity Not on file Sexual Orientation Not on file Obstetrics History Para Term AB IAB SAB Ectopic Multiple Livin g Live Births 0 0 0 0 0 0 0 0 0 0 0 Last Filed Vital Signs Vital Sign Reading Time Taken Comments Blood Pressure 106/70 11/09/2024 9:53 AM CDT Pulse 90 11/09/2024 9:53 AM CDT Temperature 36.8 C (98.3 F) 05/19/2022 10:40 PM CDT Respiratory Rate 16 05/19/2022 10:40 PM CDT Oxygen Saturation 99% 11/09/2024 9:53 AM CDT Inhaled Oxygen Concentration - - Weight 90 kg (198 lb 6.4 oz) 11/09/2024 9:53 AM CDT Height 154.9 cm (5' 1) 11/09/2024 9:53 AM CDT Body Mass Index 37.49 11/09/2024 9:53 AM CDT Plan of Treatment Health Maintenance Due Date Last Done Comments Pneumococcal series for age 6-49 (1 of 2 - PCV) 2018 Depression screening for age 12+ 03/25/2024 03/25/2023, 08/06/2020, 07/15/2020, Additional history exists Pap test for age 21-65 03/25/2024 3, 03/04/2021, 03/04/2021 COVID-19 vaccine series ( season) 2024 04/11/2021, 03/21/2021 Influenza Vaccine (#1) 2025 0, 05/08/2019, 06/21/2018, Additional history exists BMI (ht and wt on same day) for age 18+ 11/09/2025 11/09/2024, 03/25/2023, 05/26/2021, Additional history exists Tetanus booster 03/04/2031 03/04/2021, 03/24/2011 RSV vaccine for adults or (1 - 1-dose 75+ series) 2074 HPV series for age 9-26 Completed 11/03/19 14, 11/02/2013, 07/04/2013, Additional history exists Hepatitis B series for 19+ Completed 04/21, 04/21/2021, 04/09/2017, Additional history exists Hepatitis C screening for ag e 18-79 Completed 08/15/2021 HIV for age 15-65 Completed 03/25/2023, 08/15/2021 Procedures Procedure Name Priority Date/Time Associated Diagnosis Comments LC HIV-1/O/2, 4TH GENERATION Routine 03/25/2023 10:30 AM CDT Routine screening for STI (sexually transmitted infection) ENERGY CONSERVATION REPRESENTATIVE THIN PREP PAP SCREEN IMAGED Routine 03/25/2023 10:08 AM CDT Screening for cervical cancer ANTI HCV Routine 08/15/2021 2:19 PM UNDERGROUND ELECTRICIAN Screen for STD (sexually transmitted disease) from Last 3 Months or Most Recently Relevant to Health Maintenance Results * LC HIV-1/O/2, 4TH GENERATION (03/25/2023 10:30 AM CDT) HIV Scr 4th Gen Non Reactive Non Reactive 03/28/2023 10:07 AM CDT ESOTERIC TESTING ([facility]) Comment: HIV Negative HIV-1/HIV-2 antibodies and HIV-1 p24 antigen were NOT detected. There is no laboratory evidence of HIV infection. Blood BLOOD SPECIMEN / Unknown Venipuncture / Unknown 03/25/2023 10:30 AM CDT 03/25/2023 10:35 AM CDT Narrative [facility] ([facility]) - 03/28/2023 10:07 AM CDT Performed at: [address] [place] [id number] Rn Internal Medicine: Rajesh Edmonds MD, Phone: [phone] us Noa Knowles MD LABORATORY Final Resul t ESOTERIC TESTING ([facility]) [address] [place] [address] * ENERGY CONSERVATION REPRESENTATIVE THIN PREP PAP SCREEN IMAGED [[id number]] (03/25/2023 10:08 AM CDT) Pathologist [facility] Case Report Gynecologic Cytology Report Case: [id number] Authorizing Provider: Noa Knowles MD Collected: 03/25/2023 1008 Ordering Location: [facility] Received: 03/25/2023 1027 Clinic First Screen: Marlene Goldstein Rescreen: Barbara Mauro Specimen: ENERGY CONSERVATION REPRESENTATIVE ThinPrep Vial Screening, Cervical 04/05/2023 9:11 AM CDT [facility] LABORATORY-C ENTRAL LABORATORY INTERPRETATION/ RESULT NEGATIVE FOR INTRAEPITHELIAL LESION OR MALIGNANCY (NIL) (none) 04/05/2023 9:11 AM CDT [facility] LABORATORY- ENTRAL LABORATORY at 0911 CDT SPECIMEN ADEQUACY Satisfactory for evaluation No endocervical component seen 04/05/2023 9:11 AM CDT [facility]- ENTRAL LABORATORY Date of LMP unknown, hormonally suppressed 04/05/2023 9:11 AM CDT [facility] Last Pap Date 03/04/21 04/05/2023 9:11 AM CDT [facility] ENTRAL LABORATORY Last Pap Result ASCUS 9:11 AM CDT [facility] ENTRAL LABORATORY Abnormal Pap or [place] Bx in last 5 years No 04/05/2023 9:11 AM CDT [facility] ENTRAL LABORATORY Menstrual Status Irregular Periods 04/05/2023 9:11 AM CDT [facility] ENTRAL LABORATORY [place] Bx Done Today No 04/05/2023 9:11 AM CDT [facility] ENTRAL LABORATORY Additional Information 02/2021 pap with ASCUS + high risk HPV 04/05/2023 9:11 AM CDT [facility] ENTRAL LABORATORY Comment: Cytology is screened at [facility] Central Laboratory - [address] [address] and [facility] - [address] [place] [address] and [facility] - [address] [place] [address] Interpreted at [facility] Laboratory - [address], [place] [address] Automated Review Successful 04/05/2023 9:11 AM CDT [facility] ENTRAL LABORATORY Comment:Specimen processed s uccessfully by automated mammographer device, ThinPrep Imaging System, [employer] Note The pap test is a screening technique, not a diagnostic procedure. It is used primarily to screen for squamous cancers and precursor lesions. Published studies have shown that it is subject to both false negative and false positive results. The pap test should not be used as the sole means to diagnose or exclude pre-malignant and malignant lesions. 04/05/2023 9:11 AM CDT [facility] ENTRAL LABORATORY Other (Cervical) Non-Blood / Unknown 03/25/2023 10:08 AM CDT 03/25/2023 10:27 AM CDT us Noa Knowles MD PATHOLOGY/CYTOLOGY Final Re sult [facility] [address] [place] [address], [place] * ANTI HCV (08/15/2021 2:19 PM UNDERGROUND ELECTRICIAN) HEPATITIS C ANTIBODY Non-React loyd Non-React loyd 08/15/2021 9:03 PM UNDERGROUND ELECTRICIAN [facility] LABORATORY-[facility] TRAL LABORATORY Comment:Antibodies to HCV no t detected; does not exclude the possibility of exposure to HCV. Blood BLOOD SPECIMEN / Unknown Venipuncture / Unknown 08/15/2021 2:19 PM UNDERGROUND ELECTRICIAN 08/15/2021 2:20 PM UNDERGROUND ELECTRICIAN us Kaleb Crawford MD SEND OUTS Final Resu lt Performing Organization Address City/[facility]/ZIP Co de Phone Number [facility] [address] [place] [address], [place] from Last 3 Months or Most Recently Relevant to Health Maintenance Insurance [employer] Advance Directives * Full Code (Latest Code Status on File) Date Activated Date Inactivated Comments 04/02/2022 6:03 PM 04/04/2022 8:06 PM Question Answer Comments Code Status Discussion: Reviewed Preferences Care Teams Gut Sorter Relationship Specialty Start Date End Date Noa Knowles MD [address] [place] [address] PCP - General Family Practice 03/02/23 Woo Lynne MD [address] [place] [address] Gastroenterology Gastroenterology 04/02/23
--- OUTSIDE RECORDS SUMMARY | 2025-04-09 12:15 | XMS_ITS | Encounter Summary ---
Author Organization [place] Address [address] [place] [address] Care Team Providers Care Olive Picker Name Role Phone Mohit Shelby MD Unavailable [facility] Primary Care Provider Encounter Details Date Type Department Care Team (Late st Contact Info) Description 02/08/2024 My[facility] Medical Advice [facility] Gastroenterology Clinic [address] [address] Hafsa Maddox, SIL[place] Social History Tobacco Use Types Packs/Day Years Used Date Smoking Tobacco: Never Smokeless Tobacco: Never Alcohol Use Standard Drinks/Week Comments Yes 0 (1 standard drink = 0.6 oz pur e alcohol) occassionally PHQ-2 Answer Date Recorded PHQ-2 Score 0 06/23/2023 Adolescent Education Answer Date Record ed Getting School Help Needed Not on file 05/01 Comments No Sex and Gender Information Value Date Recorded Sex Assigned at Female 07/10/2021 7:57 AM CARD MAKER Legal Sex Female 3:57 PM CARD MAKER Gender Identity Female 07/10/2021 7:57 AM CARD MAKER Sexual Orientation Not on file documented as of this encounter Plan of Treatment Not on file documented as of this encounter Visit Diagnoses Not on filedocumented in this encounter Additional Health Concerns Assessment Noted Time PHQ-9 Depression Total Score: 9 07/11/20 21 7:34 AM CARD MAKER documented as of this encounter Care Teams Olive Picker Relationship Specialty Start Date End Date [address] [address] PCP - General 01/24/24 Mohit Shelby MD [address] [place] [phone] Fellow Gastroenterology 07/01/21 documented as of this encounter
--- OUTSIDE RECORDS SUMMARY | 2025-04-09 12:15 | XMS_ITS | Encounter Summary ---
Author Organization [place] Address [address] [place] [address] Care Team Providers Care Booster Pump Oiler Name Role Phone Mohit Shelby MD Unavailable [facility] Primary Care Provider Encounter Details Date Type Department Care Team (Late st Contact Info) Description 09/07/2023 [facility] Gastroenterology Clinic [address] [address] [facility] Social History Tobacco Use Types Packs/Day Years [...] Sex Assigned at Female 07/10/2021 7:57 AM COMPUTER SYSTEMS SOFTWARE ENGINEER Legal Sex Female 3:57 PM COMPUTER SYSTEMS SOFTWARE ENGINEER Gender Identity Female 07/10/2021 7:57 AM COMPUTER SYSTEMS SOFTWARE ENGINEER Sexual Orientation Not on file documented as of this encounter Plan of Treatment Not on file documented as of this encounter Visit Diagnoses Not on filedocumented in this encounter Additional Health Concerns Assessment Noted Time PHQ-9 Depression Total Score: 9 07/11/20 21 7:34 AM COMPUTER SYSTEMS SOFTWARE ENGINEER documented as of this encounter Care Teams Booster Pump Oiler Relationship Specialty Start Date End Date [facility] [address] [place] [address] PCP - General 01/24/24 Mohit Shelby MD [address] [place] [address] Fellow Gastroenterology 07/01/21 documented as of this encounter
--- OUTSIDE RECORDS SUMMARY | 2025-04-09 12:15 | XMS_ITS | Encounter Summary ---
Author Organization [place] Address [address] [place] [address] Care Team Providers Care Engineer Systems Name Role Phone Mohit Shelby MD Unavailable System, Provider Not In Primary Care Provider Un available Clinic, [facility] Primary Care Provider Encounter Details Date Type Department Care Team (Late st Contact Info) Description 06/23/2023 [facility] Medical Advice [facility] Gastroenterology Clinic [address] [place] [address] [facility] [place] Social History Tobacco Use Types Packs/Day Years [...] Sex Assigned at Female 07/10/2021 7:57 AM WOODWORKING MACHINIST Legal Sex Female 3:57 PM WOODWORKING MACHINIST Gender Identity Female 07/10/2021 7:57 AM WOODWORKING MACHINIST Sexual Orientation Not on file documented as of this encounter Plan of Treatment Not on file documented as of this encounter Visit Diagnoses Not on filedocumented in this encounter Additional Health Concerns Assessment Noted Time PHQ-9 Depression Total Score: 9 07/11/20 21 7:34 AM WOODWORKING MACHINIST documented as of this encounter Care Teams Engineer Systems Relationship Specialty Start Date End Date System, Provider Not In PCP - General Clinic 06/23/23 06/23/23 Clinic, [address] [address] PCP - General 01/24/24 Mohit Shelby MD [address] [place] [address] Fellow Gastroenterology 07/01/21 documented as of this encounter
--- OUTSIDE RECORDS SUMMARY | 2025-04-09 12:15 | XMS_ITS | Encounter Summary ---
Author Organization [place] Address [address] [place] [address] Care Team Providers Care Meters Superintendent Name Role Phone Mohit Shelby MD Unavailable Clinic, [facility] Primary Care Pr ovider Unavailable System, Provider Not In Primary Care Provider Un available [facility] Primary Care Provider Encounter Details Date Type Department Care Team (Late st Contact Info) Description 10/27/2021 MyC Medical Advice [facility] Hepatology Clinic [address] [address] Mohit Shelby MD [address] [place] [id number] Social History Tobacco Use Types Packs/Day Years Used Date Smoking Tobacco: Never Smokeless Tobacco: Never Alcohol Use Standard Drinks/Week Comments Yes 0 (1 standard drink = 0.6 oz pur e alcohol) occassionally PHQ-2 Answer Date Recorded PHQ-2 Score 6 07/10/2021 Comments No Sex and Gender Information Value Date Recorded Sex Assigned at Female 07/10/2021 7:57 AM TIGHT BARREL INSPECTOR Legal Sex Female 3:57 PM TIGHT BARREL INSPECTOR Gender Identity Female 07/10/2021 7:57 AM TIGHT BARREL INSPECTOR Sexual Orientation Not on file COVID-19 Exposure Response Date Recorded In the last month, have you been in contact with someone who was confirmed or suspected to have Coronavirus / COVID-19? No / Unsure 10/16/2021 8:45 AM TIGHT BARREL INSPECTOR documented as of this encounter Plan of Treatment Not on file documented as of this encounter Visit Diagnoses Not on filedocumented in this encounter Additional Health Concerns Assessment Noted Time PHQ-9 Depression Total Score: 9 07/11/20 21 7:34 AM TIGHT BARREL INSPECTOR documented as of this encounter Care Teams Meters Superintendent Relationship Specialty Start Date End Date Clinic, [facility] [address] [place] [address] PCP - General 10/16/21 11/13/22 System, Provider Not In PCP - General Clinic 06/23/23 06/23/23 [facility], [address] [address] PCP - General 01/24/24 Mohit Shelby MD [address] [place] [phone] Fellow Gastroenterology 07/01/21 documented as of this encounter
--- OUTSIDE RECORDS SUMMARY | 2025-04-09 12:15 | XMS_ITS | Encounter Summary ---
Author Organization [place] Address [address] [place] [address] Care Team Providers Care Repairer And Checker Name Role Phone Mohit Shelby MD Unavailable [facility] Primary Care Provider Encounter Details Date Type Department Care Team (Late st Contact Info) Description 09/13/2023 [facility]ology Clinic [address] [address] [facility] Social History Tobacco Use Types Packs/Day Years [...] Sex Assigned at Female 07/10/2021 7:57 AM SCREW SUPERVISOR Legal Sex Female 3:57 PM SCREW SUPERVISOR Gender Identity Female 07/10/2021 7:57 AM SCREW SUPERVISOR Sexual Orientation Not on file documented as of this encounter Plan of Treatment Not on file documented as of this encounter Visit Diagnoses Not on filedocumented in this encounter Additional Health Concerns Assessment Noted Time PHQ-9 Depression Total Score: 9 07/11/20 21 7:34 AM SCREW SUPERVISOR documented as of this encounter Care Teams Repairer And Checker Relationship Specialty Start Date End Date [facility] [address] [place] [address] PCP - General 01/24/24 Mohit Shelby MD [address] [place] [phone] Fellow Gastroenterology 07/01/21 documented as of this encounter
--- OUTSIDE RECORDS SUMMARY | 2025-04-09 12:15 | XMS_ITS | Encounter Summary ---
Author Organization [place] Address [address] [place] [address] Care Team Providers Care Business Functional Analyst Name Role Phone Mohit Shelby MD Unavailable Clinic, [facility] Primary Care Pr ovider Unavailable System, Provider Not In Primary Care Provider Un available [facility] Primary Care Provider Encounter Details Date Type Department Care Team (Late st Contact Info) Description 01/22/2022 [facility] Medical Advice [facility] Hepatology Clinic [address] [address] Christian [place] Social History Tobacco Use Types Packs/Day Years Used Date Smoking Tobacco: Never Smokeless Tobacco: Never Alcohol Use Standard Drinks/Week Comments Yes 0 (1 standard drink = 0.6 oz pur e alcohol) occassionally PHQ-2 Answer Date Recorded PHQ-2 Score 6 07/10/2021 Comments No Sex and Gender Information Value Date Recorded Sex Assigned at Female 07/10/2021 7:57 AM FLOOR SPACE ALLOCATOR Legal Sex Female 3:57 PM FLOOR SPACE ALLOCATOR Gender Identity Female 07/10/2021 7:57 AM FLOOR SPACE ALLOCATOR Sexual Orientation Not on file COVID-19 Exposure Response Date Recorded In the last 10 days, have yo u been in contact with someone who was confirmed or suspected to have Coronavirus/COVID-19? No / Unsure 01/14/2022 10:55 AM CDT documented as of this encounter Plan of Treatment Not on file documented as of this encounter Visit Diagnoses Not on filedocumented in this encounter Additional Health Concerns Assessment Noted Time PHQ-9 Depression Total Score: 9 07/11/20 21 7:34 AM FLOOR SPACE ALLOCATOR documented as of this encounter Care Teams Business Functional Analyst Relationship Specialty Start Date End Date Clinic, [facility] [address] [place] [address] PCP - General 10/16/21 11/13/22 System, Provider Not In PCP - General Clinic 06/23/23 06/23/23 [facility], [facility] [address] [place] [address] PCP - General 01/24/24 Mohit Shelby MD [address] [place] [address] Fellow Gastroenterology 07/01/21 documented as of this encounter
--- OUTSIDE RECORDS SUMMARY | 2025-04-09 12:15 | XMS_ITS | Clinical Summary ---
Author Organization [place] Address [facility] [place] [address] Care Team Providers Care Cash Applications Coordinator Name Role Phone Mohit Shelby MD Unavailable Clinic, [facility] Primary Care Provider Allergies Active Allergy Reactions Criticality Noted Date Comments Amoxicillin-Pot Clavulanate Rash Low 10/19/2006 Aspirin Buffered Other (See Comments) 1 Ibuprofen Other (See Comments) 04/12/2007 Other reaction(s): Bleeding Octreotide Hives,Rash Low 07/10/2021 Other reaction(s): hives, rash Sulfamethoxazole-Trimet hoprim Nausea and Vomiting 10/19/2006 Medications etonogestrel (NEXPLANON) 68 MG IMPL Inject 1 each Subcutaneous 1 Active omeprazole (PRILOSEC OTC) 20 MG EC tablet Take 20 mg by mouth daily 1 Active Ferrous Sulfate (IRON PO) Active VITAMIN D, CHOLECALCIFEROL , PO Take by mouth daily Active Active Problems Problem Noted Date Diagnosed Date Portal hypertension 06/30/2023 Social History Tobacco Use Types Packs/Day Years [...] Sex Assigned at Female 07/10/2021 7:57 AM RATE INSERTER Legal Sex Female 3:57 PM RATE INSERTER Gender Identity Female 07/10/2021 7:57 AM RATE INSERTER Sexual Orientation Not on file Last Filed Vital Signs Vital Sign Reading Time Taken Comments Blood Pressure 96/60 02/17/2024 12:16 PM CDT Pulse 70 06/23/2023 9:58 AM RATE INSERTER Temperature 36.9 C (98.4 F) 06/23/2023 9:58 AM RATE INSERTER Respiratory Rate 18 06/23/2023 9:58 AM RATE INSERTER Oxygen Saturation 96% 02/17/2024 12:16 PM CDT Inhaled Oxygen Concentration - - Weight 83.7 kg (184 lb 9.6 oz) 06/23/2023 9:58 A M RATE INSERTER Height - - Body Mass Index - - Plan of Treatment Health Maintenance Due Date Last Done Comments ADVANCE CARE PLANNING 1999 ANNUAL REVIEW OF HM ORDERS 1999 YEARLY PREVENTIVE VISIT 03/25/2024 03/25/2023 COVID-19 VACCINE ( season) 2024 04/11/2021, 03/21/2021 PHQ-2 (once per calendar year) 2024 06/23/2023, 07/10/2021, 07/10/2021 INFLUENZA VACCINE (#1) 2025 , 05/08/2019, 06/21/2018, Additional history exists PAP 03/25/2026 03/25/2023, 03/04/2021 DTAP/TDAP/TD VACCINE (8 - Td or Tdap) 03/04/2031 03/04/2021, 03/24/2011, 05/20/2006, Additional history exists ZOSTER VACCINE (1 of 2) 2049 HPV VACCINE Completed 11/02/2013, 06/10, 03/24/2011 MENINGITIS VACCINE Completed 10/15/2017, 03/24/2011 HEPATITIS B VACCINE Completed 04/21/2021, 04/21/2021, 04/09/2017, Additional history exists HEPATITIS C SCREENING Completed 08/15/2021 CHLAMYDIA SCREENING Discontinued 03/25/2023, 08/15/2021, 04/07/2021, Additional history exists HIV SCREENING Completed 03/25/2023, 08/15/2021 MENINGITIS B VACCINE Aged Out No long er eligible based on patient's age to complete this topic PNEUMOCOCCAL VACCINE: PEDIATRICS (0 to 5 YEARS) AND AT-RISK PATIENTS (6 to 49 YEARS) Aged Out No longer eligible based on patient's age to complete this topic Insurance [facility] Care Teams Cash Applications Coordinator Relationship Specialty Start Date End Date [facility], [address] [address] PCP - General 01/24/24 Mohit Shelby MD [address] [place] [phone] Fellow Gastroenterology 07/01/21
--- OUTSIDE RECORDS SUMMARY | 2025-04-09 12:15 | XMS_ITS | Encounter Summary ---
Author Organization [place] Address [address] [place] [address] Care Team Providers Care Battery Loader Name Role Phone Mohit Shelby MD Unavailable Clinic, [facility] Primary Care Pr ovider Unavailable System, Provider Not In Primary Care Provider Un available [facility], [facility] Primary Care Provider Encounter Details Date Type Department Care Team (Late st Contact Info) Description 01/13/2022 [facility] Medical Advice [facility] Hepatology Clinic [address] [address] Christian [place] Social History Tobacco Use Types Packs/Day Years Used Date Smoking Tobacco: Never Smokeless Tobacco: Never Alcohol Use Standard Drinks/Week Comments Yes 0 (1 standard drink = 0.6 oz pur e alcohol) occassionally PHQ-2 Answer Date Recorded PHQ-2 Score 6 07/10/2021 Comments No Sex and Gender Information Value Date Recorded Sex Assigned at Female 07/10/2021 7:57 AM GLASS BENDER Legal Sex Female 3:57 PM GLASS BENDER Gender Identity Female 07/10/2021 7:57 AM GLASS BENDER Sexual Orientation Not on file COVID-19 Exposure [...] Total Score: 9 07/11/20 21 7:34 AM GLASS BENDER documented as of this encounter Care Teams Battery Loader Relationship Specialty Start Date End Date Clinic, [facility] [address] [place] [address] PCP - General 10/16/21 11/13/22 System, Provider Not In PCP - General Clinic 06/23/23 06/23/23 [facility], [facility] [address] [place] [address] PCP - General 01/24/24 Mohit Shelby MD [address] [place] [id number] Fellow Gastroenterology 07/01/21 documented as of this encounter
[2025-04-09 12:24] VITALS: BP 117/66; PULSE 108; RESP 16; TEMP 36.4; O2SAT 97; BMI 36.5
--- NOTE | 2025-04-09 12:31 | CRLHL7_ITS ---
For Patients: As a result of the Century Cures Act, medical imaging exams and procedure reports are released immediately into your electronic medical record. You may view this report before your referring provider. If you have questions, please contact your health care provider. Indication: Fall Technique: Pelvis sacrum and coccyx (4) images Comparison: None. Findings: Bones: Alignment is normal. No fractures or bone lesions. Joint spaces: Joint spaces are preserved. No degenerative changes. Soft tissues: Unremarkable. Impression: No acute findings Dictated by Kiara Ortiz MD @ 04/09/2025 2:09:57 PM (Electronically Signed)
--- NOTE | 2025-04-09 12:32 | ED.BACK ---
HPI - Back Pain/Injury General Chief Complaint: Back Injury/Pain Stated Complaint: Fall, tailbone injury Time Seen by Provider: 04/09/25 12:22 History of Present Illness HPI Narrative: Patient is a 24-year-old woman who stumbled backwards yesterday landing on her tailbone. She has pain in the coccyx and midline of the gluteal cleft. She has been taking Tylenol limited effect. She did have a small amount of blood in her stool today. She has no abdominal pain no nausea no vomiting no fevers no chills. She has had no bruising. No leg pain. No neurologic symptoms and no deficits in range of motion. Pain is 6/10 and localized to the coccyx. Related Data Home Medications ?Medication ?Instructions ?Recorded ?Confirmed ferrous sulfate 325 mg (65 mg 325 mg PO DAILY 04/02/22 04/09/25 iron) tablet (Feosol) multivitamin (Multiple Vitamins 1 tab PO QDAY 06/24/22 04/09/25 tablet) omeprazole 40 mg capsule,delayed 40 mg PO BID 12/29/24 04/09/25 release Allergies Allergy/AdvReac Type Severity Reaction Status Date / Time amoxicillin Allergy Verified 04/09/25 10:34 ibuprofen Allergy Verified 04/09/25 10:34 octreotide Allergy Hives Verified 04/09/25 10:34 sulfamethoxazole (From Allergy nausea Verified 04/09/25 10:34 Sulfamethoxazole-Trimethoprim) vomiting trimethoprim (From Allergy nausea Verified 04/09/25 10:34 Sulfamethoxazole-Trimethoprim) vomiting aspirin AdvReac Verified 04/09/25 10:34 Review of Systems Status of ROS: Reports: 10 or more systems reviewed and unremarkable except as noted in History and below [facility] Medical History Cystitis ?N30.90 - Cystitis, unspecified without hematuria (ICD-10) Bacterial vaginosis ?N76.0 - Acute vaginitis (ICD-10) ?B96.89 - Other specified bacterial agents as the cause of diseases classified elsewhere (ICD-10) Urinary tract infection ?N39.0 - Urinary tract infection, site not specified (ICD-10) Portal hypertension ?K76.6 - Portal hypertension (ICD-10) Hernia ?K46.9 - Unspecified abdominal hernia without obstruction or gangrene (ICD-10) Esophageal varices ?I85.00 - Esophageal varices without bleeding (ICD-10) Thrombocytopenia ?D69.6 - Thrombocytopenia, unspecified (ICD-10) Anemia ?D64.9 - Anemia, unspecified (ICD-10) Surgical History History of endoscopy ?Z98.890 - Other specified postprocedural states (ICD-10) H/O hernia repair (~2002) ?Z98.890 - Other specified postprocedural states (ICD-10) ?Z87.19 - Personal history of other diseases of the digestive system (ICD-10) Family History Father DM (diabetes mellitus), type 2 Social History What is your current living situation?: I presently have a place to live Problems where you live: no known problems In the past 12 months, utilities in danger of being shut off: no In past 12 months, lack of transportation kept you from medical appts, meetings, work, or getting things needed for daily living: no In the past 12 mos, have been you worried that your food would run out before you had money to buy more?: never true In the past 12 mos, the food you bought just didn't last and you didn't have money to buy more?: never true Highest level of school completed/degree received: high school graduate Smoking Status: Never smoker Do you use any of these nicotine containing products: None Second hand tobacco smoke exposure: No How often do you have a drink containing alcohol: never How often do you have six or more drinks on one occasion: Never AUDIT-C Alcohol total score: 0 Non-prescribed substance use: denies use Caffeine: Yes How often does anyone, including family, friends and others, physically hurt you: never How often does anyone, including family, friends and others, insult or talk down to you: never How often does anyone, including family, friends and others, threaten you with harm: never How often does anyone, including family, friends and others, scream or curse at you: never service: No Exam Narrative: Exam Narrative: EXAM GENERAL: Patient appears comfortable and well. EYES: No scleral icterus. LYMPH: No supraclavicular or cervical lymphadenopathy. SKIN: Visible skin seen during exam normal or with benign process only. EXT: No dependent lower extremity pedal edema. HEART: Regular rate and rhythm with no murmurs, rubs, or gallops. LUNGS: Clear to auscultation bilaterally with no crackles or wheezes. ABD: Soft, non tender, non distended. PSYCH: Good eye contact, speech is not pressured. Palpation of the coccyx elicits pain but there is no surrounding erythema bruising or swelling. Const: Vital Signs, click to edit/add: Vital Signs - 24 hr 04/09/25 12:24 Temperature 97.5 F L Pulse Rate [Pulse Oximeter] 108 H Respiratory Rate 16 Blood Pressure [Ri ght Upper Arm] 117/66 Pulse Oximetry 97 Oxygen Delivery Me thod Room Air Course Course ED Course: Patient seen and examined x-ray series of the sacrum and coccyx pending. Vital Signs Vital signs: Initial Vital Signs Temperature 97.5 F L 04/09/25 12:24 Temperature Source Temporal Artery Scan 04/09/25 12:24 Pulse Rate 108 H 04/09/25 12:24 Respiratory Rate 16 04/09/25 12:24 Blood Pressure 117/66 04/09/25 12:24 Blood Pressure Mean 83 04/09/25 12:24 Blood Pressure Position Standing 04/09/25 12:24 Pulse Oximetry 97 04/09/25 12:24 Oxygen Delivery Method Room Air 04/09/25 12:24 Vital Signs Temperature 97.5 F L 04/09/25 12:24 Pulse Rate 108 H 04/09/25 12:24 Respiratory Rate 16 04/09/25 12:24 Blood Pressure 117/66 04/09/25 12:24 Pulse Oximetry 97 04/09/25 12:24 Oxygen Delivery Method Room Air 04/09/25 12:24 Temperature 97.5 F L 04/09/25 12:24 Pulse Rate 108 H 04/09/25 12:24 Respiratory Rate 16 04/09/25 12:24 Blood Pressure 117/66 04/09/25 12:24 Pulse Oximetry 97 04/09/25 12:24 Oxygen Delivery Method Room Air 04/09/25 12:24 MDM - Back Pain/Injury MDM Narrative Medical decision making narrative: Patient presents several days after falling on her bottom. Series unremarkable of her coccyx and sacrum. She has a normal exam. She does have a small amount of blood in her stool which is now resolving. She takes stable medications and has no other concerns. This time I would like to keep her stool soft with stool softeners [id number]. Advance her diet activity and have her follow-up as needed. She can also rotate Tylenol Motrin. Ice as needed. Discharge Plan Discharge Clinical Impression: Injury of coccyx Patient Disposition: Home, Self-Care Condition: Stable Instructions: Back Pain (ED) Additional Instructions: Ice Tylenol 650 mg 4 times a day as needed. Motrin 400 mg 4 times a day as needed. Stool softeners as needed. Follow-up with your doctor as needed. Activity Level: No Restrictions Discharge Diet: Regular Prescriptions: No Action omeprazole 40 mg capsule,delayed release(DR/EC) 40 mg PO BID multivitamin [Multiple Vitamins] Tablet 1 tab PO QDAY ferrous sulfate [Feosol] 325 mg (65 mg iron) tablet 325 mg PO DAILY Follow Up/Referrals: Provider,Not a Local [Primary Care Provider, Family Practice] Stand Alone Forms: Plated Info Instructions
== END 2025-04-09 14:27 | disposition home or self-care (01) ==
PROVIDERS: Emergency Provider Internal Medicine
DX: S39.92XA Unspecified injury of lower back, initial encounter (principal); W19.XXXA Unspecified fall, initial encounter
CPT/HCPCS: 72220; 99283